=== PATIENT | female | born 1970 | race Caucasian/White ===

== ENCOUNTER → 2017-05-16 | Outpatient (CLI) | payer BC ==
[~2017-05-16] MED LIST: ASPI325T39 PO; BUPRTAB51 PO; CBCI IV; GLC/500 PO; HYD50 PO; INSDGIPEN SQ; NVLG SQ; NVLGIPEN SQ; OXYC-609 PO; [UNRECOGNIZED DRUG - CODE] PO
[2017-05-16 17:41] LABS: BASO % 0.5 %; BASO ABS # 0.05 K/uL (0-0.2); COMPLETE YES; EOS % 1.2 %; HEMATOCRIT 34.8 % (37-47); IG% 0.3 %; LYMPH ABS # 2.61 K/uL (1.2-3.4); MEAN CELL VOLUME 87.2 fL (80-100); MEAN CORPUSCULAR HEMOGLOBIN 29.3 pg (25-34); MEAN CORPUSCULAR HGB CONC 33.6 g/dl (32-36); MEAN PLATELET VOLUME 9.9 fL (7.4-10.4); MONO % 5.9 %; NEUT % 66.1 %; PLATELET COUNT 310 K/uL (130-400); RED BLOOD COUNT 3.99 M/uL (4.2-5.4); WHITE BLOOD COUNT 10.05 K/uL (4.8-10.8)
[2017-05-16 18:05] LABS: ALT/SGPT 27 U/L (12-78); BLOOD UREA NITROGEN 13 mg/dl (7-18); BUN/CREATININE RATIO 16.8 (10-20); CALCIUM 9.1 mg/dl (8.5-10.1); CARBON DIOXIDE 30 mmol/L (21-32); CHLORIDE 99 mmol/L (98-107); CHOLESTEROL 167 mg/dl (0-200); CREATININE 0.76 mg/dl (0.60-1.20); GLUCOSE 129 mg/dl (70-99); POTASSIUM 3.5 mmol/L (3.5-5.1); SODIUM 136 mmol/L (136-145); TRIGLYCERIDES 220 mg/dl (0-150); VERY LOW DENSITY LIPOPROT CALC 44 mg/dl
[2017-05-16 18:10] LABS: ALB/GLOB RATIO 0.9 (0.9-2); ALKALINE PHOSPHATASE 93 U/L (45-117); AST/SGOT 14 U/L (15-37); HDL CHOLESTEROL 42 mg/dl; LDL CHOLESTEROL CALCULATED 81 mg/dl
[2017-05-17 08:23] LABS: ESTIMATED AVERAGE GLUCOSE 203 mg/dl; HA1C FLAG Normal (Normal)
== END | disposition home or self-care (01) ==
LOC: C.LABBFT 15:49
PROVIDERS: ATTEND Nurse Practitioner
DX: E11.29 Type 2 diabetes mellitus with other diabetic kidney complication (principal); E78.5 Hyperlipidemia, unspecified; D64.9 Anemia, unspecified

== ENCOUNTER → 2017-05-18 | Outpatient (CLI) | payer BC ==
--- NOTE | 2017-05-18 19:30 | DIAGNOSTIC IMAGING REPORT ---
LEFT FIFTH TOE 3 VIEWS HISTORY: Assess for osteomyelitis. NON HEALING WOUND COMPARISON: None. FINDINGS: Soft tissue swelling within the left fifth toe. There is focal skin ulceration at the PIP joint. Deep to the skin ulceration at the head of the proximal phalanx of the fifth toe there is focal cortical destruction/erosion which measures 4 mm. There are few adjacent bony fragments. This is consistent with osteomyelitis. No dislocation. No radiopaque foreign bodies. IMPRESSION: Focal cortical erosion at the head of the proximal phalanx of the left fifth toe. This is consistent with osteomyelitis. Electronically signed by: Vlad Rodgers M.D. 05/18/2017 7:29 PM Dictated Date/Time: 05/18/2017 7:27 PM
== END | disposition home or self-care (01) ==
LOC: C.RAD 18:46
PROVIDERS: ATTEND Physician Assistant
DX: S91.105A Unspecified open wound of left lesser toe(s) without damage to nail, initial encounter (principal); X58.XXXA Exposure to other specified factors, initial encounter; R93.7 Abnormal findings on diagnostic imaging of other parts of musculoskeletal system

== ENCOUNTER 2022-01-11 16:55 | Inpatient (IN) ==
[2022-01-11] MEDS ORDERED: SODIUM CHLORIDE 0.9% 1000ML 1,000 ML IV STA (17:24)
[2022-01-11] MEDS ORDERED: ONDANSETRON INJ 2 MG/ML 2 ML VIAL IV STA ×2 (17:24→18:47)
--- NOTE | 2022-01-11 17:24 | ED Triage Note ---
Date of Service January 11, 2022 History of Present Illness This patient was briefly evaluated while in triage. An abbreviated physical exam was performed. This patient is a 51-year-old Female with past medical history of type 1 diabetes who presents to the ED for evaluation of vomiting x 1 week, diarrhea to day. Does have lower right abdominal pain. Has not been checking blood sugars because she is having so much pain. Has had sweats and chills Physical Exam CONSTITUTIONAL: Ill appearing, actively vomiting Unable to perform abdominal exam in triage due to vomiting Initial orders for labs, medication, and / or imaging were placed and patient was placed in the waiting area until a bed is available. Please see further documentation for the full ED course. MDM / Impression Impression Impression: DKA (diabetic ketoacidosis), Pyelonephritis, Metabolic acidosis
[2022-01-11 18:33] LABS: Basophils # (auto) 0.03 K/uL (0-0.2); Basophils % (auto) 0.3 %; Hematocrit (blood only) 37.8 % (34.1-44.9); Immature Granulocytes # (auto) 0.06 K/uL (0.00-0.02); Immature Granulocytes % (auto) 0.5 %; Lymphocytes # (auto) 0.37 K/uL (1.2-3.4); Lymphocytes % (auto) 3.2 %; Mean Corpuscular Hemoglobin 29.9 pg (25.0-34.0); Mean Corpuscular Hgb Conc 34.4 g/dL (32.0-36.0); Mean Corpuscular Volume 86.9 fL (80.0-100.0); Mean Platelet Volume 10.3 fL (9.4-12.3); Monocytes # (auto) 0.69 K/uL (0.24-0.82); Neutrophils # (auto) 10.28 K/uL (1.4-6.5); Platelet Count 160 K/uL (130-400); RDW Coefficient of Variation 14.5 % (11.5-14.5); RDW Standard Deviation 46.1 fL (36.4-46.3); Red Blood Count 4.35 M/uL (3.93-5.22); White Blood Count 11.43 K/ul (4.8-10.8)
[2022-01-11] MEDS ORDERED: SODIUM CHLORIDE 0.9% 1000ML 2,000 ML IV ONE (18:47)
--- NOTE | 2022-01-11 19:08 | Emergency Department Note ---
Impression & Plan DKA (diabetic ketoacidosis), Pyelonephritis, Metabolic acidosis ED Provider Note NAME: FROYLAN HOPPER AGE: 51 SEX: F : 1970 ARRIVES VIA: Walk-In INFORMANT: Patient ED PROVIDER(S): Miguel A Silvestre DO CHIEF COMPLAINT: vomiting and abdominal pain HPI: Patient is a 51-year-old female with a past medical history of diabetes, and hyperlipidemia that presents the ER for nausea and vomiting which started this past Monday. She has been throwing up once an hour since then. She has been unable to keep anything down. She has not checked her blood sugars due to not eating or drinking. She denies any dysuria, urgency, or frequency. Belly pain on the right side which started this past Monday as well. Has been constant. No other exacerbating or remitting factors. Pain is sharp and stabbing in nature. Pain is a 6 out of 10. ROS: See above HPI for pertinent positives & negatives. A total of 10 systems reviewed and were otherwise negative. PAST MEDICAL HISTORY:See Below PAST SURGICAL HISTORY:See Below FAMILY HISTORY:See Below SOCIAL HISTORY:See Below HOME MEDICATIONS:See Below ALLERGIES:See Below VITALS:See Below PHYSICAL EXAMINATION: GENERAL: Sitting up in bed, alert, appearing, intermittently vomiting EYE EXAM: normal conjunctiva. OROPHARYNX: mucous membranes are dry LUNGS: Clear to auscultation. Normal chest wall mechanics HEART: no murmurs, S1 normal and S2 normal ABDOMEN: abdomen soft, non-tender, normo-active bowel sounds, no masses, no rebound or guarding. UPPER EXTREMITIES: upper extremities are grossly normal. LOWER EXTREMITIES: No pitting edema. NEURO EXAM: Normal sensorium, cranial nerves II-XII grossly intact, normal speec h, no gross weakness of arms, no gross weakness of legs. MEDICAL DECISION MAKING: Patient is a 51-year-old female who presents ER for nausea vomiting and abdominal pain. She is diabetic. Due to the protracted weights was called to triage room to evaluate patient. IVs were established blood work is obtained. Labs show mild leukocytosis 11,000. No significant anemia. BMP with a hyponatremia at 129 which is pseudo secondary to the elevated blood sugar. Hypokalemia at 3.4. IV potassium was ordered. CO2 was low at 10. VBG with a pH of 7.25 and a CO2 of 11. Sugars were elevated at 535. LFTs and lipase were unremarkable. COVID was negative. CT abdomen pelvis shows pyelonephritis. She is given 2 g Rocephin as well as 3 to 4 L of IV fluids in combination with an insulin drip and bolus as well as IV potassium. She was updated bedside. Discussed with Efe Dorsey for further evaluation. Triage Nursing notes reviewed. Limited review of prior medical records performed Vital Signs: reviewed and remarkable for HTn and tachycardia Differential diagnosis: Differential diagnoses includes but is not limited to gastritis, peptic ulcer disease, GERD, gallbladder disease, pancreatitis, small bowel obstruction, acute coronary syndrome, pericarditis, ischemic bowel, irritable bowel disease, irritable bowel syndrome, appendicitis, diverticulitis, malignancy, hernia, urinary tract infection, torsion, /ectopic (if female), perforation, trauma, infectious. ER treatment provided: See below Diagnostics interpreted by me: ECG: Sinus tachycardia rate of 128 Normal axis No PVCs QTC 458 Cardiac Monitoring: An order was placed for continuous cardiac monitoring. The monitor shows a rate of 124 with sinus rhythm. Laboratory studies: As stated above and show below. Imaging studies: CT abdomen pelvis shows pyelonephritis Consultation(s): Efe Dorsey for further evaluation Procedures: none Critical Care: I have personally spent 35 minutes of critical care time in the direct management of this patient. This includes bedside care, interpretation of diagnostic studies, and testing, discussion with consultants, patient, and family members, and other required patient management activities. This 35 minutes is in excess of all separately billable procedures. Past Med/Surg History Medical History (Updated 01/11/22 @ 22:12 by Miguel A Silvestre DO) Allergic rhinitis Anemia Background diabetic retinopathy associated with type 1 diabetes mellitus Cataract, bilateral Charcot's joint of 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 1 diabetes mellitus Degenerative joint disease Depression Diabetes type 1, uncontrolled Diabetic foot ulcer associated with type 1 diabetes mellitus Diabetic peripheral neuropathy associated with type 1 diabetes mellitus DKA (diabetic ketoacidosis) Dyslipidemia Grief at loss of child Obesity Osteoarthritis Papilloedema, unspecified Pneumonia Tachycardia Vitamin D deficiency Surgical History H/O carpal tunnel repair History of total right hip arthroplasty S/P hip replacement Family History Mother Stroke Sister Arthritis Aunt Breast cancer Uncle Diabetes Social History (Updated 09/02/21 @ 15:23 by Merced Munoz LPN) Smoking Status: Never smoker Second Hand Exposure: No; Hx Alcohol Use: Yes Hx Substance Use: No Communication Ability: Effective Visual Impairment: Severely Limited Hearing Ability: Normal Cobol Engineer Required: No Beliefs That Will Affect Care: None marital status: Current Living Situation: Family Current Living Situation Comment: lives with /2 kids; 1 story; 4 steps/railing to enter current occupational status: employed 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 Feels Safe at Home: Yes Allergies Allergies Allergy/AdvReac Type Severity Reaction Status Date / Time No Known Allergies Allergy Unknown Verified 01/11/22 20:20 Home Meds Home Medications Medication Instructions Recorded Confirmed cinnamon bark 500 mg capsule 1,000 mg PO DAILY 07/07/21 01/11/22 (Cinnamon) ibuprofen 200 mg tablet (Advil) 400 mg PO Q6 PRN Pain 01/11/22 01/11/22 insulin lispro 100 unit/mL 0 unit subcut TIDM PRN SLIDING 01/11/22 01/11/22 subcutaneous pen (Humalog KwikPen SCALE (U-100) Insulin) Previous Rx's Medication Instructions Recorded pen needle, diabetic 31 gauge x #400 ea 04/08/2010/18" (Comfort EZ Pen Plover) flash glucose sensor (FreeStyle #1 ea 05/08/20 Greer 14 Day Sensor kit) furosemide 40 mg tablet 60 mg PO DAILY #45 tabs 02/15/21 metformin 500 mg tablet,extended 1,500 mg PO DAILY #270 tabs 02/15/21 release 24 hr simvastatin 40 mg tablet 40 mg PO QPM #90 tabs 02/15/21 blood sugar diagnostic (OneTouch #400 ea 06/02/21 Verio test strips) blood-glucose meter (OneTouch #1 ea 06/02/21 Verio Flex Start kit) lancets 33 gauge (OneTouch Delica #400 ea 06/02/21 Lancets) insulin degludec 100 unit/mL (3 50 unit (0.5 mL) subcut QPM #15 mL 08/18/21 mL) subcutaneous pen (Tresiba FlexTouch U-100 insulin) hydrocodone 5 mg-acetaminophen 325 1 tab PO Q6H PRN pain #20 tabs 01/07/22 mg tablet Results & Data (ED) Vital Signs Vital Signs - 24 hr 01/11/22 17:17 01/11/22 19:19 01/11/22 19:30 Temperature 36.8 C Temperature Source Temporal Artery Scan Pulse Rate 118 H 125 H Pulse Rate [Apical] 124 H Respiratory Rate 18 27 H 20 Blood Pressure 171/105 H 190/85 H Blood Pressure [Right Arm] 209/98 H Blood Pressure Mean 127 120 Blood Pressure Mean [Right Arm] 135 Pulse Oximetry 99 100 100 Oxygen Delivery Method Room Air Room Air Room Air Sepsis Recent Fever Within 48 Hours No Sepsis New/Unexplained Change in Mental Status No Sepsis Action Taken by Nursing No Action Required 01/11/22 20:00 Temperature Temperature Source Pulse Rate 124 H Pulse Rate [Apical] Respiratory Rate 32 H Blood Pressure 192/116 H Blood Pressure [Right Arm] Blood Pressure Mean 141 Blood Pressure Mean [Right Arm] Pulse Oximetry 100 Oxygen Delivery Method Sepsis Recent Fever Within 48 Hours Sepsis New/Unexplained Change in Mental Status Sepsis Action Taken by Nursing Laboratory Data Result diagrams: 01/11/22 18:23 01/11/22 18:23 Lab Results 01/11/22 01/11/22 01/11/22 Range/Units 18:13 18:23 18:23 WBC 11.43 H (4.8-10.8) K/ul RBC 4.35 (3.93-5.22) M/uL Hgb 13.0 (12.0-16.0) g/dl Hct 37.8 (34.1-44.9) % MCV 86.9 (80.0-100.0) fL MCH 29.9 (25.0-34.0) pg MCHC 34.4 (32.0-36.0) g/dL RDW Std Deviation 46.1 (36.4-46.3) fL RDW Coeff of Benny 14.5 (11.5-14.5) % Plt Count 160 (130-400) K/uL MPV 10.3 (9.4-12.3) fL Immature Gran % (Auto) 0.5 % Neut % (Auto) 90.0 % Lymph % (Auto) 3.2 % Perkins % (Auto) 6.0 % Eos % (Auto) 0.0 % Baso % (Auto) 0.3 % Neut # (Auto) 10.28 H (1.4-6.5) K/uL Lymph # (Auto) 0.37 L (1.2-3.4) K/uL Perkins # (Auto) 0.69 (0.24-0.82) K/uL Eos # (Auto) 0.00 (0-0.50) K/uL Baso # (Auto) 0.03 (0-0.2) K/uL Immature Gran # (Auto) 0.06 H (0.00-0.02) K/uL VBG pH (7.36-7.41) VBG pCO2 (38-50) mmHg VBG pO2 mmHg VBG HCO3 mmol/L VBG O2 Saturation % VBG Base Excess mEq/L Sodium 129 L (136-145) mmol/L Potassium 3.4 L (3.5-5.1) mmol/L Chloride 89 L (98-107) mmol/L Carbon Dioxide 10 L (21-32) mmol/L Anion Gap 30 H (3-11) BUN 18 (6-23) mg/dl Creatinine 0.94 (0.6-1.2) mg/dl Est Cr Clr Drug Dosing Not Reportable Est GFR ( Amer) 82.0 ml/min Est GFR (Non-Af Amer) 70.7 ml/min BUN/Creatinine Ratio 19.1 (10-20) Glucose 535 H* (70-99(Fasting)) mg/dl POC Glucose 531 H* (70-99) mg/dl Calcium 9.8 (8.5-10.1) mg/dl Magnesium (1.7-2.4) mg/dl Total Bilirubin 1.4 H (0.2-1.0) mg/dl AST 10 L (13-39) U/L ALT 17 (7-52) U/L Alkaline Phosphatase 97 (34-104) U/L Total Protein 7.8 (6.0-8.3) gm/dl Albumin 4.1 (3.4-5.0) gm/dl Globulin 3.7 (2.5-4.0) gm/dl Albumin/Globulin Ratio 1.1 (0.9-2) Lipase 7 L (11-82) U/L SARS-CoV-2, RNA, NAAT (NEGATIVE) 01/11/22 01/11/22 01/11/22 Range/Units 18:23 18:32 19:03 WBC (4.8-10.8) K/ul RBC (3.93-5.22) M/uL Hgb (12.0-16.0) g/dl Hct (34.1-44.9) % MCV (80.0-100.0) fL MCH (25.0-34.0) pg MCHC (32.0-36.0) g/dL RDW Std Deviation (36.4-46.3) fL RDW Coeff of Benny (11.5-14.5) % Plt Count (130-400) K/uL MPV (9.4-12.3) fL Immature Gran % (Auto) % Neut % (Auto) % Lymph % (Auto) % Perkins % (Auto) % Eos % (Auto) % Baso % (Auto) % Neut # (Auto) (1.4-6.5) K/uL Lymph # (Auto) (1.2-3.4) K/uL Perkins # (Auto) (0.24-0.82) K/uL Eos # (Auto) (0-0.50) K/uL Baso # (Auto) (0-0.2) K/uL Immature Gran # (Auto) (0.00-0.02) K/uL VBG pH 7.25 L (7.36-7.41) VBG pCO2 25 L (38-50) mmHg VBG pO2 42 mmHg VBG HCO3 11 mmol/L VBG O2 Saturation 66.3 % VBG Base Excess -14.5 mEq/L Sodium (136-145) mmol/L Potassium (3.5-5.1) mmol/L Chloride (98-107) mmol/L Carbon Dioxide (21-32) mmol/L Anion Gap (3-11) BUN (6-23) mg/dl Creatinine (0.6-1.2) mg/dl Est Cr Clr Drug Dosing Est GFR ( Amer) ml/min Est GFR (Non-Af Amer) ml/min BUN/Creatinine Ratio (10-20) Glucose (70-99(Fasting)) mg/dl POC Glucose (70-99) mg/dl Calcium (8.5-10.1) mg/dl Magnesium 1.7 (1.7-2.4) mg/dl Total Bilirubin (0.2-1.0) mg/dl AST (13-39) U/L ALT (7-52) U/L Alkaline Phosphatase (34-104) U/L Total Protein (6.0-8.3) gm/dl Albumin (3.4-5.0) gm/dl Globulin (2.5-4.0) gm/dl Albumin/Globulin Ratio (0.9-2) Lipase (11-82) U/L SARS-CoV-2, RNA, NAAT NEGATIVE (NEGATIVE) 01/11/22 Range/Units 21:51 WBC (4.8-10.8) K/ul RBC (3.93-5.22) M/uL Hgb (12.0-16.0) g/dl Hct (34.1-44.9) % MCV (80.0-100.0) fL MCH (25.0-34.0) pg MCHC (32.0-36.0) g/dL RDW Std Deviation (36.4-46.3) fL RDW Coeff of Benny (11.5-14.5) % Plt Count (130-400) K/uL MPV (9.4-12.3) fL Immature Gran % (Auto) % Neut % (Auto) % Lymph % (Auto) % Perkins % (Auto) % Eos % (Auto) % Baso % (Auto) % Neut # (Auto) (1.4-6.5) K/uL Lymph # (Auto) (1.2-3.4) K/uL Perkins # (Auto) (0.24-0.82) K/uL Eos # (Auto) (0-0.50) K/uL Baso # (Auto) (0-0.2) K/uL Immature Gran # (Auto) (0.00-0.02) K/uL VBG pH (7.36-7.41) VBG pCO2 (38-50) mmHg VBG pO2 mmHg VBG HCO3 mmol/L VBG O2 Saturation % VBG Base Excess mEq/L Sodium (136-145) mmol/L Potassium (3.5-5.1) mmol/L Chloride (98-107) mmol/L Carbon Dioxide (21-32) mmol/L Anion Gap (3-11) BUN (6-23) mg/dl Creatinine (0.6-1.2) mg/dl Est Cr Clr Drug Dosing Est GFR ( Amer) ml/min Est GFR (Non-Af Amer) ml/min BUN/Creatinine Ratio (10-20) Glucose (70-99(Fasting)) mg/dl POC Glucose 475 H* (70-99) mg/dl Calcium (8.5-10.1) mg/dl Magnesium (1.7-2.4) mg/dl Total Bilirubin (0.2-1.0) mg/dl AST (13-39) U/L ALT (7-52) U/L Alkaline Phosphatase (34-104) U/L Total Protein (6.0-8.3) gm/dl Albumin (3.4-5.0) gm/dl Globulin (2.5-4.0) gm/dl Albumin/Globulin Ratio (0.9-2) Lipase (11-82) U/L SARS-CoV-2, RNA, NAAT (NEGATIVE) Administered Medications Insulin Human Regular 250 (units/ Sodium Chloride) 250 mls @ 10 mls/hr IV .Q24H ERNESTO; Protocol Stop: 02/10/22 19:59 Last Admin: 01/11/22 21:25 Dose: 10 units/hr, 10 mls/hr Documented By: ERLINDA Co-signed By: MARCELINOR Discontinued Medications Sodium Chloride (Nss 1000ml) 1,000 mls @ 999 mls/hr IV .Q1H1M STA Stop: 01/11/22 18:24 Last Admin: 01/11/22 18:28 Dose: 999 mls/hr Documented By: DEBRA Sodium Chloride (Nss 1000ml) 2,000 mls @ 999 mls/hr IV .Q2H1M ONE Stop: 01/11/22 20:47 Last Admin: 01/11/22 21:55 Dose: 999 mls/hr Documented By: ERLINDA Potassium Chloride (K Ian / Wtr) 10 meq in 100 mls @ 100 mls/hr IV Q1H ERNESTO; Protocol Stop: 01/11/22 21:59 Last Admin: 01/11/22 20:29 Dose: 100 mls/hr Documented By: ERLINDA Parenteral Electrolytes (Normosol-R) 2,000 mls @ 999 mls/hr IV .Q2H1M ONE Stop: 01/11/22 22:07 Last Admin: 01/11/22 20:38 Dose: 999 mls/hr Documented By: ERLINDA Insulin Human Regular (Novolin-R Bolus From Bag) 10 units IV ONE ONE Stop: 01/11/22 20:46 Last Admin: 01/11/22 21:23 Dose: 10 units Documented By: ERLINDA Co-signed By: KHANH Ioversol (Optiray 320 100ml) 91 ml IV ONCE ONE Stop: 01/11/22 20:53 Last Admin: 01/11/22 20:52 Dose: 91 ml Documented By: LION Galvananeous (Stat Insulin Drip) 1 each N/A NOW STA Stop: 01/11/22 19:57 Last Admin: 01/11/22 21:56 Dose: Not Given Documented By: ERLINDA King (Dka Goal Range 150-250 Mg/Dl) 1 each N/A ONE ONE Stop: 01/11/22 19:57 Last Admin: 01/11/22 21:56 Dose: Not Given Documented By: ERLINDA Ondansetron HCl (Ondansetron Inj 2 Mg/Ml 2 Ml Vial) 4 mg IV NOW STA Stop: 01/11/22 17:25 Last Admin: 01/11/22 18:28 Dose: 4 mg Documented By: DEBRA Ondansetron HCl (Ondansetron Inj 2 Mg/Ml 2 Ml Vial) 4 mg IV NOW STA Stop: 01/11/22 18:48 Last Admin: 01/11/22 21:56 Dose: Not Given Documented By: ERLINDA Ondansetron HCl (Ondansetron Inj 2 Mg/Ml 2 Ml Vial) Confirm Administered Dose 4 mg .ROUTE .STK-MED ONE Stop: 01/11/22 21:16 Last Admin: 01/11/22 21:26 Dose: 4 mg Documented By: ERLINDA Imaging Data Radiologist's Impression: Abdomen/Pelvis CT 01/11/22 18:47 CT OF THE ABDOMEN AND PELVIS WITH CONTRAST CLINICAL HISTORY: Right lower quadrant abdominal pain. COMPARISON STUDY: None. TECHNIQUE: Following IV administration of 91 mL of Optiray, axial images of the abdomen and pelvis were obtained from the lung bases to the proximal femurs. Images were reviewed in the axial, sagittal, and coronal planes. IV contrast was administered without complication. Automated exposure control was utilized for the study. A dose lowering technique was utilized adhering to the principles of ALARA. CT DOSE: 2125.15 mGy.cm FINDINGS: Lung bases are unremarkable. No pneumatosis, free air or portal venous gas is present. This exam is mildly compromised by motion artifact. Mild splenomegaly is noted. There are no hepatic lesions. No biliary or pancreatic ductal dilatation is noted. Subcentimeter left adrenal nodule is indeterminate but probably benign. Right adrenal gland, pancreas and left kidney are normal. There is no hydronephrosis. No urinary calculi are identified. There is mild bladder wall thickening. There are several hypoenhancing foci within the right kidney with mild right perinephric stranding. These include a 2.3 cm hypodense focus within the upper pole of the right kidney without rim enhancement. This may reflect phlegmon. There is mild urothelial thickening of the right collecting system and possibly the right ureter. Colonic diverticulosis is noted without evidence for acute diverticulitis. There is no evidence for a bowel obstruction. The caliber and wall thickness of small and large bowel are normal. The appendix is normal. There are small fat-containing ventral and umbilical hernias. Right hip arthroplasty is noted. No acute fracture or suspicious lesion is identified within visualized skeletal structures. There is no lymphadenopathy. IMPRESSION: 1. Findings suggestive of right pyelonephritis and possible associated right pyelitis and cystitis. This could be correlated with urinalysis. A few hypoenhancing foci within the right kidney measure up to 2.3 cm and may reflect phlegmon. No well-defined rim-enhancing fluid collection to suggest abscess. A follow-up contrast enhanced CT in 3 months to ensure resolution is recommended. 2. No bowel obstruction. No bowel wall thickening. Colonic diverticulosis without evidence for acute diverticulitis. 3. Mild splenomegaly. ACT 112: Negative or not required by law. Electronically signed by: Xiang Lewis M.D. 01/11/2022 9:29 PM Discharge Plan Visit Data Chief Complaint: Illness Stated Complaint: ILLNESS ED Provider: Miguel A Silvestre Discharge Problem: DKA (diabetic ketoacidosis), Pyelonephritis, Metabolic acidosis Forms Stand Alone Forms: [facility] Prescriptions Prescriptions: No Action cinnamon bark [Cinnamon] 500 mg capsule 1,000 mg PO DAILY (DME) pen needle, diabetic [Comfort EZ Pen Plover] 31 gauge x 5/16" needle See Dose Instructions .ROUTE .MEDSUPPLY Qty: 400 2RF Rx Instructions: inject 4 times daily as directed Tresiba FlexTouch U-100 100 unit/mL (3 mL) insulin pen 50 unit subcut QPM Qty: 15 2RF (DME) FreeStyle Greer 14 Day Sensor Kit See Rx Instructions miscellaneous .MEDSUPPLY Qty: 1 3RF Rx Instructions: As directed furosemide 40 mg tablet 60 mg PO DAILY Qty: 45 5RF metformin 500 mg tablet extended release 24 hr 1,500 mg PO DAILY Qty: 270 3RF simvastatin 40 mg tablet 40 mg PO QPM Qty: 90 3RF (DME) lancets [OneTouch Delica Lancets] 33 gauge misc See Dose Instructions .ROUTE .MEDSUPPLY Qty: 400 3RF Rx Instructions: Test blood sugar 4 times daily and prn (DME) OneTouch Verio test strips Strip See Dose Instructions .ROUTE .MEDSUPPLY Qty: 400 3RF Rx Instructions: test blood sugar four times daily and prn (DME) blood-glucose meter [OneTouch Verio Flex Start] Kit See Rx Instructions .Route Qty: 1 0RF Rx Instructions: As directed hydrocodone-acetaminophen 5-325 mg tablet 1 tab PO Q6H PRN (Reason: pain) Qty: 20 0RF ibuprofen [Advil] 200 mg Tablet 400 mg PO Q6 PRN (Reason: Pain) insulin lispro [Humalog KwikPen Insulin] 100 unit/mL insulin pen 0 unit SQ TIDM PRN (Reason: SLIDING SCALE) Referrals Referrals: Priscilla Lewis MD [Primary Care Provider] -
[2022-01-11 19:19] LABS: Base Excess VBG -14.5 mEq/L; HCO3 VBG 11 mmol/L; Oxygen Saturation VBG 66.3 %; PCO2 VBG 25 mmHg (38-50); PO2 VBG 42 mmHg; pH VBG 7.25 (7.36-7.41)
[2022-01-11 19:51] LABS: Alanine Aminotransferase 17 U/L (7-52); Albumin Globulin Ratio 1.1 (0.9-2); Albumin Level 4.1 gm/dl (3.4-5.0); Alkaline Phosphatase 97 U/L (34-104); Anion Gap 30 (3-11); Aspartate Aminotransferase 10 U/L (13-39); BUN Creatinine Ratio 19.1 (10-20); Bilirubin,Total 1.4 mg/dl (0.2-1.0); Blood Urea Nitrogen 18 mg/dl (6-23); Calcium 9.8 mg/dl (8.5-10.1); Carbon Dioxide 10 mmol/L (21-32); Chloride 89 mmol/L (98-107); Est GFR (Non-African American) 70.7 ml/min; Globulin 3.7 gm/dl (2.5-4.0); Glucose 535 mg/dl (70-99(Fasting)); Lipase 7 U/L (11-82); Potassium 3.4 mmol/L (3.5-5.1); Sodium 129 mmol/L (136-145); Total Protein 7.8 gm/dl (6.0-8.3)
[2022-01-11] MEDS ORDERED: DEXTROSE 50% 50 ML SYRINGE IV PRN (19:56)
[2022-01-11] MEDS ORDERED: GLUCOSE 40% GEL 15 GM TUBE PO PRN (19:56)
[2022-01-11] MEDS ORDERED: CARBOHYDRATES FOR HYPOGLYCEMIA PO PRN (19:56)
[2022-01-11] MEDS ORDERED: GLUCOSE 10 TAB/TUBE PO PRN (19:56)
[2022-01-11] MEDS ORDERED: STAT INSULIN DRIP STA (19:56)
[2022-01-11] MEDS ORDERED: DKA GOAL RANGE 150-250 mg/dl ONE (19:56)
[2022-01-11] MEDS ORDERED: GLUCAGON FOR INJ 1 MG VIAL SQ PRN (19:56)
[2022-01-11] MEDS ORDERED: INSULIN REGULAR 250 UNITS in SODIUM CHLORIDE 0.9% 247.5 ML IV SCH (20:00)
[2022-01-11] MEDS ORDERED: NORMOSOL-R 2,000 ML IV ONE (20:07)
[2022-01-11] MEDS: POTASSIUM CHLORIDE / WTR 10 MEQ/100 ML PLCT IV SCH ×2 (20:29→22:27)
[2022-01-11] MEDS ORDERED: NovoLIN-R BOLUS FROM BAG IV ONE (20:45)
[2022-01-11] MEDS ORDERED: OPTIRAY 320 100ml IV ONE (20:52)
[2022-01-11] MEDS ORDERED: INSULIN ASPART PER UNIT SC SCH (21:00)
[2022-01-11] MEDS ORDERED: ONDANSETRON INJ 2 MG/ML 2 ML VIAL ONE (21:15)
--- NOTE | 2022-01-11 21:31 | CT Scan Report ---
CT OF THE ABDOMEN AND PELVIS WITH CONTRAST CLINICAL HISTORY: Right lower quadrant abdominal pain. COMPARISON STUDY: None. TECHNIQUE: Following IV administration of 91 mL of Optiray, axial images of the abdomen and pelvis we re obtained from the lung bases to the proximal femurs. Images were reviewed in the axial, sagittal, and coronal planes. IV contrast was administered without complication. Automated exposure control wa s utilized for the study. A dose lowering technique was utilized adhering to the principles of ALARA . CT DOSE: 2125.15 mGy.cm FINDINGS: Lung bases are unremarkable. No pneumatosis, free air or portal venous gas is present. This exam is mildly compromised by motion artifact. Mild splenomegaly is noted. There are no hepatic lesi ons. No biliary or pancreatic ductal dilatation is noted. Subcentimeter left adrenal nodule is indete rminate but probably benign. Right adrenal gland, pancreas and left kidney are normal. There is no hy dronephrosis. No urinary calculi are identified. There is mild bladder wall thickening. There are sev eral hypoenhancing foci within the right kidney with mild right perinephric stranding. These include a 2.3 cm hypodense focus within the upper pole of the right kidney without rim enhancement. This may reflect phlegmon. There is mild urothelial thickening of the right collecting system and possibly the right ureter. Colonic diverticulosis is noted without evidence for acute diverticulitis. There is no evidence for a bowel obstruction. The caliber and wall thickness of small and large bowel are normal . The appendix is normal. There are small fat-containing ventral and umbilical hernias. Right hip art hroplasty is noted. No acute fracture or suspicious lesion is identified within visualized skeletal s tructures. There is no lymphadenopathy. IMPRESSION: 1. Findings suggestive of right pyelonephritis and possible associated right pyelitis and cystitis. T his could be correlated with urinalysis. A few hypoenhancing foci within the right kidney measure up to 2.3 cm and may reflect phlegmon. No well-defined rim-enhancing fluid collection to suggest abscess . A follow-up contrast enhanced CT in 3 months to ensure resolution is recommended. 2. No bowel obstruction. No bowel wall thickening. Colonic diverticulosis without evidence for acute diverticulitis. 3. Mild splenomegaly. ACT 112: Negative or not required by law. Electronically signed by: Xiang Lewis M.D. 01/11/2022 9:29 PM
[2022-01-11] MEDS ORDERED: cefTRIAXone SODIUM 2,000 MG/70 ML BAG IV STA (21:38)
--- NOTE | 2022-01-11 22:04 | History & Physical Report ---
Date of Service January 11, 2022 Assessment & Plan (1) DKA (diabetic ketoacidosis): Plan: -VBG showed 7.25 pH, 25 pCO2 -BMP: Na 129, K 3.4, Cl 89, CO2 10, anion gap 30 -POC glucose 531, lactate 1.5 # -Patient has been a uncontrolled diabetic in the past with HgA1C between 8.7- 12.5 from [id number]. -Patient has not been taking her insulin and has not been checking her sugars recently -DKA protocol below: Insulin gtt per protocol Received 3L NSS in ED Continue NSS + 20 mEq KCl @ 250mL/hr Once BSG goal is achieved (150-250), change fluids to D5 NSS + 20 mEq KCl @ 250mL/hr Continue BSG q1h BMP, magnesium, phosphorous, and VBG q4h Once anion gap closes, switch from insulin gtt to sq Diabetic education consult placed, recommendations appreciated (2) Pyelonephritis of right kidney: Plan: -CT ab/pelvis findings suggest R pyelonephritics and possible associated R pyelitis and cystitis. -Cr was normal 0.94 -Will continue ceftriaxone IV 2g q24 hours -UA showed 3+ glucose, 4+ketones, 3+blood, 10-30 WBC, 10-20 epithelial cells (3) Diabetes type 1, uncontrolled: Plan: -Patient has history of uncontrolled diabetes with high HgA1C, ulcers, osteomyelitis, -Will have patient talk with clinical nurse educator to discuss further management (4) RUQ pain: Plan: -Total bilirubin 1.4 -AST, ALT, Lipase, Alk phos WNL -CT ab/pelvis was negative for any gallbladder pathology -Will obtain RUQ US. (5) Diabetic foot ulcers: Plan: -Wound care nurse consult -Wound care daily (6) Pseudohyponatremia: Plan: -Na 129 on labs but when corrected for hyperglycemia = 136 -No treatment needed at this time, continue to monitor in AM labs (7) Dyslipidemia: Plan: -Holding home statin. Can continue on discharge (8) Lumbar radiculopathy: Plan: -holding home oxycodone. Will considering restarting once DKA resolves. Plan Code staus: Full code DVT ppx: lovenox Dispo: PCU/Tele Thank you for allowing me to participate in the care of your patient. -Dr. Jerrod Ayala PGY1 History of Present Illness Chief Complaint: N/V Primary Care Provider: Priscilla Lewis MD Patient is a 51 y/o female with PMHx of DM type 1 (uncontrolled), HLD, charcot's joint of foot, multiple diabetic foot ulcers with previous osteomyelitis, presents today with N/V since Monday. she states that she has been vomiting every hour and not been able to eat anything. She states that she is currently taking metformin, Humalog and SSI but has not taken anything since Monday. She has not recently checked her sugars since Monday. She also c/o R sided ab pain that started around the same time as the N/V on Monday. She also states that she saw ortho last for sciatic pain and was started on 1 oxycodone every 6 hours. On top of the oxycodone, she is also taking 4 Advil every 6 hours but the pain still persists. She states that has some SOB recently. She denies any dysuria, urinary frequency or urgency, fevers, chills, or new infections. Allergies Allergy/AdvReac Type Severity Reaction Status Date / Time No Known Allergies Allergy Unknown Verified 01/11/22 20:20 Home Medications Medication Instructions Recorded Confirmed Type pen needle, diabetic 31 gauge x #400 ea 04/08/20 09/02/21 Rx 5/16" (Comfort EZ Pen [place]) flash glucose sensor (FreeStyle #1 ea 05/08/20 09/02/21 Rx Greer 14 Day Sensor kit) furosemide 40 mg tablet 60 mg PO DAILY #45 tabs 02/15/21 01/11/22 Rx metformin 500 mg tablet,extended 1,500 mg PO DAILY #270 tabs 02/15/21 01/11/22 Rx release 24 hr simvastatin 40 mg tablet 40 mg PO QPM #90 tabs 02/15/21 01/11/22 Rx blood sugar diagnostic (OneTouch #400 ea 06/02/21 09/02/21 Rx Verio test strips) blood-glucose meter (OneTouch #1 ea 06/02/21 09/02/21 Rx Verio Flex Start kit) lancets 33 gauge (OneTouch Delica #400 ea 06/02/21 09/02/21 Rx Lancets) cinnamon bark 500 mg capsule 1,000 mg PO DAILY 07/07/21 01/11/22 History (Cinnamon) insulin degludec 100 unit/mL (3 50 unit (0.5 mL) subcut QPM #15 mL 08/18/21 01/11/22 Rx mL) subcutaneous pen (Tresiba FlexTouch U-100 insulin) hydrocodone 5 mg-acetaminophen 325 1 tab PO Q6H PRN pain #20 tabs 01/07/22 01/11/22 Rx mg tablet ibuprofen 200 mg tablet (Advil) 400 mg PO Q6 PRN Pain 01/11/22 01/11/22 History insulin lispro 100 unit/mL 0 unit subcut TIDM PRN SLIDING 01/11/22 01/11/22 History subcutaneous pen (Humalog KwikPen SCALE (U-100) Insulin) Past Med/Surg History Medical History (Updated 01/11/22 @ 23:14 by Jerrod Ayala DO) Allergic rhinitis Anemia Background diabetic retinopathy associated with type 1 diabetes mellitus Cataract, bilateral Charcot's joint of 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 1 diabetes mellitus Degenerative joint disease Depression Diabetes type 1, uncontrolled Diabetic foot ulcer associated with type 1 diabetes mellitus Diabetic foot ulcers Diabetic peripheral neuropathy associated with type 1 diabetes mellitus DKA (diabetic ketoacidosis) Dyslipidemia Grief at loss of child Obesity Osteoarthritis Papilloedema, unspecified Pneumonia Tachycardia Vitamin D deficiency Surgical History H/O carpal tunnel repair History of total right hip arthroplasty S/P hip replacement Family History Mother Stroke Sister Arthritis Aunt Breast cancer Uncle Diabetes Social History (Updated 09/02/21 @ 15:23 by Merced Munoz LPN) Smoking Status: Never smoker Second Hand Exposure: No; Hx Alcohol Use: Yes Hx Substance Use: No Communication Ability: Effective Visual Impairment: Severely Limited Hearing Ability: Normal Frame Runner Required: No Beliefs That Will Affect Care: None marital status: Current Living Situation: Family Current Living Situation Comment: lives with /2 kids; 1 story; 4 steps/railing to enter current occupational status: employed 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 Feels Safe at Home: Yes Review of Systems Review of Systems: All systems reviewed & are unremarkable except as noted in HPI & below Physical Exam Constitutional: + acute distress, + obese and cooperative Eyes: PERRL, conjunctivae normal, anicteric sclerae ENMT: external ear and nose normal, oropharynx normal Respiratory: + tachypneic Auscultation: lungs clear to auscultation bilaterally Cardiovascular: Rate/Rhythm: regular rhythm and + tachycardic Heart Sounds: no murmur Extremities: no edema Gastrointestinal (Abdomen): Inspection/Auscultation: normal bowel sounds Percussion/Palpation: + abdomen tender (R side) and abdomen soft Musculoskeletal: R foot in boot, L foot no pitting edema Skin: no rashes, warm and dry Psychiatric: A+Ox3, euthymic affect Results & Data Results & Data ([facility]) Vital Signs (Past 12 Hours) Vital Signs Temp Pulse Pulse Resp BP BP Pulse Ox 01/11/22 20:00 124 H 32 H 192/116 H 100 01/11/22 19:30 125 H 20 190/85 H 100 01/11/22 19:19 124 H 27 H 209/98 H 100 01/11/22 17:17 36.8 C 118 H 18 171/105 H 99 O2 Del Method 01/11/22 20:00 01/11/22 19:30 Room Air 01/11/22 19:19 Room Air 01/11/22 17:17 Room Air Supervising Physician Co-Signing Physician Notes I supervised Jerrod Ayala on this admission. I interviewed and examined the patient independently of him. The plan is as written in the note except for any following changes/exceptions: None 51yo F w/ hx of poorly-controlled diabetes admitted today for DKA likely due to pyelonephritis. No symptoms of UTI, but CT a/p showed right pyelonephritis, and she does have right-sided pain. She is not in acute distress on my interview, and vitals are stable apart from tachycardia. Will treat with ceftriaxone for pyelonephritis while cultures cook and will also get RUQ u/s as some of her pain is more in the RUQ than right flank. DKA being treated via insulin protocol. Resident Activity Tracking Resident Involvement: Resident Care Provided Care Provided: Adult [facility]
[2022-01-11 23:12] LABS: Appearance Urine Clear (Clear); Bacteria Urine Automated Negative (Negative); Bilirubin Urine Negative (Negative); Blood Urine 3+ (Negative); Cast Urine Automated 0 /lpf (0-5); Color Urine Yellow; Glucose Urine UA 3+ (Negative); Ketones Urine 4+ (Negative); Leukocyte Esterase Urine Negative (Negative); Nitrite Urine Negative (Negative); Protein Urine 1+ (Negative); RBC Urine Automated 0-4 /hpf (0-4); Specific Gravity Urine 1.026 (1.000-1.030); Urobilinogen Urine Negative (Negative)
[2022-01-12] MEDS ORDERED: STAT IV Infusion **Titration per Protocol STA (00:06)
[2022-01-12] MEDS ORDERED: DKA GOAL RANGE 150-250 mg/dl ONE (00:06)
[2022-01-12] MEDS ORDERED: SODIUM CHLORIDE 0.45 % 1,000 ML IV SCH (00:06)
[2022-01-12] MEDS ORDERED: INSULIN REGULAR 250 UNITS in SODIUM CHLORIDE 0.9% 247.5 ML IV SCH (00:06)
[2022-01-12] MEDS ORDERED: PHARMACY GLYCEMIC MGMT CONSULT PRN (00:06)
[2022-01-12] MEDS ORDERED: PENDING 1/2NSS+20mEq KCL IVF SCH (00:06)
[2022-01-12 00:19] LABS: Anion Gap 24 (3-11); BUN Creatinine Ratio 20.2 (10-20); Blood Urea Nitrogen 18 mg/dl (6-23); Calcium 9.1 mg/dl (8.5-10.1); Carbon Dioxide 11 mmol/L (21-32); Chloride 98 mmol/L (98-107); Est GFR (African American) 87.6 ml/min; Est GFR (Non-African American) 75.6 ml/min; Glucose 389 mg/dl (70-99(Fasting)); Magnesium 1.7 mg/dl (1.7-2.4); Phosphorus 2.5 mg/dl (2.5-4.9); Potassium 3.2 mmol/L (3.5-5.1); Sodium 133 mmol/L (136-145)
[2022-01-12] MEDS ORDERED: POTASSIUM CHLORIDE 20 MEQ in SODIUM CHLORIDE 0.45 % 1,000 ML IV SCH (01:00)
[2022-01-12] MEDS ORDERED: CARBOHYDRATES FOR HYPOGLYCEMIA PO PRN (01:00)
[2022-01-12] MEDS ORDERED: GLUCAGON FOR INJ 1 MG VIAL IM PRN (01:00)
[2022-01-12] MEDS ORDERED: Patient's HEIGHT &/or WEIGHT Needed SCH (01:00)
[2022-01-12] MEDS ORDERED: GLUCOSE 10 TAB/TUBE PO PRN (01:00)
[2022-01-12] MEDS ORDERED: DEXTROSE 50% 50 ML SYRINGE IV PRN (01:00)
[2022-01-12] MEDS ORDERED: GLUCOSE 40% GEL 15 GM TUBE PO PRN (01:00)
[2022-01-12] MEDS ORDERED: SODIUM CHLOR 0.45% + 20MEQ KCL 20 MEQ/1,000 ML BAG IV SCH (01:15)
[2022-01-12] MEDS: SODIUM CHLOR 0.45% + 20MEQ KCL 20 MEQ/1,000 ML BAG IV SCH ×2 (01:28→08:19)
[2022-01-12] MEDS: PENDING D5 1/2NS+20mEq KCL IVF SCH ×3 (01:32→06:08)
[2022-01-12] MEDS ORDERED: MoRPHine SULFATE 4 MG/ML 1 ML CARP\\VIAL IV STA (01:55)
[2022-01-12 03:14] LABS: Albumin Globulin Ratio 1.1 (0.9-2); Albumin Level 3.4 gm/dl (3.4-5.0); BUN Creatinine Ratio 20.5 (10-20); Bilirubin,Total 0.6 mg/dl (0.2-1.0); Calcium 8.4 mg/dl (8.5-10.1); Creatinine Clr Calc Pharmacy 115.2 ml/min; Est GFR (African American) 111.3 ml/min; Magnesium 1.7 mg/dl (1.7-2.4); Phosphorus 1.8 mg/dl (2.5-4.9); Total Protein 6.4 gm/dl (6.0-8.3)
[2022-01-12] MEDS ORDERED: ONDANSETRON INJ 2 MG/ML 2 ML VIAL ONE (04:17)
[2022-01-12] MEDS ORDERED: POTASSIUM CHLORIDE CRTAB 20 MEQ TABCR PO STA (05:13)
--- NOTE | 2022-01-12 05:13 | Billing Data ---
Date of Service January 12, 2022 Coding Level of Care Code 70935 Initial Inpt Care Lvl 3
[2022-01-12] MEDS: D5W AND 1/2NSS + 20MEQ KCL 20 MEQ/1,000 ML BAG IV SCH ×3 (05:35→14:19)
[2022-01-12] MEDS ORDERED: PROMETHAZINE HCL 25 MG TAB PO ONE (07:06)
[2022-01-12 07:30] LABS: BUN Creatinine Ratio 20.7 (10-20); Calcium 8.3 mg/dl (8.5-10.1); Est GFR (African American) 124.6 ml/min; Est GFR (Non-African American) 107.5 ml/min; Magnesium 1.5 mg/dl (1.7-2.4); Phosphorus 1.5 mg/dl (2.5-4.9); Potassium 2.8 mmol/L (3.5-5.1)
[2022-01-12] MEDS ORDERED: POTASSIUM PHOS 3 MMOL/1 ML INFUSION IV STA ×3 (07:41→17:54)
--- NOTE | 2022-01-12 07:47 | Ultrasound Report ---
US abdomen limited CLINICAL HISTORY: RUQ pain, elevated Tbili TECHNIQUE: Multiple real-time sonographic images of the right upper quadrant were obtained. Comparison: Comparison is made to CT abdomen pelvis 01/11/2022 FINDINGS: The liver is diffusely echogenic in appearance with poor ultrasound penetration, with normal contour, which is consistent with fatty infiltration. The liver measures 21 cm in length. No focal mass lesio ns are seen. No intrahepatic ductal dilatation is seen. No gallstones or sludge are identified wi thin the gallbladder. The gallbladder wall is not thickened. There is no pericholecystic fluid presen t. Rosas's sign cannot be assessed as the patient received pain medication. The common duct measures 0.4 cm in diameter at the level of the hepatic artery. The visualized portions of the pancreas appe ar normal. Pelviectasis is seen in the right kidney. There is an echogenic focus in the upper pole. No ascites or free fluid is seen in Leary's pouch. IMPRESSION: 1. Hepatic steatosis. 2. Echogenic focus in the right kidney corresponding to CT findings of pyelonephritis with possible phlegmon. ACT 112: Negative or not required by law. Electronically signed by: Matthew Chiu M.D. 01/12/2022 7:46 AM
[2022-01-12] MEDS ORDERED: POTASSIUM PHOSPHATE 15 MMOL in SODIUM CHLORIDE 0.9% 250 ML IV ONE (08:00)
[2022-01-12] MEDS ORDERED: PROMETHAZINE 12.5 MG/50.5 ML NSS IV ONE (08:02)
[2022-01-12 09:46] LABS: Estimated Average Glucose 206 mg/dl; Hemoglobin A1C 8.8 % (4.5-5.6)
[2022-01-12] MEDS: ENOXAPARIN INJ 40 MG/0.4 ML SYR SQ SCH (09:56)
[2022-01-12] MEDS: MAGNESIUM SULFATE / D5W 1 GM/100 ML BAG IV SCH ×2 (09:57→11:56)
[2022-01-12] MEDS: INSULIN ASPART PER UNIT SC SCH ×4 (10:36→21:14)
[2022-01-12 11:30] LABS: BUN Creatinine Ratio 15.5 (10-20); Calcium 8.3 mg/dl (8.5-10.1); Est GFR (African American) 124.6 ml/min; Est GFR (Non-African American) 107.5 ml/min; Magnesium 1.7 mg/dl (1.7-2.4); Phosphorus 2.7 mg/dl (2.5-4.9); Potassium 3.3 mmol/L (3.5-5.1)
[2022-01-12] MEDS ORDERED: LANTUS PER UNIT CHARGE SQ ONE (12:15)
[2022-01-12] MEDS: ONDANSETRON INJ 2 MG/ML 2 ML VIAL IV PRN (12:59)
[2022-01-12] MEDS ORDERED: hydrALAZINE HCL 20 MG/ML VIAL ONE (13:49)
--- NOTE | 2022-01-12 14:16 | Pharmacy Report ---
Pharmacy Glycemic Short Note 2 - Date of Service January 12, 2022 - Glycemic Short BSG Results (Last 24 hours): 01/11/22 01/11/22 01/11/22 18:13 18:23 21:51 Glucose 535 H* POC Glucose 531 H* 475 H* 01/11/22 01/11/22 01/12/22 22:56 23:35 00:55 Glucose 389 H* POC Glucose 411 H* 304 H* 01/12/22 01/12/22 01/12/22 02:03 02:26 02:26 Glucose 207 H Cancelled POC Glucose 230 H 01/12/22 01/12/22 01/12/22 03:03 04:03 05:11 Glucose POC Glucose 191 H 153 H 117 H 01/12/22 01/12/22 01/12/22 06:22 06:48 07:45 Glucose 235 H POC Glucose 200 H 236 H 01/12/22 01/12/22 01/12/22 08:48 09:50 10:47 Glucose 272 H POC Glucose 284 H 252 H 01/12/22 11:19 Glucose POC Glucose 285 H OUTPATIENT ANTIDIABETIC REGIMEN: * Tresiba 50 units SC HS * Humalog 22-30 SC TIDM (patient reports this dose on average) * Metformin 1000 mg PO BIDM * No longer takes Trulicity due to upset stomach * HbA1c = 8.8% (01/12/22) ASSESSMENT: * 51 yo F admitted overnight secondary to nausea and vomiting. Found to have pyelonephritis and be in diabetic ketoacidosis. Pharmacy has been consulted to assist with inpatient glycemic management. Patient is listed as a type 1 diabetic but also takes Metformin. A1c from today is elevated at 8.8% (up from 5.9% in August 2021). Patient admits to not checking blood glucose or taking her insulin recently. She is ordered a type 1 diabetic diet but is not eating secondary to nausea. * Initial DKA labs: VBG pH = 7.25, CO2 10, Anion gap 30, POC BSG 531 mg/dL. * Received 3 L NSS in ED and was started on insulin drip per protocol. * Started on 1/2 NSS + 20 mEq KCl at 250 mL/hr for a partial bag * BSG improved to goal range quickly so fluids switched to D5 1/2 NSS + 20 mEq KCl at 250 mL/hr * Most recent labs (1047): VBG pH > 7.30, CO2 19, Anion gap 8, POC BSG 285 mg/dL. * Gave 35 units of Lantus at lunchtime (30% reduction in home dose given poor oral intake) * Continue insulin gtt and overlap with Lantus for at least two hours. Ideally, want insulin gtt running less than 2 units/hr when discontinued. * Novolog per calculator for now. Once gtt d/c, will order ACHS checks based on weight/stress of 3. Adding overnight checks for first night. PLAN FOR INPATIENT GLYCEMIC CONTROL: * Hold outpatient oral diabetes medications * Basal insulin * Lantus 35 units SC x 1 * Bolus insulin * NovoLog per scale ACHS or Q6hrs while NPO * Goal Range: Low 110 mg/dL - High 140 mg/dL * Correction Factor: 15 mg/dL/unit * Nutritional / Prandial insulin per carb ratio of 1 unit per 5 grams CHO consumed
[2022-01-12] MEDS: LACTATED RINGER'S 1,000 ML IV SCH (15:41)
[2022-01-12 15:48] LABS: BUN Creatinine Ratio 13.5 (10-20); Calcium 8.3 mg/dl (8.5-10.1); Creatinine Clr Calc Pharmacy 161.7 ml/min; Est GFR (African American) 129.1 ml/min; Est GFR (Non-African American) 111.4 ml/min; Potassium 2.7 mmol/L (3.5-5.1)
[2022-01-12 16:03] LABS: Magnesium 1.8 mg/dl (1.7-2.4); Phosphorus 1.4 mg/dl (2.5-4.9)
--- NOTE | 2022-01-12 16:20 | Hospitalist Progress Note ---
Date of Service January 12, 2022 Assessment & Plan (1) DKA (diabetic ketoacidosis): Plan: -Patient has been a uncontrolled diabetic in the past with HgA1C between 8.7-12 .5 from [id number]. -Patient has not been taking her insulin and has not been checking her sugars r ecently -Presented/hospitalized with DKA, treated with insulin gtt, gap closed late this AM/early afternoon and pt was converted to SQ Lantus/Log -tin flipper consulted, appreciate assistance (2) Pyelonephritis of right kidney: Plan: -CT ab/pelvis findings suggest R pyelonephritics and possible associated R pyelitis and cystitis. -Cr was normal 0.94 -Will continue ceftriaxone IV 2g q24 hours -UA showed 3+ glucose, 4+ketones, 3+blood, 10-30 WBC, 10-20 epithelial cells -urine culture pending (3) Electrolyte abnormality: Plan: -Replacement ordered for phosphorous, potassium, and magnesium -Repeat labs ordered for AM (4) Diabetes type 1, uncontrolled: Plan: -Patient has history of uncontrolled diabetes with high HgA1C, ulcers, osteomyelitis -Will have patient talk with placement specialist to discuss further management (5) RUQ pain: Plan: -Total bilirubin 1.4 -AST, ALT, Lipase, Alk phos WNL -CT ab/pelvis was negative for any gallbladder pathology -RUQ u/s-hepatic steatosis and echogenic focus in R kidney c/w pyelo (6) Diabetic foot ulcers: Plan: -Wound care nurse consult -Wound care daily (7) Pseudohyponatremia: Plan: -Na 129 on labs but when corrected for hyperglycemia = 136 -No treatment needed at this time, continue to monitor in AM labs (8) Dyslipidemia: Plan: -Holding home statin. Can continue on discharge (9) Lumbar radiculopathy: Plan: -holding home oxycodone. Will considering restarting once DKA resolves. Plan As above. Added Hydralazine PRN sbp>170 or dbp>100 for accelerated hypertension, takes no BP meds at home and does not carry a documented h/o hypertension. Will monitor-even w/o htn, would benefit from renal protection of adding an JENNI/ARB. Plan to be d/w Dr. Dias. Admission and Anticipated Discharge Date Admission Date: January 11, 2022 Subjective Patient seen on daily rounds this morning. She was hospitalized due to acute DKA which was felt to be driven by R-sided pyelonephritis. This morning, she admits to having n/v but denies diarrhea, abd pain, or gu symptoms. Denies fever/chills, chest pain or dyspnea. Review of Systems Review of Systems: All systems reviewed and are unremarkable except as noted in HPI and below. Denies fever, chills, fatigue, headache, nasal congestion, sore throat, cough, chest pain, shortness of breath, palpitations, orthopnea, PND, abdominal pain, diarrhea, constipation, dysuria, hematuria, frequency, back pain, joint pain or swelling, easy bruising or bleeding, skin lesions or rashes. Physical Exam Physical Exam: GENERAL: 51 yo Wd/Wn WF. NAD. LUNGS: Clear to auscultation bilaterally. No W/R/R. CARDIOVASCULAR: Regular rate and rhythm. No M/G/R. No JVD. ABDOMEN: Soft, non-tender and non-distended. BS normoactive x 4 quad. EXTREMITIES: No edema. Non-tender. Peripheral pulses +2/4. NEUROLOGIC: A&O x3. Nonfocal PSYCHIATRIC: Cooperative. Appropriate mood and affect. SKIN: Warm, dry, intact. No rashes or lesions. Results & Data Results & Data ([facility]) Vital Signs (Past 12 Hours) Vital Signs Pulse Pulse Resp BP Pulse Ox O2 Del Method 01/12/22 15:00 103 H 16 96 Room Air 01/12/22 14:17 187/96 H 01/12/22 13:30 106 H 16 01/12/22 13:30 170/100 H 01/12/22 13:20 204/114 H 01/12/22 13:20 108 H 21 01/12/22 13:00 96 01/12/22 13:00 189/109 H 01/12/22 12:44 99 01/12/22 12:43 194/118 H 01/12/22 10:57 127 H 23 01/12/22 10:31 110 H 15 01/12/22 07:00 99 H 19 01/12/22 06:30 116 H 01/12/22 06:00 115 H 30 H 01/12/22 05:30 106 H 25 H 01/12/22 12:44 114 H 20 194/118 H 100 Room Air 01/12/22 06:14 120 H 24 01/12/22 04:37 118 H 20 122/96 98 Room Air Laboratory Results 01/11/22 18:23 01/12/22 15:03 PG Care Time/CCT Total # of Minutes Spent Total Time Spent with Patient: Total time spent is greater than 50% in coordination of care (as documented) at patient's floor/unit and/or counseling patient: Coding Level of Care Code 32217 Subseq Hosp Care Lvl 3 Diagnoses DKA (diabetic ketoacidosis) E11.10 Pyelonephritis of right kidney N12 Electrolyte abnormality E87.8 Diabetes type 1, uncontrolled E10.65 RUQ pain R10.11 Diabetic foot ulcers E11.621; L97.509 Pseudohyponatremia R79.89 Dyslipidemia E78.5 Lumbar radiculopathy M54.16
[2022-01-12] MEDS ORDERED: POTASSIUM PHOSPHATE 30 MMOL in SODIUM CHLORIDE 0.9% 500 ML IV ONE (16:30)
[2022-01-12] MEDS: PROMETHAZINE HCL 12.5 MG in SODIUM CHLORIDE 0.9% 50 ML IV PRN (16:37)
[2022-01-12] MEDS: POTASSIUM CHLORIDE CRTAB 20 MEQ TABCR PO SCH ×2 (17:22→17:32)
[2022-01-12] MEDS ORDERED: POTASSIUM CHLORIDE 10 MEQ / 100ML WTR IV STA (17:54)
[2022-01-12] MEDS: POTASSIUM CHLORIDE / WTR 10 MEQ/100 ML PLCT IV SCH ×3 (18:43→21:15)
[2022-01-12] MEDS: hydrALAZINE HCL 20 MG/ML VIAL IV PRN (19:39)
[2022-01-12] MEDS: cefTRIAXone SODIUM 2,000 MG in DEXTROSE 5% 50 ML IV SCH (21:15)
[2022-01-12 22:00] LABS: BUN Creatinine Ratio 11.8 (10-20); Calcium 8.7 mg/dl (8.5-10.1); Creatinine Clr Calc Pharmacy 164.9 ml/min; Est GFR (African American) 129.9 ml/min; Est GFR (Non-African American) 112.1 ml/min; Phosphorus 2.4 mg/dl (2.5-4.9); Potassium 3.5 mmol/L (3.5-5.1)
[2022-01-12] MEDS ORDERED: METOPROLOL TARTRATE 1 MG/ML VIAL IV STA (22:37)
[2022-01-13] MEDS: INSULIN ASPART PER UNIT SC SCH ×6 (00:14→21:38)
[2022-01-13] MEDS: PROMETHAZINE HCL 12.5 MG in SODIUM CHLORIDE 0.9% 50 ML IV PRN (00:14)
[2022-01-13] MEDS: LACTATED RINGER'S 1,000 ML IV SCH ×2 (01:41→11:49)
[2022-01-13] MEDS: hydrALAZINE HCL 20 MG/ML VIAL IV PRN ×3 (03:34→17:52)
[2022-01-13] MEDS ORDERED: HYDROmorphone INJ 0.5 MG/0.5 ML SYR IV STA (03:35)
[2022-01-13] MEDS: ONDANSETRON INJ 2 MG/ML 2 ML VIAL IV PRN (04:10)
[2022-01-13 06:09] LABS: Basophils # (auto) 0.02 K/uL (0-0.2); Basophils % (auto) 0.2 %; Eosinophils # (auto) 0.01 K/uL (0-0.50); Eosinophils % (auto) 0.1 %; Hematocrit (blood only) 32.5 % (34.1-44.9); Hemoglobin 11.2 g/dl (12.0-16.0); Immature Granulocytes # (auto) 0.06 K/uL (0.00-0.02); Immature Granulocytes % (auto) 0.7 %; Lymphocytes # (auto) 0.44 K/uL (1.2-3.4); Lymphocytes % (auto) 5.3 %; Mean Corpuscular Hemoglobin 29.6 pg (25.0-34.0); Mean Corpuscular Hgb Conc 34.5 g/dL (32.0-36.0); Mean Platelet Volume 9.8 fL (9.4-12.3); Monocytes # (auto) 0.84 K/uL (0.24-0.82); Monocytes % (auto) 10.1 %; Neutrophils # (auto) 6.96 K/uL (1.4-6.5); Neutrophils % (auto) 83.6 %; Platelet Count 119 K/uL (130-400); RDW Coefficient of Variation 14.2 % (11.5-14.5); RDW Standard Deviation 44.8 fL (36.4-46.3); Red Blood Count 3.78 M/uL (3.93-5.22); White Blood Count 8.33 K/ul (4.8-10.8)
[2022-01-13 06:31] LABS: BUN Creatinine Ratio 12.2 (10-20); Calcium 8.6 mg/dl (8.5-10.1); Creatinine Clr Calc Pharmacy 171.6 ml/min; Est GFR (African American) 131.7 ml/min; Est GFR (Non-African American) 113.6 ml/min
[2022-01-13] MEDS: ENOXAPARIN INJ 40 MG/0.4 ML SYR SQ SCH (08:07)
[2022-01-13] MEDS ORDERED: METOPROLOL TARTRATE 1 MG/ML VIAL IV ONE (08:11)
[2022-01-13] MEDS ORDERED: POTASSIUM PHOS 3 MMOL/1 ML INFUSION IV STA (08:35)
[2022-01-13] MEDS ORDERED: POTASSIUM PHOSPHATE 15 MMOL in SODIUM CHLORIDE 0.9% 250 ML IV ONE (09:00)
[2022-01-13] MEDS ORDERED: LANTUS PER UNIT CHARGE SQ SCH ×2 (09:00→21:00)
[2022-01-13] MEDS: POTASSIUM CHLORIDE / WTR 10 MEQ/100 ML PLCT IV SCH ×2 (09:18→10:27)
[2022-01-13] MEDS: METOPROLOL TARTRATE 1 MG/ML VIAL IV PRN ×2 (11:55→17:24)
[2022-01-13] MEDS ORDERED: LANTUS PER UNIT CHARGE SQ STA (11:57)
--- NOTE | 2022-01-13 12:13 | Pharmacy Report ---
Pharmacy Glycemic Short Note 2 - Date of Service January 13, 2022 - Glycemic Short BSG Results (Last 24 hours): 01/12/22 01/12/22 01/12/22 12:13 13:03 14:10 Glucose POC Glucose 291 H 285 H 256 H 01/12/22 01/12/22 01/12/22 15:03 15:14 16:13 Glucose 269 H POC Glucose 263 H 214 H 01/12/22 01/12/22 01/12/22 17:08 18:02 20:35 Glucose POC Glucose 211 H 186 H 276 H 01/12/22 01/12/22 01/13/22 21:07 23:54 03:50 Glucose 276 H POC Glucose 214 H 193 H 01/13/22 01/13/22 01/13/22 05:27 07:24 11:40 Glucose 205 H POC Glucose 220 H 247 H OUTPATIENT ANTIDIABETIC REGIMEN: * Tresiba 50 units SC HS * Humalog 22-30 SC TIDM (patient reports this dose on average) * Metformin 1000 mg PO BIDM * No longer takes Trulicity due to upset stomach * HbA1c = 8.8% (01/12/22) ASSESSMENT: 01/13: * DKA resolved - converted to SQ yesterday evening. BSGs remain elevated [phone]/dL. Patient received 35 units of SQ basal yesterday (in addition to drip) and 10 units of Novolog. * Diet ordered, however still with no documented intake. Continues on IV antibiotics. * Lantus 25 units this AM (with plan for BID dosing), however given continued elevation of BSGs, will supplement with 10 additional units now for 35 units. Plan for an HS scale (03/29/35 units pending BSG). * Novolog parameters unchanged today, as patient receiving correctional insulin only at this point. 01/12 * 51 yo F admitted overnight secondary to nausea and vomiting. Found to have pyelonephritis and be in diabetic ketoacidosis. Pharmacy has been consulted to assist with inpatient glycemic management. Patient is listed as a type 1 diabetic but also takes Metformin. A1c from today is elevated at 8.8% (up from 5.9% in August 2021). Patient admits to not checking blood glucose or taking her insulin recently. She is ordered a type 1 diabetic diet but is not eating secondary to nausea. * Initial DKA labs: VBG pH = 7.25, CO2 10, Anion gap 30, POC BSG 531 mg/dL. * Received 3 L NSS in ED and was started on insulin drip per protocol. * Started on 1/2 NSS + 20 mEq KCl at 250 mL/hr for a partial bag * BSG improved to goal range quickly so fluids switched to D5 1/2 NSS + 20 m Eq KCl at 250 mL/hr * Most recent labs (1047): VBG pH > 7.30, CO2 19, Anion gap 8, POC BSG 285 mg/dL. * Gave 35 units of Lantus at lunchtime (30% reduction in home dose given poor oral intake) * Continue insulin gtt and overlap with Lantus for at least two hours. Ideally, want insulin gtt running less than 2 units/hr when discontinued. * Novolog per calculator for now. Once gtt d/c, will order ACHS checks based on weight/stress of 3. Adding overnight checks for first night. PLAN FOR INPATIENT GLYCEMIC CONTROL: * Hold outpatient oral diabetes medications * Basal insulin * Lantus 35 units AM + HS scale * Bolus insulin * NovoLog per scale ACHS or Q6hrs while NPO * Goal Range: Low 110 mg/dL - High 140 mg/dL * Correction Factor: 15 mg/dL/unit * Nutritional / Prandial insulin per carb ratio of 1 unit per 5 grams CHO consumed
[2022-01-13] MEDS: lisinopril 10 MG TAB PO SCH (14:52)
[2022-01-13] MEDS: METOCLOPRAMIDE HCL INJ 5 MG/ML 2 ML VIAL IV PRN (14:52)
--- NOTE | 2022-01-13 15:31 | Hospitalist Progress Note ---
Date of Service January 13, 2022 Assessment & Plan (1) Nausea and vomiting: Plan: - Intractable - known pyelo but this is being treated - Suspicious given her epigastric fullness and uncontrolled IDDM history that she may also have gastroparesis - Start Reglan 10mg IV q6h prn for now and transition to 5mg AC if demonstrates improvement - Should be referred for gastric emptying study as outpatient - Add PPI (2) Pyelonephritis of right kidney: Plan: -CT ab/pelvis findings suggest R pyelonephritics and possible associated R pyelitis and cystitis. -Cr was normal 0.94 -Will continue ceftriaxone IV 2g q24 hours -UA showed 3+ glucose, 4+ketones, 3+blood, 10-30 WBC, 10-20 epithelial cells -urine culture prelim GNB-await final culture and tailor abx accordingly (3) DKA (diabetic ketoacidosis): Plan: -Patient has been a uncontrolled diabetic in the past with HgA1C between 8.7- 12.5 from 9320-1729. -Patient has not been taking her insulin and has not been checking her sugars recently -Presented/hospitalized with DKA, treated with insulin gtt, gap closed 01/12 and pt was converted to SQ Lantus/Log -ems educator consulted, appreciate assistance THIS ISSUE HAS RESOLVED (4) Hypertensive urgency: Plan: - Only takes Furosemide at home for HTN, no other meds - Given IDDM, will start on JENNI for renal protection + hypertension - Can continue PRN Hydralazine and PRN Metoprolol IV for hypertensive urgency (5) Electrolyte abnormality: Plan: -Replacement ordered for phosphorous, potassium, and magnesium -Repeat labs ordered for AM (6) Diabetes type 1, uncontrolled: Plan: -Patient has history of uncontrolled diabetes with high HgA1C, ulcers, osteomyelitis -Will have patient talk with agricultural extension educator to discuss further management (7) RUQ pain: Plan: -Total bilirubin 1.4 -AST, ALT, Lipase, Alk phos WNL -CT ab/pelvis was negative for any gallbladder pathology -RUQ u/s-hepatic steatosis and echogenic focus in R kidney c/w pyelo (8) Diabetic foot ulcers: Plan: -Wound care nurse consult -Wound care daily (9) Pseudohyponatremia: Plan: -Na 129 on labs but when corrected for hyperglycemia = 136 -No treatment needed at this time, continue to monitor in AM labs (10) Dyslipidemia: Plan: -Holding home statin. Can continue on discharge (11) Lumbar radiculopathy: Plan: -holding home oxycodone. Will considering restarting once DKA resolves. Plan As above. Hopefully be able to discharge by tomorrow if n/v improves/resolved and electrolytes normalize. Plan to be d/w Dr. Dias. Admission and Anticipated Discharge Date Admission Date: January 11, 2022 Subjective Patient seen on daily rounds this morning. She was hospitalized due to acute DKA which was felt to be driven by R-sided pyelonephritis. She continues to have issues with hypertensive urgency without significant response to PRN Hydralazine. Pt reports ongoing intermittent n/v and some epigastric fullness. She has never been evaluated for gastroparesis. She remains on antibiotics for her UTI/Pyelo. She denies chest pain, dyspnea, fever, chills or gu symptoms. Review of Systems Review of Systems: All systems reviewed and are unremarkable except as noted in HPI and below. Denies fever, chills, fatigue, headache, nasal congestion, sore throat, cough, chest pain, shortness of breath, palpitations, orthopnea, PND, abdominal pain, diarrhea, constipation, dysuria, hematuria, frequency, back pain, joint pain or swelling, easy bruising or bleeding, skin lesions or rashes. Physical Exam Physical Exam: GENERAL: 51 yo Wd/Wn WF. NAD. LUNGS: Clear to auscultation bilaterally. No W/R/R. CARDIOVASCULAR: Regular rate and rhythm. No M/G/R. No JVD. ABDOMEN: Soft, non-tender and non-distended. BS normoactive x 4 quad. EXTREMITIES: No edema. Non-tender. Peripheral pulses +2/4. NEUROLOGIC: A&O x3. Nonfocal PSYCHIATRIC: Cooperative. Appropriate mood and affect. SKIN: Warm, dry, intact. No rashes or lesions. Results & Data Results & Data ([facility]) Vital Signs (Past 12 Hours) Vital Signs Temp Pulse Pulse Resp BP BP BP 01/13/22 15:00 108 H 19 01/13/22 14:56 176/97 H 01/13/22 14:08 109 H 01/13/22 14:00 97 H 14 01/13/22 13:00 97 H 20 08/11/22 12:00 105 H 25 H 01/13/22 15:29 36.8 C 01/13/22 10:42 117 H 01/13/22 10:13 01/13/22 11:55 113 H 179/99 H 01/13/22 08:15 102 H 207/115 H 01/13/22 07:09 36.8 C 108 H 22 207/115 H 01/13/22 04:38 104 H 170/115 H 01/13/22 04:19 197/106 H 01/13/22 03:37 37.1 C 113 H 20 211/104 H Pulse Ox O2 Del Method 01/13/22 15:00 96 01/13/22 14:56 01/13/22 14:08 01/13/22 14:00 01/13/22 13:00 01/13/22 12:00 01/13/22 15:29 01/13/22 10:42 01/13/22 10:13 Room Air 01/13/22 11:55 01/13/22 08:15 01/13/22 07:09 99 Room Air 01/13/22 04:38 01/13/22 04:19 01/13/22 03:37 98 Laboratory Results 01/13/22 05:27 01/13/22 05:27 PG Care Time/CCT Total # of Minutes Spent Total Time Spent with Patient: Total time spent is greater than 50% in coordination of care (as documented) at patient's floor/unit and/or counseling patient: Coding Level of Care Code 72649 Subseq Hosp Care Lvl 3 Diagnoses Nausea and vomiting R11.2 Pyelonephritis of right kidney N12 DKA (diabetic ketoacidosis) E11.10 Hypertensive urgency I16.0 Electrolyte abnormality E87.8 Diabetes type 1, uncontrolled E10.65 RUQ pain R10.11 Diabetic foot ulcers E11.621; L97.509 Pseudohyponatremia R79.89 Dyslipidemia E78.5 Lumbar radiculopathy M54.16
[2022-01-13] MEDS: PANTOprazole 40 MG TAB PO SCH (17:31)
[2022-01-13] MEDS: cefTRIAXone SODIUM 2,000 MG in DEXTROSE 5% 50 ML IV SCH (21:38)
--- NOTE | 2022-01-13 22:49 | Electrocardiogram Report ---
Test Reason : Blood Pressure : / mmHG Vent. Rate : 128 BPM Atrial Rate : 128 BPM P-R Int : 136 ms QRS Dur : 084 ms QT Int : 314 ms P-R-T Axes : 076 014 045 degrees QTc Int : 458 ms Sinus tachycardia Biatrial enlargement Left ventricular hypertrophy Abnormal ECG When compared with ECG of 21-APR-2016 17:37, No significant change was found Confirmed by Joshua Rod ([id number]) on 01/13/2022 10:49:00 PM Referred By: Priscilla Lewis Confirmed By:Joshua Rod
[2022-01-13] MEDS ORDERED: MELATONIN 3 MG TAB PO PRN (23:46)
[2022-01-14] MEDS: hydrALAZINE HCL 20 MG/ML VIAL IV PRN ×3 (00:06→15:39)
[2022-01-14] MEDS: ONDANSETRON INJ 2 MG/ML 2 ML VIAL IV PRN (02:37)
[2022-01-14] MEDS: ENOXAPARIN INJ 40 MG/0.4 ML SYR SQ SCH (08:07)
[2022-01-14] MEDS: METOCLOPRAMIDE HCL INJ 5 MG/ML 2 ML VIAL IV PRN ×2 (08:07→16:43)
[2022-01-14] MEDS ORDERED: PANTOprazole 40 MG TAB PO SCH (09:00)
[2022-01-14] MEDS ORDERED: LANTUS PER UNIT CHARGE SQ SCH (09:00)
[2022-01-14] MEDS: INSULIN ASPART PER UNIT SC SCH ×3 (09:28→17:27)
[2022-01-14 10:02] LABS: BUN Creatinine Ratio 20.5 (10-20); Calcium 8.6 mg/dl (8.5-10.1); Creatinine Clr Calc Pharmacy 191.2 ml/min; Est GFR (African American) 136.4 ml/min; Est GFR (Non-African American) 117.7 ml/min; Magnesium 1.5 mg/dl (1.7-2.4); Phosphorus 2.4 mg/dl (2.5-4.9); Potassium 2.7 mmol/L (3.5-5.1)
[2022-01-14] MEDS: lisinopril 10 MG TAB PO SCH (10:10)
--- NOTE | 2022-01-14 10:31 | Pharmacy Report ---
Pharmacy Glycemic Short Note 2 - Date of Service January 14, 2022 - Glycemic Short BSG Results (Last 24 hours): 01/13/22 01/13/22 01/13/22 11:40 16:09 20:38 Glucose POC Glucose 247 H 239 H 261 H 01/14/22 01/14/22 07:11 09:04 Glucose 229 H POC Glucose 202 H OUTPATIENT ANTIDIABETIC REGIMEN: * Tresiba 50 units SC HS * Humalog 22-30 SC TIDM (patient reports this dose on average) * Metformin 1000 mg PO BIDM * No longer takes Trulicity due to upset stomach * HbA1c = 8.8% (01/12/22) ASSESSMENT: 01/14: * Patient received total of 91 units of insulin yesterday, of which 60 units were basal * Fasting BSG 202 mg/dL - will continue with scale for Lantus and target 60-65 units daily (split into BID dosing) * PO intake poorer yesterday, BSGs elevated throughout the day in the 200s - will tighten CF at lunch if they remain elevated today * N/V reported in nursing notes - will not be overly aggressive when making changes today 01/13: * DKA resolved - converted to SQ yesterday evening. BSGs remain elevated [phone]/dL. Patient received 35 units of SQ basal yesterday (in addition to drip) and 10 units of Novolog. * Diet ordered, however still with no documented intake. Continues on IV antibiotics. * Lantus 25 units this AM (with plan for BID dosing), however given continued elevation of BSGs, will supplement with 10 additional units now for 35 units. Plan for an HS scale (03/29/35 units pending BSG). * Novolog parameters unchanged today, as patient receiving correctional insulin only at this point. 01/12 * 51 yo F admitted overnight secondary to nausea and vomiting. Found to have pyelonephritis and be in diabetic ketoacidosis. Pharmacy has been consulted to assist with inpatient glycemic management. Patient is listed as a type 1 diabetic but also takes Metformin. A1c from today is elevated at 8.8% (up from 5.9% in August 2021). Patient admits to not checking blood glucose or taking her insulin recently. She is ordered a type 1 diabetic diet but is not eating secondary to nausea. * Initial DKA labs: VBG pH = 7.25, CO2 10, Anion gap 30, POC BSG 531 mg/dL. * Received 3 L NSS in ED and was started on insulin drip per protocol. * Started on 1/2 NSS + 20 mEq KCl at 250 mL/hr for a partial bag * BSG improved to goal range quickly so fluids switched to D5 1/2 NSS + 20 mEq KCl at 250 mL/hr * Most recent labs (1047): VBG pH > 7.30, CO2 19, Anion gap 8, POC BSG 285 mg/dL. * Gave 35 units of Lantus at lunchtime (30% reduction in home dose given poor oral intake) * Continue insulin gtt and overlap with Lantus for at least two hours. Ideally, want insulin gtt running less than 2 units/hr when discontinued. * Novolog per calculator for now. Once gtt d/c, will order ACHS checks based on weight/stress of 3. Adding overnight checks for first night. PLAN FOR INPATIENT GLYCEMIC CONTROL: * Hold outpatient oral diabetes medications * Basal insulin * Lantus 35 units AM + 25-30 units HS * Bolus insulin * NovoLog per scale ACHS or Q6hrs while NPO * Goal Range: Low 110 mg/dL - High 140 mg/dL * Correction Factor: 15 mg/dL/unit * Nutritional / Prandial insulin per carb ratio of 1 unit per 5 grams CHO consumed
[2022-01-14] MEDS: MAGNESIUM SULFATE / D5W 1 GM/100 ML BAG IV SCH ×2 (10:53→12:37)
[2022-01-14] MEDS: POTASSIUM CHLORIDE / WTR 10 MEQ/100 ML PLCT IV SCH ×3 (10:56→13:36)
[2022-01-14] MEDS ORDERED: cefTRIAXone SODIUM 2,000 MG in DEXTROSE 5% 50 ML IV SCH (16:00)
--- NOTE | 2022-01-14 16:10 | Discharge Summary ---
Date of Service January 14, 2022 Admission HPI Per Admitting Provider Patient is a 51 y/o female with PMHx of DM type 1 (uncontrolled), HLD, charcot's joint of foot, multiple diabetic foot ulcers with previous osteomyelitis, presents today with N/V since Monday. she states that she has been vomiting every hour and not been able to eat anything. She states that she is currently taking metformin, Humalog and SSI but has not taken anything since Monday. She has not recently checked her sugars since Monday. She also c/o R sided ab pain that started around the same time as the N/V on Monday. She also states that she saw ortho last for sciatic pain and was started on 1 oxycodone every 6 hours. On top of the oxycodone, she is also taking 4 Advil every 6 hours but the pain still persists. She states that has some SOB recently. She denies any dysuria, urinary frequency or urgency, fevers, chills, or new infections. Principal Diagnosis 1. DKA 2. UTI w/ pyelo 3. Electrolyte disorder 4. N/V - suspect gastroparesis Discharge Exam GENERAL: 51 yo Wd/Wn WF. NAD. LUNGS: Clear to auscultation bilaterally. No W/R/R. CARDIOVASCULAR: Regular rate and rhythm. No M/G/R. No JVD. ABDOMEN: Soft, non-tender and non-distended. BS normoactive x 4 quad. EXTREMITIES: No edema. Non-tender. Peripheral pulses +2/4. NEUROLOGIC: A&O x3. Nonfocal PSYCHIATRIC: Cooperative. Appropriate mood and affect. SKIN: Warm, dry, intact. No rashes or lesions. Discharge Data Allergies Allergy/AdvReac Type Severity Reaction Status Date / Time No Known Allergies Allergy Unknown Verified 01/11/22 20:20 Consultations 01/11/22 20:07 ED Decision to Admit Stat Ordered Studies Abdomen/Pelvis CT 01/11/22 18:47 CT OF THE ABDOMEN AND PELVIS WITH CONTRAST CLINICAL HISTORY: Right lower quadrant abdominal pain. COMPARISON STUDY: None. TECHNIQUE: Following IV administration of 91 mL of Optiray, axial images of the abdomen and pelvis were obtained from the lung bases to the proximal femurs. Images were reviewed in the axial, sagittal, and coronal planes. IV contrast was administered without complication. Automated exposure control was utilized for the study. A dose lowering technique was utilized adhering to the principles of ALARA. CT DOSE: 2125.15 mGy.cm FINDINGS: Lung bases are unremarkable. No pneumatosis, free air or portal venous gas is present. This exam is mildly compromised by motion artifact. Mild splenomegaly is noted. There are no hepatic lesions. No biliary or pancreatic ductal dilatation is noted. Subcentimeter left adrenal nodule is indeterminate but probably benign. Right adrenal gland, pancreas and left kidney are normal. There is no hydronephrosis. No urinary calculi are identified. There is mild bladder wall thickening. There are several hypoenhancing foci within the right kidney with mild right perinephric stranding. These include a 2.3 cm hypodense focus within the upper pole of the right kidney without rim enhancement. This may reflect phlegmon. There is mild urothelial thickening of the right collecting system and possibly the right ureter. Colonic diverticulosis is noted without evidence for acute diverticulitis. There is no evidence for a bowel obstruction. The caliber and wall thickness of small and large bowel are normal. The appendix is normal. There are small fat-containing ventral and umbilical hernias. Right hip arthroplasty is noted. No acute fracture or suspicious lesion is identified within visualized skeletal structures. There is no lymphadenopathy. IMPRESSION: 1. Findings suggestive of right pyelonephritis and possible associated right pyelitis and cystitis. This could be correlated with urinalysis. A few hypoenhancing foci within the right kidney measure up to 2.3 cm and may reflect phlegmon. No well-defined rim-enhancing fluid collection to suggest abscess. A follow-up contrast enhanced CT in 3 months to ensure resolution is recommended. 2. No bowel obstruction. No bowel wall thickening. Colonic diverticulosis without evidence for acute diverticulitis. 3. Mild splenomegaly. ACT 112: Negative or not required by law. Electronically signed by: Xiang Lewis M.D. 01/11/2022 9:29 PM Abdomen Ultrasound 01/11/22 22:49 US abdomen limited CLINICAL HISTORY: RUQ pain, elevated Tbili TECHNIQUE: Multiple real-time sonographic images of the right upper quadrant were obtained. Comparison: Comparison is made to CT abdomen pelvis 01/11/2022 FINDINGS: The liver is diffusely echogenic in appearance with poor ultrasound penetration, with normal contour, which is consistent with fatty infiltration. The liver measures 21 cm in length. No focal mass lesions are seen. No intrahepatic ductal dilatation is seen. No gallstones or sludge are identified within the gallbladder. The gallbladder wall is not thickened. There is no pericholecystic fluid present. Rosas's sign cannot be assessed as the patient received pain medication. The common duct measures 0.4 cm in diameter at the level of the hepatic artery. The visualized portions of the pancreas appear normal. Pelviectasis is seen in the right kidney. There is an echogenic focus in the upper pole. No ascites or free fluid is seen in Leary's pouch. IMPRESSION: 1. Hepatic steatosis. 2. Echogenic focus in the right kidney corresponding to CT findings of pyelonephritis with possible phlegmon. ACT 112: Negative or not required by law. Electronically signed by: Matthew Chiu M.D. 01/12/2022 7:46 AM Hospital Course (1) Nausea and vomiting: - Intractable - known pyelo but this is being treated - Suspicious given her epigastric fullness and uncontrolled IDDM history that she may also have gastroparesis - Started Reglan 10mg IV q6h prn which she feels has provided her relief - Should be referred for gastric emptying study as outpatient which will defer to PCP to arrange - Added PPI - Will rx Reglan 5mg AC and HS upon d/c and Protonix 40mg daily (2) Pyelonephritis of right kidney: -CT ab/pelvis findings suggest R pyelonephritics and possible associated R pyelitis and cystitis. -Cr was normal 0.94 -Will continue ceftriaxone IV 2g q24 hours -UA showed 3+ glucose, 4+ketones, 3+blood, 10-30 WBC, 10-20 epithelial cells -urine culture with 20,000 colonies klebsiella, sensitive to rocephin, will transition to cefdinir 300mg BID upon d/c x 6 more days for total of 10 days of therapy (3) DKA (diabetic ketoacidosis): -Patient has been a uncontrolled diabetic in the past with HgA1C between 8.7- 12.5 from 0745-2720. -Patient has not been taking her insulin and has not been checking her sugars recently -Presented/hospitalized with DKA, treated with insulin gtt, gap closed 01/12 and pt was converted to SQ Lantus/Log -inclusion paraeducator consulted, appreciate assistance THIS ISSUE HAS RESOLVED (4) Hypertensive urgency: - Claims that she takes Furosemide at home for HTN, no other meds - Given IDDM, will started on JENNI for renal protection + hypertension - Given Hydralazine and PRN Metoprolol IV for hypertensive urgency - Increased Lisinopril to 20mg daily for added BP control, needs to avoid salt and caffeine - Follow up with PCP who can adjust med regimen to tighten BP control if needed - Changed Lasix to 20mg to take as needed for edema as she carries no h/o CHF and given her electrolyte derangements, would avoid high dose daily use (5) Electrolyte abnormality: -Replacement ordered for phosphorous, potassium, and magnesium -Repeat labs this morning demonstrated ongoing low potassium and magnesium -additional replacement of K and mag ordered -continue replacement at home, rx provided for mag and potassium (6) Diabetes type 1, uncontrolled: -Patient has history of uncontrolled diabetes with high HgA1C, ulcers, osteomyelitis -hematology nurse educator consulted--appreciate assistance (7) RUQ pain: -Total bilirubin 1.4 -AST, ALT, Lipase, Alk phos WNL -CT ab/pelvis was negative for any gallbladder pathology -RUQ u/s-hepatic steatosis and echogenic focus in R kidney c/w pyelo (8) Diabetic foot ulcers: -Wound care nurse consult -Wound care daily (9) Pseudohyponatremia: -Na 129 on labs but when corrected for hyperglycemia = 136 -stable (10) Dyslipidemia: -resume statin therapy (11) Lumbar radiculopathy: -can continue oxyIR prn as prescribed Plan Plan to discharge home today after dose of Rocephin this afternoon. Her electrolytes improved after replacement this morning, repeat potassium 2.9, will replace with another 40 meq of Potassium chloride prior to d/c and she can take an additional 20meq tonight before bed tonight and continue daily supplementation. Close pcp follow up is going to be crucial within 1 week of discharge given her multiple issues. Plan has been d/w Dr. Dias who is in agreement. Total Time Total Time Spent Total Time Spent (In Minutes): >30 minutes Discharge Plan Discharge Items Patient Disposition: Home - Self-Care Reason For Visit: DKA Discharge Diagnosis: diabetic ketoacidosis urinary tract infection high blood pressure Activity: Resume your previous activity Non-emergency contact: Primary Care Provider Call non-emergency contact if: you have any medication questions Follow-up/Referrals: Priscilla Lewis MD [Primary Care Provider] - Diet: Carb Count or DM1 and Low Sodium (2gm) Addtl Attending Provider Instructions: You were hospitalized due to diabetic ketoacidosis which was brought on by a urinary tract infection that spread to your kidney. You were treated with fluids and IV insulin as well as IV antibiotics. It will be important for you to complete the course of antibiotics that are being prescribed to you. You are going to be started on Cefdinir 300mg, take one tablet twice a day until it is gone, next dose is due on 01/15/22 in the morning. Your blood pressure was also high during your stay. We have started you on a blood pressure medication called Lisinopril. You will need to take this medication every day. You are also going to be sent home on potassium and magnesium that you will need to take every day. These are electrolytes that you need to keep your heart functioning properly. Keep salt intake to a minimum and avoid caffeine. Last, it is suspected that you have a stomach disorder called gastroparesis. This is an issue especially prevalent in diabetics where your stomach is very slow to release food into the small intestine. This can cause food to build up in your stomach and make you nauseated. For that, we have prescribed you a medication called Reglan to help move food along faster and reduce your feelings of indigestion and nausea. This medication should be taken before each meal and at bedtime. You are also being prescribed Protonix which will help reduce acid in your stomach. Take this first thing in the morning before eating or drinking. You will need to follow up with your family doctor within 1 week of discharge in order for her to follow up on these issues. If you have any questions when you are discharged, you may call the nonemergency number listed on your discharge paperwork. In the event of a medical emergency, call 911. Pending Studies at Discharge: No Stand-Alone Forms: My [employer], Smoking Cessation Medications and DC Order Prescriptions: New pantoprazole 40 mg Tablet,Delayed Release (Dr/Ec) 40 mg PO DAILY Qty: 30 0RF lisinopril 20 mg tablet 20 mg PO DAILY Qty: 30 0RF metoclopramide HCl [Reglan] 5 mg tablet 5 mg PO ACHS Qty: 120 0RF cefdinir 300 mg capsule 300 mg PO BID 6 Days Qty: 12 0RF Rx Instructions: start 01/15/22 furosemide [Lasix] 20 mg tablet 20 mg PO DAILY PRN (Reason: edema) Qty: 30 0RF potassium chloride 20 mEq tablet extended release 20 meq PO DAILY Qty: 30 0RF magnesium oxide 400 mg (241.3 mg magnesium) tablet 400 mg PO BID Qty: 60 0RF Continued cinnamon bark [Cinnamon] 500 mg capsule 1,000 mg PO DAILY (DME) pen needle, diabetic [Comfort EZ Pen [place]] 31 gauge x 5/16" needle See Dose Instructions .ROUTE .MEDSUPPLY Qty: 400 2RF Rx Instructions: inject 4 times daily as directed Tresiba FlexTouch U-100 100 unit/mL (3 mL) insulin pen 50 unit subcut QPM Qty: 15 2RF (DME) FreeStyle [place] 14 Day Sensor Kit See Rx Instructions miscellaneous .MEDSUPPLY Qty: 1 3RF Rx Instructions: As directed metformin 500 mg tablet extended release 24 hr 1,500 mg PO DAILY Qty: 270 3RF simvastatin 40 mg tablet 40 mg PO QPM Qty: 90 3RF (DME) lancets [OneTouch Delica Lancets] 33 gauge misc See Dose Instructions .ROUTE .MEDSUPPLY Qty: 400 3RF Rx Instructions: Test blood sugar 4 times daily and prn (DME) OneTouch Verio test strips Strip See Dose Instructions .ROUTE .MEDSUPPLY Qty: 400 3RF Rx Instructions: test blood sugar four times daily and prn (DME) blood-glucose meter [OneTouch Verio Flex Start] Kit See Rx Instructions .Route Qty: 1 0RF Rx Instructions: As directed hydrocodone-acetaminophen 5-325 mg tablet 1 tab PO Q6H PRN (Reason: pain) Qty: 20 0RF insulin lispro [Humalog KwikPen Insulin] 100 unit/mL insulin pen 0 unit SQ TIDM PRN (Reason: SLIDING SCALE) Discontinued furosemide 40 mg tablet 60 mg PO DAILY Qty: 45 5RF ibuprofen [Advil] 200 mg Tablet 400 mg PO Q6 PRN (Reason: Pain) Discharge Orders: Discharge Order (Routine); Ordered 01/14/22 Ordered By: Anika Catalan Admission Data Admit Date/Time: 01/11/22 22:37 Attending Provider: Les Dias Admit Provider: Efe Dorsey Primary Care Provider: Priscilla Lewis Other Providers: Efe Dorsey Other Interventions: Discharge Summary Assessment (RN) Last Done: 01/14/22 13:57 Coding Level of Care Code D/C DAY MANAGEMENT >30 MINS Diagnoses Nausea and vomiting R11.2 Pyelonephritis of right kidney N12 DKA (diabetic ketoacidosis) E11.10 Hypertensive urgency I16.0 Electrolyte abnormality E87.8 Diabetes type 1, uncontrolled E10.65 RUQ pain R10.11 Diabetic foot ulcers E11.621; L97.509 Pseudohyponatremia R79.89 Dyslipidemia E78.5 Lumbar radiculopathy M54.16
[2022-01-14] MEDS ORDERED: lisinopril 10 MG TAB PO ONE (16:15)
[2022-01-14 16:29] LABS: BUN Creatinine Ratio 15.6 (10-20); Calcium 8.5 mg/dl (8.5-10.1); Creatinine Clr Calc Pharmacy 186.9 ml/min; Est GFR (African American) 135.4 ml/min; Est GFR (Non-African American) 116.8 ml/min; Potassium 2.9 mmol/L (3.5-5.1)
[2022-01-14] MEDS ORDERED: POTASSIUM CHLORIDE CRTAB 20 MEQ TABCR PO STA (16:39)
[2022-01-14] MEDS: cefTRIAXone SODIUM 2,000 MG in DEXTROSE 5% 50 ML IV SCH (16:42)
[2022-01-14] MEDS: PANTOprazole 40 MG TAB PO SCH (16:48)
--- NOTE | 2022-01-14 21:44 | Electrocardiogram Report ---
Test Reason : Blood Pressure : / mmHG Vent. Rate : 115 BPM Atrial Rate : 115 BPM P-R Int : 142 ms QRS Dur : 084 ms QT Int : 326 ms P-R-T Axes : 071 025 042 degrees QTc Int : 450 ms Sinus tachycardia Otherwise normal ECG When compared with ECG of 11-JAN-2022 18:19, No significant change was found Confirmed by Joshua Rod ([id number]) on 01/14/2022 9:43:59 PM Referred By: Priscilla Lewis Confirmed By:Joshua Rod
== END 2022-01-14 18:57 | disposition home or self-care (01) | DRG 638 ==
LOC: ED 16:55 → EDINP 22:37 → SUATTDRO 22:37 → 1E 01-12 01:10 → 2S 01-13 21:13

== ENCOUNTER 2024-06-04 19:17 | Inpatient (IN) ==
[2024-06-04 19:54] LABS: Basophils # (auto) 0.01 K/uL (0.00-0.20); Basophils % (auto) 0.2 %; Eosinophils # (auto) 0.01 K/uL (0.00-0.50); Eosinophils % (auto) 0.2 %; Hematocrit (blood only) 38.2 % (37.0-47.0); Hemoglobin 13.2 g/dl (12.0-16.0); Immature Granulocytes # (auto) 0.02 K/uL (0.01-0.20); Immature Granulocytes % (auto) 0.3 %; Lymphocytes # (auto) 0.65 K/uL (1.20-3.40); Lymphocytes % (auto) 10.2 %; Mean Corpuscular Hemoglobin 28.5 pg (25.0-34.0); Mean Corpuscular Hgb Conc 34.6 g/dL (32.0-36.0); Mean Corpuscular Volume 82.5 fL (80.0-100.0); Mean Platelet Volume 10.4 fL (9.4-12.4); Monocytes # (auto) 0.22 K/uL (0.11-0.59); Monocytes % (auto) 3.5 %; Neutrophils # (auto) 5.45 K/uL (1.40-6.50); Neutrophils % (auto) 85.6 %; Platelet Count 210 K/uL (130-400); RDW Coefficient of Variation 14.6 % (11.5-14.5); RDW Standard Deviation 43.2 fL (36.4-46.3); Red Blood Count 4.63 M/uL (4.20-5.40); White Blood Count 6.36 K/ul (4.8-10.8)
[2024-06-04 20:02] LABS: Albumin Globulin Ratio 1.3 (0.9-2); Albumin Level 4.2 gm/dl (3.4-5.0); BUN Creatinine Ratio 17.7 (10-20); Bilirubin,Total 0.9 mg/dl (0.2-1.0); Calcium 9.6 mg/dl (8.6-10.3); Creatinine Clr Calc Pharmacy 111.9 ml/min; Globulin 3.3 gm/dl (2.5-4.0); Total Protein 7.5 gm/dl (6.0-8.3)
[2024-06-04 20:08] LABS: Troponin I High Sensitivity 10.4 pg/ml (0-14)
[2024-06-04 20:17] LABS: Partial Thromboplastin Time 28 Seconds (21-31); Prothrombin Time 10.4 Seconds (9.0-12.0)
[2024-06-04 20:41] LABS: Adenovirus PCR Not Detected (NotDetected); Bordetella parapertussis PCR Not Detected (NotDetected); Bordetella pertussis PCR Not Detected (NotDetected); Chlamydia pneumoniae PCR Not Detected (NotDetected); Coronavirus 229E PCR Not Detected (NotDetected); Coronavirus CoV-2 (COVID19)PCR Not Detected (NotDetected); Coronavirus HKU1 PCR Not Detected (NotDetected); Coronavirus NL63 PCR Not Detected (NotDetected); Coronavirus OC43PCR Not Detected (NotDetected); Human Metapneumovirus PCR Not Detected (NotDetected); Influenza A PCR Not Detected (NotDetected); Influenza B PCR Not Detected (NotDetected); Mycoplasma pneumoniae PCR Not Detected (NotDetected); Parainfluenza Virus 1 PCR Not Detected (NotDetected); Parainfluenza Virus 2 PCR Not Detected (NotDetected); Parainfluenza Virus 3 PCR Not Detected (NotDetected); Parainfluenza Virus 4 PCR Not Detected (NotDetected); Respiratory Syncytial VirusPCR Not Detected (NotDetected); Rhinovirus/Enterovirus PCR Not Detected (NotDetected)
[2024-06-04] MEDS: MoRPHine SULFATE 2 MG/ML CARP IV STA (21:03)
[2024-06-04] MEDS: ONDANSETRON INJ 2 MG/ML 2 ML VIAL IV STA ×2 (21:03→23:05)
[2024-06-04] MEDS: hydrALAZINE HCL 20 MG/ML VIAL IV STA (21:03)
[2024-06-04] MEDS: ACETAMINOPHEN 1,000 MG/100 ML VIAL IV STA (21:04)
[2024-06-04] MEDS: SODIUM CHLORIDE 0.9% 1,000 ML IV ONE (21:13)
[2024-06-04] MEDS: LABETALOL HCL IV 5 MG/ML 20ML IV STA (22:09)
--- NOTE | 2024-06-04 22:24 | XRay Report ---
Exam(s): XR CXR 1 VIEW EXAM: XR Chest, 1 View CLINICAL HISTORY: Reason for exam: Chest pain, nonspecific. TECHNIQUE: Frontal view of the chest. COMPARISON: Chest radiograph on 03/08/2019 FINDINGS: Hardware: None. Lungs/pleura: Normal. No focal consolidation. No pleural effusion or pneumothorax. Heart/mediastinum: Normal. No cardiomegaly. Soft tissues: Unremarkable. Bones: No acute fracture. Upper abdomen: Normal. IMPRESSION: No acute disease identified. Electronically signed by: Donna Casper M.D. 06/04/24 22:24 PM
[2024-06-04] MEDS: lisinopril 20 MG TAB PO STA (22:50)
--- NOTE | 2024-06-04 23:25 | CT Scan Report ---
Exam(s): CT HEAD Without Contrast EXAM: CT Head Without Intravenous Contrast CLINICAL HISTORY: Reason for exam: SIMON vomiting. TECHNIQUE: Axial computed tomography images of the head/brain without intravenous contrast. CTDI is 35 mGy and DLP is 624 mGy-cm. Automated exposure control was utilized for the study. A dose lowering technique was utilized adhering to the principles of ALARA. COMPARISON: MRI brain on 04/21/2016 FINDINGS: Brain: No acute infarct or hemorrhage. No extra-axial fluid collection. No mass effect or midline shift. Ventricles and sulci: Normal. No ventriculomegaly or intraventricular hemorrhage. Bones: Normal. No bony lesion or acute fracture. Subcutaneous tissues: Normal. Sinuses: Mild mucosal thickening in the ethmoid air cells. Mastoid air cells: Normal. Orbits: Grossly unremarkable. IMPRESSION: No acute intracranial abnormality. Electronically signed by: Donna Casper M.D. 06/04/24 23:24 PM
[2024-06-04] MEDS ORDERED: dexAMETHasone 6 MG in SYRINGE 0 ML IV ONE (23:49)
--- NOTE | 2024-06-04 23:54 | History & Physical Report ---
Date of Service June 04, 2024 Assessment & Plan (1) Intractable headache: (2) Nausea and vomiting: (3) Blurred vision, bilateral: (4) Uncontrolled hypertension: (5) Papilloedema, unspecified: (6) Type 2 diabetes mellitus: Plan The patient is a 83-year-old female with a past medical history including pseudohyponatremia, vitamin D deficiency, diabetic foot ulcer, diabetes mellitus type 1, Charcot joint of foot, background diabetic retinopathy, history of papilledema, peripheral neuropathy. She has a significant history of diabetic gastroparesis, and felt that her symptoms of nausea, vomiting and headache may have been associated with a most recent episode of gastroparesis. From the emergency department she received several doses of medications including hydralazine, labetalol and lisinopril to help control elevated blood pressure. She also received morphine, Zofran, 1 L normal saline and Tylenol 1 g IV to help deal directly with headache. With no significant improvement, she was referred for evaluation for admission. Additional workup from the ED itself included a CT scan head which was negative, chest x-ray which was negative, and BioFire testing which was negative #Possible pseudotumor cerebri- Symptom complex of intractable headache, blurred vision, nausea and vomiting, morbid obesity and uncontrolled hypertension. Patient history reports notation of papilledema CT scan head was negative, bio fire testing was negative MRI of brain without acute findings Ophthalmoscopic examination with optic nerve heads was mild blurring of margins. Patient did not have any suggestion of hemorrhaging as reported by nursing Given dexamethasone 6 mg IV, and Diamox 250 mg IV with improvement in heart rate from the 110s to 89, and blood pressure decreased from 212/110 to 154/110, with lowest 146/84 Continue dexamethasone 6 mg IV every morning, and acetazolamide to 50 mg IV every morning, with cover seamer to p.o. when indicated Additional laboratory workup: Tick borne studies, MARILOU, B12, folate, ESR are pending Consult neurology #Diabetes mellitus- Change glargine from 55 to 30 units subcu daily Placed on Accu-Cheks with NovoLog SSI Check hemoglobin A1c #Hyperlipidemia- Continue simvastatin Check a fasting lipid panel #Peripheral neuropathy- Continue gabapentin 400 mg at bedtime #GERD- Continue pantoprazole History of Present Illness Chief Complaint: The patient presented to the emergency department with complaint of 48 hours of severe headache, nausea, vomiting, that had been preceded by an additional 48 hours of generalized myalgias and arthralgias. She also reported blurred/graying of vision Primary Care Provider: Shaina Roman PA-C The patient is a 83-year-old female with a past medical history including pseudohyponatremia, vitamin D deficiency, diabetic foot ulcer, diabetes mellitus type 1, Charcot joint of foot, background diabetic retinopathy, history of papilledema, peripheral neuropathy. She has a significant history of diabetic gastroparesis, and felt that her symptoms of nausea, vomiting and headache may have been associated with a most recent episode of gastroparesis. From the emergency department she received several doses of medications including hydralazine, labetalol and lisinopril to help control elevated blood pressure. She also received morphine, Zofran, 1 L normal saline and Tylenol 1 g IV to help deal directly with headache. With no significant improvement, she was referred for evaluation for admission. Additional workup from the ED itself included a CT scan head which was negative, chest x-ray which was negative, and BioFire testing which was negative Allergies Allergy/AdvReac Type Severity Reaction Status Date / Time No Known Allergies Allergy Unknown Verified 06/05/24 00:10 Home Medications Medication Instructions Recorded Confirmed Type pen needle, diabetic 31 gauge x #400 ea 04/08/20 10/05/23 Rx 5/16" (Comfort EZ Pen [place]) flash glucose sensor (FreeStyle #1 ea 05/08/20 10/05/23 Rx Greer 14 Day Sensor kit) blood sugar diagnostic (OneTouch #400 ea 06/02/21 10/05/23 Rx Verio test strips) blood-glucose meter (OneTouch #1 ea 06/02/21 10/05/23 Rx Verio Flex Start kit) lancets 33 gauge (OneTouch Delica #400 ea 06/02/21 10/05/23 Rx Lancets) diclofenac sodium 1 % topical gel 4 g topical QID PRN Pain 06/23/22 06/04/24 History Humalog KwikPen Insulin 100 See Rx Instructions .Route 10/03/23 06/05/24 Rx unit/mL subcutaneous (insulin .COMPLEX #45 mL lispro) gabapentin 400 mg capsule 400 mg PO HS #90 caps 10/03/23 06/04/24 Rx simvastatin 40 mg tablet 40 mg PO QPM #90 tabs 10/03/23 06/04/24 Rx aspirin 325 mg tablet 325 mg PO DAILY 10/05/23 06/05/24 History furosemide 20 mg tablet (Lasix) 20 mg PO DAILY PRN edema #90 tabs 10/05/23 06/04/24 Rx lisinopril 30 mg tablet 30 mg PO DAILY #30 tabs 10/05/23 06/04/24 Rx metoclopramide HCl 5 mg tablet 5 mg PO DAILY #90 tabs 10/05/23 06/04/24 Rx (Reglan) magnesium oxide 400 mg (241.3 mg 400 mg PO DAILY #90 tabs 02/21/24 06/04/24 Rx magnesium) tablet pantoprazole 40 mg tablet,delayed 40 mg PO DAILY #90 tabs 03/11/24 06/05/24 Rx release insulin glargine 100 unit/mL (3 55 unit (0.55 mL) subcut QPM #15 mL 05/07/24 06/04/24 Rx mL) subcutaneous pen, sensor (Basaglar Tempo Pen (U-100) Insulin) Past Med/Surg History Problem List (Updated 06/05/24 @ 05:18 by Chun Kim MD) Type 2 diabetes mellitus Uncontrolled hypertension Blurred vision, bilateral Intractable headache Hypomagnesemia Lumbar radiculopathy Pseudohyponatremia Vitamin D deficiency (Chronic) Obesity (Chronic) Diabetic foot ulcer associated with type 1 diabetes mellitus (Chronic) Diabetes type 1, uncontrolled (Chronic) Charcot's joint 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) Background diabetic retinopathy associated with type 1 diabetes mellitus (Chronic) Papilloedema, unspecified (Chronic) Anemia (Chronic) Edema (Chronic) Loss of protective sensation of skin of foot (Chronic) Medical History Type 2 diabetes mellitus Benign essential hypertension Diabetic foot ulcers DKA (diabetic ketoacidosis) Cataract, bilateral Vitamin D deficiency Depression Grief at loss of child Obesity Dyslipidemia Diabetic peripheral neuropathy associated with type 1 diabetes mellitus Diabetic foot ulcer associated with type 1 diabetes mellitus Diabetes type 1, uncontrolled Charcot's joint of 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 1 diabetes mellitus Background diabetic retinopathy associated with type 1 diabetes mellitus Degenerative joint disease Allergic rhinitis Osteoarthritis Tachycardia Papilloedema, unspecified Anemia Pneumonia Surgical History H/O carpal tunnel repair History of total right hip arthroplasty S/P hip replacement Family History Mother Stroke Sister Arthritis Aunt Breast cancer Uncle Diabetes Social History (Updated 10/05/23 @ 16:12 by Taryn Harris LPN) Smoking Status: Never smoker Second Hand Exposure: No; Do You Dip or Chew Tobacco: No; Tobacco Cessation Education Requested by Patient: No Hx Alcohol Use: Yes Alcohol type: hard liquor Hx Substance Use: Yes Last Used Substance: Just Prior to Arrival Preferred Language: Angolan Communication Ability: Effective Visual Impairment: Severely Limited Hearing Ability: Normal Animal Laboratory Technician Required: No Beliefs That Will Affect Care: None marital status: Current Living Situation: Spouse Current Living Situation Comment: lives with /2 kids; 1 story; 4 steps/railing to enter current occupational status: employed 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 The review of systems is otherwise negative other than for that already noted above, and at least 10 systems have been reviewed. Physical Exam Physical Exam: The patient is awake, alert and oriented 3, well developed and well nourished, normocephalic and atraumatic, lying in bed and in no acute distress. HEENT--PERRL, EOMI, mucous membranes and oropharynx dry. Abdominal scopic exam with ONH mildly blurred. Negative Adrian Jared pupil Neck--supple. No JVD. No bruits. Thyroid normal, trachea midline, no adenopathy. Heart--normal S1 and S2. No murmurs, rubs or gallops. Lungs--clear bilaterally, no respiratory distress, no accessory muscle use. Abdomen--normal bowel sounds and soft. Nontender. Nondistended, no hernias or masses, no organomegaly. Extremities--no cyanosis or clubbing. No edema. Dermatologic--normal skin turgor, normal color, no abnormal lymph nodes, no rash. Neurologic--cranial nerves II through XII grossly intact. Rheumatologic--normal range of motion. Psychiatric--normal affect. Results & Data Results & Data Vital Signs (Past 12 Hours) Vital Signs Temp Pulse Resp BP Pulse Ox O2 Del Method 06/04/24 21:49 88 06/04/24 21:42 95 H 16 212/110 H 94 06/04/24 21:00 100 H 18 197/97 H 94 06/04/24 20:54 213/130 H 06/04/24 19:19 36.7 C 105 H 20 202/126 H 96 Room Air Laboratory Results Laboratory Results WBC 6.36 K/ul (4.8-10.8) 06/04/24 19: RBC 4.63 M/uL (4.20-5.40) 06/04/24 19:29 Hgb 13.2 g/dl (12.0-16.0) 06/04/24 19: Hct 38.2 % (37.0-47.0) 06/04/24 19: MCV 82.5 fL (80.0-100.0) 06/04/24 19: MCH 28.5 pg (25.0-34.0) 06/04/24: MCHC 34.6 g/dL (32.0-36.0) 06/04/24 19: RDW Std Deviation 43.2 fL (36.4-46.3) 06/04/24: RDW Coeff of Benny 14.6 % (11.5-14.5) H 06/04/24: Plt Count 210 K/uL (130-400) 06/04/24 19: MPV 10.4 fL (9.4-12.4) 06/04/24 19: Immature Gran % (Auto) 0.3 % 06/04/24: Neut % (Auto) 85.6 % 06/04/24 19:29 Lymph % (Auto) 10.2 % 06/04/24 19:29 [place] % (Auto) 3.5 % 06/04/24 19:29 Eos % (Auto) 0.2 % 06/04/24 19:29 Baso % (Auto) 0.2 % 06/04/24 19:29 Neut # (Auto) 5.45 K/uL (1.40-6.50) 06/04/24 19: Lymph # (Auto) 0.65 K/uL (1.20-3.40) L 06/04/24 19:29 [place] # (Auto) 0.22 K/uL (0.11-0.59) 06/04/24 19: Eos # (Auto) 0.01 K/uL (0.00-0.50) 06/04/24 19: Baso # (Auto) 0.01 K/uL (0.00-0.20) 06/04/24: Immature Gran # (Auto) 0.02 K/uL (0.01-0.20) 06/04/24 19:29 ESR 28 mm/hr (0-30) 06/04/24 19:29 PT 10.4 Seconds (9.0-12.0) 06/04/24 19:29 INR 1.0 (0.9-1.1) 06/04/24 19:29 APTT 28 Seconds (21-31) 06/04/24 19:29 PTT Ratio 1.0 06/04/24 19:29 Sodium 138 mmol/L (136-145) 06/04/24 19:29 Potassium 4.0 mmol/L (3.5-5.1) 06/04/24 19:29 Chloride 101 mmol/L (98-107) 06/04/24 19:29 Carbon Dioxide 27 mmol/L (21-32) 06/04/24 19:29 Anion Gap 10 (3-11) 06/04/24 19:29 BUN 14 mg/dl (6-23) 06/04/24 19:29 Creatinine 0.79 mg/dl (0.6-1.2) 06/04/24 19:29 Est Cr Clr Drug Dosing 111.9 ml/min 06/04/24 19:29 eGFR 89.95 06/04/24 19:29 BUN/Creatinine Ratio 17.7 (10-20) 06/04/24 19:29 Glucose 281 mg/dl (70-99(Fasting)) H 06/04/24 19:29 Calcium 9.6 mg/dl (8.6-10.3) 06/04/24 19:29 Total Bilirubin 0.9 mg/dl (0.2-1.0) 06/04/24 19:29 AST 15 U/L (13-39) 06/04/24 19:29 ALT 12 U/L (7-52) 06/04/24 19:29 Alkaline Phosphatase 90 U/L (34-104) 06/04/24 19:29 Troponin I High Sens 10.4 pg/ml (0-14) 06/04/24 19:29 Total Protein 7.5 gm/dl (6.0-8.3) 06/04/24 19:29 Albumin 4.2 gm/dl (3.4-5.0) 06/04/24 19:29 Globulin 3.3 gm/dl (2.5-4.0) 06/04/24 19:29 Albumin/Globulin Ratio 1.3 (0.9-2) 06/04/24 19:29 Vitamin B12 502 pg/ml (180-914) 06/04/24 19:29 Folate > 22.30 ng/ml (>5.38) 06/04/24 19:29 Adenovirus (PCR) Not Detected (NotDetected) 06/04/24 19:29 Anaplasma Smear See Comment 06/04/24 19:29 Babesia Smear See Comment 06/04/24 19:29 B. pertussis DNA (PCR) Not Detected (NotDetected) 06/04/24 19:29 B.parapertussis DNA PCR Not Detected (NotDetected) 06/04/24 19:29 Lyme Disease Screen Negative (Negative) 06/04/24 19:29 C. pneumoniae DNA (PCR) Not Detected (NotDetected) 06/04/24 19:29 Coronavirus OC43 (PCR) Not Detected (NotDetected) 06/04/24 19:29 Coronavirus HKU1 (PCR) Not Detected (NotDetected) 06/04/24 19:29 Coronavirus 229E (PCR) Not Detected (NotDetected) 06/04/24 19:29 SARS-CoV-2 (PCR) Not Detected (NotDetected) 06/04/24 19:29 Coronavirus NL63 (PCR) Not Detected (NotDetected) 06/04/24 19:29 Human Metapneumovir PCR Not Detected (NotDetected) 06/04/24 19:29 Influenza Type A (PCR) Not Detected (NotDetected) 06/04/24 19:29 Influenza Type B (PCR) Not Detected (NotDetected) 06/04/24 19:29 M. pneumoniae (PCR) Not Detected (NotDetected) 06/04/24 19:29 Parainfluenza 1 (PCR) Not Detected (NotDetected) 06/04/24 19:29 Parainfluenza 2 (PCR) Not Detected (NotDetected) 06/04/24 19:29 Parainfluenza 3 (PCR) Not Detected (NotDetected) 06/04/24 19:29 Parainfluenza 4 (PCR) Not Detected (NotDetected) 06/04/24 19:29 RSV (PCR) Not Detected (NotDetected) 06/04/24 19:29 Entero/Rhino (PCR) Not Detected (NotDetected) 06/04/24 19:29 Impressions Chest X-Ray 06/04/24 19:22 Exam(s): XR CXR 1 VIEW EXAM: XR Chest, 1 View CLINICAL HISTORY: Reason for exam: Chest pain, nonspecific. TECHNIQUE: Frontal view of the chest. COMPARISON: Chest radiograph on 03/08/2019 FINDINGS: Hardware: None. Lungs/pleura: Normal. No focal consolidation. No pleural effusion or pneumothorax. Heart/mediastinum: Normal. No cardiomegaly. Soft tissues: Unremarkable. Bones: No acute fracture. Upper abdomen: Normal. IMPRESSION: No acute disease identified. Electronically signed by: Donna Casper M.D. 06/04/24 22:[address] 06/04/24 20:54 Exam(s): CT HEAD Without Contrast EXAM: CT Head Without Intravenous Contrast CLINICAL HISTORY: Reason for exam: SIMON vomiting. TECHNIQUE: Axial computed tomography images of the head/brain without intravenous contrast. CTDI is 35 mGy and DLP is 624 mGy-cm. Automated exposure control was utilized for the study. A dose lowering technique was utilized adhering to the principles of ALARA. COMPARISON: MRI brain on 04/21/2016 FINDINGS: Brain: No acute infarct or hemorrhage. No extra-axial fluid collection. No mass effect or midline shift. Ventricles and sulci: Normal. No ventriculomegaly or intraventricular hemorrhage. Bones: Normal. No bony lesion or acute fracture. Subcutaneous tissues: Normal. Sinuses: Mild mucosal thickening in the ethmoid air cells. Mastoid air cells: Normal. Orbits: Grossly unremarkable. IMPRESSION: No acute intracranial abnormality. Electronically signed by: Donna Casper M.D. 06/04/24 23:24 PM Brain MRI 06/05/24 00:00 EXAM: MR brain wo/w con CLINICAL HISTORY: No complaints from PT, has been having vomiting and headaches, was told by Dr. Kim that she might have bleeding behind the optic nerve or on her brain, no injury, PT very claustrophobic, was given Ativan before MRI scan, ran propellers to help with motion, sent to [facility] TECHNIQUE: MRI of the brain was performed with and without 11mL Gadavist intravenous contrast administration. Sequences obtained include pre-contrast and post-contrast T1-weighted, T2-weighted, FLAIR (Fluid-Attenuated Inversion Recovery), DWI (Diffusion-Weighted Imaging), and ADC (Apparent Diffusion Coefficient) sequences. COMPARISON: 04/21/2016 FINDINGS: Brain Parenchyma: No evidence of extra-axial or intracerebral bleeds. Few blooming artifacts are noted behind the greater wing of sphenoid bone on T2* images , likely artifacts rather than bleeds. No evidence of acute infarction or hemorrhage. Matthews-white matter differentiation is preserved. No abnormal signal intensity lesions identified. Post-Contrast Findings: No abnormal enhancement of the brain parenchyma or meninges. Ventricles and Sulci: Ventricular system is within normal limits without evidence of hydrocephalus. Sulci and cisternal spaces are age-appropriate. Brainstem and Cerebellum: Normal appearance of the brainstem and cerebellum without focal lesions or abnormal enhancement. Vessels: Intracranial vessels appear normal without evidence of vascular malformations or aneurysms. Skull and Calvarium: No evidence of skull vault lesions or abnormal marrow signal within the calvarium. IMPRESSION: 1. No evidence of acute intracranial pathology or abnormal contrast enhancement. 2. No evidence of extra-axial or intracerebral bleeds. Few blooming artifacts are noted behind the greater wing of sphenoid bones on T2* images, , likely artifacts rather than bleeds. If clinically warranted, CT would also help exclude the possiblity of hematomas. 3. No significant interval changes. Electronically signed by Raman Babb 06-05-2024 02:37 AM Code Status & VTE Plan Code Status Full code VTE Prophylaxis Plan VTE Prophylaxis will be ordered: Yes PG Care Time/CCT Total # of Minutes Spent Total Time Spent with Patient: Total time spent is greater than 50% in coordination of care (as documented) at patient's floor/unit and/or counseling patient: Coding Level of Care Code 22183 INT INP/OBS CARE 3/75MIN Diagnoses Intractable headache R51.9 Nausea and vomiting R11.2 Blurred vision, bilateral H53.8 Uncontrolled hypertension I10 Papilloedema, unspecified H47.10 Type 2 diabetes mellitus E11.9
[2024-06-05] MEDS: DEXAMETHASONE SOD INJ 4 MG/ML VIAL IV ONE (00:07)
[2024-06-05] MEDS: LORazepam 2 MG/1 ML VIAL IV STA (00:08)
[2024-06-05] MEDS ORDERED: CARBOHYDRATES FOR HYPOGLYCEMIA PO PRN (00:15)
[2024-06-05] MEDS ORDERED: GLUCOSE 40% GEL 15 GM TUBE PO PRN (00:15)
[2024-06-05] MEDS ORDERED: ONDANSETRON INJ 2 MG/ML 2 ML VIAL IV PRN (00:15)
[2024-06-05] MEDS ORDERED: GLUCAGON FOR INJ 1 MG VIAL SQ PRN (00:15)
[2024-06-05] MEDS ORDERED: GLUCOSE 10 TAB/TUBE PO PRN (00:15)
[2024-06-05] MEDS ORDERED: DEXTROSE 50% 50 ML SYRINGE IV PRN (00:15)
[2024-06-05 00:28] LABS: Folate (Folic Acid),Ser orPlas > 22.30 ng/ml (>5.38)
[2024-06-05 00:29] LABS: Vitamin B12 502 pg/ml (180-914)
[2024-06-05] MEDS: GADOBUTROL 15ML VIAL IV ONE (00:47)
[2024-06-05] MEDS: acetaZOLAMIDE 250 MG in SYRINGE 0 ML IV STA ×3 (01:37→07:42)
--- NOTE | 2024-06-05 02:37 | Magnetic Resonance Report ---
EXAM: MR brain wo/w con CLINICAL HISTORY: No complaints from PT, has been having vomiting and headaches, was told by Dr. Kim that she might have bleeding behind the optic nerve or on her brain, no injury, PT very claustrophobic, was given Ativan before MRI scan, ran propellers to help with motion, sent to [facility] TECHNIQUE: MRI of the brain was performed with and without 11mL Gadavist intravenous contrast administration. Sequences obtained include pre-contrast and post-contrast T1-weighted, T2-weighted, FLAIR (Fluid-Attenuated Inversion Recovery), DWI (Diffusion-Weighted Imaging), and ADC (Apparent Diffusion Coefficient) sequences. COMPARISON: 04/21/2016 FINDINGS: Brain Parenchyma: No evidence of extra-axial or intracerebral bleeds. Few blooming artifacts are noted behind the greater wing of sphenoid bone on T2* images , likely artifacts rather than bleeds. No evidence of acute infarction or hemorrhage. Matthews-white matter differentiation is preserved. No abnormal signal intensity lesions identified. Post-Contrast Findings: No abnormal enhancement of the brain parenchyma or meninges. Ventricles and Sulci: Ventricular system is within normal limits without evidence of hydrocephalus. Sulci and cisternal spaces are age-appropriate. Brainstem and Cerebellum: Normal appearance of the brainstem and cerebellum without focal lesions or abnormal enhancement. Vessels: Intracranial vessels appear normal without evidence of vascular malformations or aneurysms. Skull and Calvarium: No evidence of skull vault lesions or abnormal marrow signal within the calvarium. IMPRESSION: 1. No evidence of acute intracranial pathology or abnormal contrast enhancement. 2. No evidence of extra-axial or intracerebral bleeds. Few blooming artifacts are noted behind the greater wing of sphenoid bones on T2* images, , likely artifacts rather than bleeds. If clinically warranted, CT would also help exclude the possiblity of hematomas. 3. No significant interval changes. Electronically signed by Raman Babb 06-05-2024 02:37 AM
[2024-06-05] MEDS: MELATONIN 3 MG TAB PO PRN (04:17)
[2024-06-05] MEDS: dexAMETHasone 6 MG in SYRINGE 0 ML IV SCH ×2 (06:08→17:49)
[2024-06-05] MEDS: ACETAMINOPHEN 1,000 MG/100 ML VIAL IV STA (06:39)
[2024-06-05 07:16] LABS: Estimated Average Glucose 154 mg/dl
[2024-06-05 07:22] LABS: Basophils # (auto) 0.01 K/uL (0.00-0.20); Basophils % (auto) 0.2 %; Hematocrit (blood only) 32.5 % (37.0-47.0); Hemoglobin 11.1 g/dl (12.0-16.0); Immature Granulocytes # (auto) 0.06 K/uL (0.01-0.20); Immature Granulocytes % (auto) 1.1 %; Lymphocytes # (auto) 0.61 K/uL (1.20-3.40); Lymphocytes % (auto) 11.4 %; Mean Corpuscular Hemoglobin 28.6 pg (25.0-34.0); Mean Corpuscular Hgb Conc 34.2 g/dL (32.0-36.0); Mean Corpuscular Volume 83.8 fL (80.0-100.0); Mean Platelet Volume 10.1 fL (9.4-12.4); Monocytes # (auto) 0.13 K/uL (0.11-0.59); Monocytes % (auto) 2.4 %; Neutrophils # (auto) 4.52 K/uL (1.40-6.50); Neutrophils % (auto) 84.9 %; Platelet Count 172 K/uL (130-400); RDW Coefficient of Variation 14.7 % (11.5-14.5); RDW Standard Deviation 44.6 fL (36.4-46.3); Red Blood Count 3.88 M/uL (4.20-5.40); White Blood Count 5.33 K/ul (4.8-10.8)
[2024-06-05 07:37] LABS: Albumin Globulin Ratio 1.3 (0.9-2); Albumin Level 3.6 gm/dl (3.4-5.0); BUN Creatinine Ratio 18.9 (10-20); Bilirubin,Total 0.6 mg/dl (0.2-1.0); Calcium 8.7 mg/dl (8.6-10.3); Creatinine Clr Calc Pharmacy 119.6 ml/min; Globulin 2.8 gm/dl (2.5-4.0); Magnesium 1.5 mg/dl (1.7-2.4); Potassium 3.8 mmol/L (3.5-5.1); Total Protein 6.4 gm/dl (6.0-8.3)
[2024-06-05] MEDS: dexAMETHasone 6 MG in SYRINGE 0 ML IV ONE (07:48)
[2024-06-05] MEDS: INSULIN ASPART PER UNIT CHARGE SC SCH (09:06)
[2024-06-05] MEDS: PANTOprazole 40 MG TAB PO SCH (09:10)
[2024-06-05] MEDS: LANTUS PER UNIT CHARGE SQ SCH (10:57)
--- NOTE | 2024-06-05 11:24 | Neurology Consultation ---
Date of Consultation June 05, 2024 Assessment & Plan (1) Uncontrolled hypertension: (2) Intractable headache: History of Present Illness Attending Physician: Rachel Lynn MD History of Present Illness pt this morning resting in bed. pt states she has headache but does not appears to be severe as pt is able to communicate well without much problem. mri brain negative. pt with recent URI symptoms for few weeks and GI issues. pt describes entire crani head pain in setting of uncontrolled HTN. pt also gets more headache when not eating and she has not had good meal for few days due to GI issues. seen ophthalmology recently, overall no major issues. hx of papilledema. admission HPI: The patient is a 83-year-old female with a past medical history including pseudohyponatremia, vitamin D deficiency, diabetic foot ulcer, diabetes mellitus type 1, Charcot joint of foot, background diabetic retinopathy, history of papilledema, peripheral neuropathy. She has a significant history of diabetic gastroparesis, and felt that her symptoms of nausea, vomiting and headache may have been associated with a most recent episode of gastroparesis. From the emergency department she received several doses of medications including hydralazine, labetalol and lisinopril to help control elevated blood pressure. She also received morphine, Zofran, 1 L normal saline and Tylenol 1 g IV to help deal directly with headache. With no significant improvement, she was referred for evaluation for admission. Additional workup from the ED itself included a CT scan head which was negative, chest x-ray which was negative, and [employer] testing which was negative Allergies Allergy/AdvReac Type Severity Reaction Status Date / Time No Known Allergies Allergy Unknown Verified 06/05/24 00:10 Home Medications Medication Instructions Recorded Confirmed Type pen needle, diabetic 31 gauge x #400 ea 04/08/20 10/05/23 Rx 5/16" (Comfort EZ Pen [place]) flash glucose sensor (FreeStyle #1 ea 05/08/20 10/05/23 Rx Greer 14 Day Sensor kit) blood sugar diagnostic (OneTouch #400 ea 06/02/21 10/05/23 Rx Verio test strips) blood-glucose meter (OneTouch #1 ea 06/02/21 10/05/23 Rx Verio Flex Start kit) lancets 33 gauge (OneTouch Delica #400 ea 06/02/21 10/05/23 Rx Lancets) diclofenac sodium 1 % topical gel 4 g topical QID PRN Pain 06/23/22 06/04/24 History Humalog KwikPen Insulin 100 See Rx Instructions .Route 10/03/23 06/05/24 Rx unit/mL subcutaneous (insulin .COMPLEX #45 mL lispro) gabapentin 400 mg capsule 400 mg PO HS #90 caps 10/03/23 06/04/24 Rx simvastatin 40 mg tablet 40 mg PO QPM #90 tabs 10/03/23 06/04/24 Rx aspirin 325 mg tablet 325 mg PO DAILY 10/05/23 06/05/24 History furosemide 20 mg tablet (Lasix) 20 mg PO DAILY PRN edema #90 tabs 10/05/23 06/04/24 Rx lisinopril 30 mg tablet 30 mg PO DAILY #30 tabs 10/05/23 06/04/24 Rx metoclopramide HCl 5 mg tablet 5 mg PO DAILY #90 tabs 10/05/23 06/04/24 Rx (Reglan) magnesium oxide 400 mg (241.3 mg 400 mg PO DAILY #90 tabs 02/21/24 06/04/24 Rx magnesium) tablet pantoprazole 40 mg tablet,delayed 40 mg PO DAILY #90 tabs 03/11/24 06/05/24 Rx release insulin glargine 100 unit/mL (3 55 unit (0.55 mL) subcut QPM #15 mL 05/07/24 06/04/24 Rx mL) subcutaneous pen, sensor (Basaglar Tempo Pen (U-100) Insulin) Patient History Medical History Type 2 diabetes mellitus Benign essential hypertension Diabetic foot ulcers DKA (diabetic ketoacidosis) Cataract, bilateral Vitamin D deficiency Depression Grief at loss of child Obesity Dyslipidemia Diabetic peripheral neuropathy associated with type 1 diabetes mellitus Diabetic foot ulcer associated with type 1 diabetes mellitus Diabetes type 1, uncontrolled Charcot's joint of 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 1 diabetes mellitus Background diabetic retinopathy associated with type 1 diabetes mellitus Degenerative joint disease Allergic rhinitis Osteoarthritis Tachycardia Papilloedema, unspecified Anemia Pneumonia Surgical History H/O carpal tunnel repair History of total right hip arthroplasty S/P hip replacement Family History Mother Stroke Sister Arthritis Aunt Breast cancer Uncle Diabetes Social History (Updated 10/05/23 @ 16:12 by Taryn Harris LPN) Smoking Status: Never smoker Second Hand Exposure: No; Do You Dip or Chew Tobacco: No; Tobacco Cessation Education Requested by Patient: No Hx Alcohol Use: Yes Alcohol type: hard liquor Hx Substance Use: Yes Last Used Substance: Just Prior to Arrival Preferred Language: Jamaican Communication Ability: Effective Visual Impairment: Severely Limited Hearing Ability: Normal Assorter Laundry Required: No Beliefs That Will Affect Care: None marital status: Current Living Situation: Spouse Current Living Situation Comment: lives with /2 kids; 1 story; 4 steps/railing to enter current occupational status: employed 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 Likely worsening headache from viral syndrome with GI issues and not able to eat much (which is known common trigger for her headache per pt). I do not feel pseudotumor cerebri is actual cause for current headache. Recommendations: -need strict BP control/management improve GI issues as for this pt, it is common trigger for her. can change diamox to po formulation, 250mg po bid plenty of IVF hydration also will help greatly. try Magnesium IV Infusion 1gram over 1 hr slow infusion to break headache. increase neurontin to 200mg AM and 400mg PM. if Magnesium IV not working, can try IV depakene (valproic acid) 250mg IV q8h prn. she can have routine outpt evaluation for headache and pseudotumor cerebri. call again if new question. Chart reviewed I have spent more than 50% educating patient about potential diagnosis and neurological evaluation and coordinating care with patient's treatment team. Total time spent (including chart review and coordination of care): 60 min (this includes chart review). Results & Data Vital Signs (Past 12 Hours) Vital Signs Pulse Pulse Resp BP BP Pulse Ox Pulse Ox 06/05/24 07:24 98 H 20 207/115 H 94 06/05/24 07:14 106 H 06/05/24 06:03 89 18 213/115 H 98 06/05/24 04:18 89 16 154/110 H 97 06/05/24 01:58 88 17 181/103 H 98 06/05/24 01:54 98 H 183/101 H 06/05/24 01:52 96 06/05/24 01:51 102 H 17 183/101 H 96 06/05/24 01:48 91 H 06/05/24 00:00 93 H 23 146/84 H 92 06/04/24 23:30 108 H 19 178/103 H 94 O2 Del Method O2 Del Method 06/05/24 07:24 Room Air 06/05/24 07:14 06/05/24 06:03 Room Air 06/05/24 04:18 Room Air 06/05/24 01:58 Room Air 06/05/24 01:54 06/05/24 01:52 Room Air 06/05/24 01:51 Room Air 06/05/24 01:48 06/05/24 00:00 06/04/24 23:30 PG Care Time/CCT Total # of Minutes Spent Total Time Spent with Patient: Total time spent is greater than 50% in coordination of care (as documented) at patient's floor/unit and/or counseling patient: Coding Level of Care Code 28702 IN/OBS CONSULT LVL 4,60M Diagnoses Uncontrolled hypertension I10 Intractable tension-type headache, unspecified chronicity pattern G44.201 Headache chronicity pattern: unspecified pattern Headache type: tension-type (2) Intractable headache Headache chronicity pattern: unspecified pattern Headache type: tension-type Qualified Code(s): G44.201 - Tension-type headache, unspecified, intractable
--- NOTE | 2024-06-05 11:47 | Emergency Department Note ---
Impression & Plan Hypertensive urgency, Acute intractable headache, Vomiting ED Provider Note CHIEF COMPLAINT: Headache, vomiting HISTORY OF PRESENT ILLNESS: This 53-year-old female patient past medical history of type 2 diabetes, hypertension, obesity, diabetic foot wound, Charcot joint, diabetic retinopathy presents to the emergency department with complaints of persistent headache and vomiting. Patient states she has been sick since 05/28 and been using Zofran intermittently. She has been taking her medications, but has not been able to keep much down. She denies any high fevers, blood in the emesis. She denies visual changes, chest pain or shortness of breath. REVIEW OF SYSTEMS: A review of systems was performed with positives and pertinent negatives listed in the history of present illness. 10 systems were reviewed and are otherwise negative. ALLERGIES: see below MEDICATIONS: see below PMH: see below SOCIAL HISTORY: see below DDx: Hypertensive urgency, intracranial hemorrhage, intracranial mass, renal failure, medication noncompliance, pseudotumor cerebri among others. PHYSICAL EXAM: Vital signs reviewed. Noted to be hypertensive General: Well-appearing 53-year-old female, in no significant distress. HEENT: No scleral icterus, PERRLA, neck supple. Moist mucous membranes. Cardiovascular: Slightly tachycardic, no extra sounds. Pulmonary: Clear to auscultation bilaterally, normal work of breathing. Abdomen: Soft, obese, nontender, nondistended, positive bowel sounds. Musculoskeletal: Atraumatic, no peripheral edema. Orthopedic boot noted to the right lower extremity Neurologic: Patient awake alert and oriented x 3, speech is clear. No meningeal signs. Moves all extremities equally. Skin: Warm, dry, no rash EMERGENCY DEPARTMENT COURSE/MDM: This patient was evaluated and appeared to be in no significant distress. IV access was obtained and laboratory work was drawn. The patient was placed on the secured entrance monitor noted to be a sinus tachycardia. Blood pressure is noted to be moderately elevated. Patient was given 10 mg of IV hydralazine. She was hydrated with normal saline solution and given IV Tylenol, and IV Zofran. Patient's blood pressure remained elevated and she was then given 10 mg of IV labetalol. This was ordered in review of the patient's medication list, she has been on lisinopril. However I do not believe the patient likely kept it down as she proceeded to vomit. IV morphine was then ordered for headache. Head CT was negative for acute intracranial pathology. Laboratory work is fairly reassuring. Case was discussed with the hospitalist, Dr. Delaney for admission and further management. Patient was made aware of the findings and plan and agrees. MONITORING: An order for cardiac monitoring was placed and the patient is noted to be in a sinus tachycardia at 108 beats per minute. RADIOLOGY: CT imaging of the head per radiology is negative for acute intracranial process. Chest x-ray to my interpretation reveals no evidence of focal consolidation or failure. EKG: To my interpretation reveals normal sinus rhythm at 99 bpm. Minimal voltage for LVH. QTc of 436. No PVC, no PAC. DISPOSITION: Admission I have personally spent greater than 35 minutes of critical care time in the direct management of this patient. This includes bedside care, interpretation of diagnostic studies, and testing, discussion with consultants, patient, and family members, and other required patient management activities. This 35 minutes is in excess of all separately billable procedures. Past Med/Surg History Problem List (Updated 06/05/24 @ 12:01 by Pat Milian MD) Vomiting (Acute) Acute intractable headache (Acute) Hypertensive urgency (Acute) Type 2 diabetes mellitus Uncontrolled hypertension Blurred vision, bilateral Intractable headache Hypomagnesemia Lumbar radiculopathy Pseudohyponatremia Vitamin D deficiency (Chronic) Obesity (Chronic) Diabetic foot ulcer associated with type 1 diabetes mellitus (Chronic) Diabetes type 1, uncontrolled (Chronic) Charcot's joint 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) Background diabetic retinopathy associated with type 1 diabetes mellitus (Chronic) Papilloedema, unspecified (Chronic) Anemia (Chronic) Edema (Chronic) Loss of protective sensation of skin of foot (Chronic) Medical History Type 2 diabetes mellitus Benign essential hypertension Diabetic foot ulcers DKA (diabetic ketoacidosis) Cataract, bilateral Vitamin D deficiency Depression Grief at loss of child Obesity Dyslipidemia Diabetic peripheral neuropathy associated with type 1 diabetes mellitus Diabetic foot ulcer associated with type 1 diabetes mellitus Diabetes type 1, uncontrolled Charcot's joint of 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 1 diabetes mellitus Background diabetic retinopathy associated with type 1 diabetes mellitus Degenerative joint disease Allergic rhinitis Osteoarthritis Tachycardia Papilloedema, unspecified Anemia Pneumonia Surgical History H/O carpal tunnel repair History of total right hip arthroplasty S/P hip replacement Family History Mother Stroke Sister Arthritis Aunt Breast cancer Uncle Diabetes Social History (Updated 10/05/23 @ 16:12 by Taryn Harris LPN) Smoking Status: Never smoker Second Hand Exposure: No; Do You Dip or Chew Tobacco: No; Tobacco Cessation Education Requested by Patient: No Hx Alcohol Use: Yes Alcohol type: hard liquor Hx Substance Use: Yes Last Used Substance: Just Prior to Arrival Preferred Language: Frisian Communication Ability: Effective Visual Impairment: Severely Limited Hearing Ability: Normal [employer] Supervisor Required: No Beliefs That Will Affect Care: None marital status: Current Living Situation: Spouse Current Living Situation Comment: lives with /2 kids; 1 story; 4 steps/railing to enter current occupational status: employed 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 Other Information That Helps Us Care for You: No Feels Safe at Home: Yes Safety Concerns: Feels Safe At This Time Diet: regular Assistive Devices: None Allergies Allergies Allergy/AdvReac Type Severity Reaction Status Date / Time No Known Allergies Allergy Unknown Verified 06/05/24 00:10 Home Meds Home Medications Medication Instructions Recorded Confirmed diclofenac sodium 1 % topical gel 4 g topical QID PRN Pain 06/23/22 06/04/24 aspirin 325 mg tablet 325 mg PO DAILY 10/05/23 06/05/24 Previous Rx's Medication Instructions Recorded pen needle, diabetic 31 gauge x #400 ea 04/08/20 5/16" (Comfort EZ Pen [place]) flash glucose sensor (FreeStyle #1 ea 05/08/20 [place] 14 Day Sensor kit) blood sugar diagnostic (OneTouch #400 ea 06/02/21 Verio test strips) blood-glucose meter (OneTouch #1 ea 06/02/21 Verio Flex Start kit) lancets 33 gauge (OneTouch Delica #400 ea 06/02/21 Lancets) Humalog KwikPen Insulin 100 See Rx Instructions .Route 10/03/23 unit/mL subcutaneous (insulin .COMPLEX #45 mL lispro) gabapentin 400 mg capsule 400 mg PO HS #90 caps 10/03/23 simvastatin 40 mg tablet 40 mg PO QPM #90 tabs 10/03/23 furosemide 20 mg tablet (Lasix) 20 mg PO DAILY PRN edema #90 tabs 10/05/23 lisinopril 30 mg tablet 30 mg PO DAILY #30 tabs 10/05/23 metoclopramide HCl 5 mg tablet 5 mg PO DAILY #90 tabs 10/05/23 (Reglan) magnesium oxide 400 mg (241.3 mg 400 mg PO DAILY #90 tabs 02/21/24 magnesium) tablet pantoprazole 40 mg tablet,delayed 40 mg PO DAILY #90 tabs 03/11/24 release insulin glargine 100 unit/mL (3 55 unit (0.55 mL) subcut QPM #15 mL 05/07/24 mL) subcutaneous pen, sensor (Basaglar Tempo Pen (U-100) Insulin) Results & Data (ED) Vital Signs Vital Signs - 24 hr 06/04/24 19:19 06/04/24 20:54 06/04/24 21:00 Temperature 36.7 C Temperature Source Temporal Artery Scan Pulse Rate 105 H 100 H Pulse Rate from SpO2 Sensor Respiratory Rate 20 18 Respiratory Effort / Characteristics Non-Labored Respiratory Depth Normal Respiratory Pattern Regular Blood Pressure 202/126 H 213/130 H 197/97 H Blood Pressure Mean 151 139 143 Pulse Oximetry 96 94 Oxygen Delivery Method Room Air Sepsis Recent Fever Within 48 Hours No Sepsis New/Unexplained Change in Mental Status N/A Sepsis Action Taken by Nursing No Action Required 06/04/24 21:42 06/04/24 21:48 06/04/24 21:49 Temperature Temperature Source Pulse Rate 95 H 88 88 Pulse Rate from SpO2 Sensor 95 H 88 Respiratory Rate 16 17 Respiratory Effort / Characteristics Respiratory Depth Respiratory Pattern Blood Pressure 212/110 H 212/110 H Blood Pressure Mean 144 144 Pulse Oximetry 94 96 Oxygen Delivery Method Sepsis Recent Fever Within 48 Hours Sepsis New/Unexplained Change in Mental Status Sepsis Action Taken by Nursing 06/04/24 22:10 06/04/24 22:30 06/04/24 23:30 Temperature Temperature Source Pulse Rate 88 91 H 108 H Pulse Rate from SpO2 Sensor 88 91 H 108 H Respiratory Rate 18 17 19 Respiratory Effort / Characteristics Respiratory Depth Respiratory Pattern Blood Pressure 206/103 H 192/105 H 178/103 H Blood Pressure Mean 124 123 120 Pulse Oximetry 95 94 94 Oxygen Delivery Method Sepsis Recent Fever Within 48 Hours Sepsis New/Unexplained Change in Mental Status Sepsis Action Taken by [facility] Medications Current Medication List: was personally reviewed by me Laboratory Data Attestation: I reviewed the patient's lab results. 06/05/24 06:55 06/05/24 06:55 Lab Results 06/04/24 Range/Units 19:29 WBC 6.36 (4.8-10.8) K/ul RBC 4.63 (4.20-5.40) M/uL Hgb 13.2 (12.0-16.0) g/dl Hct 38.2 (37.0-47.0) % MCV 82.5 (80.0-100.0) fL MCH 28.5 (25.0-34.0) pg MCHC 34.6 (32.0-36.0) g/dL RDW Std Deviation 43.2 (36.4-46.3) fL RDW Coeff of Benny 14.6 H (11.5-14.5) % Plt Count 210 (130-400) K/uL MPV 10.4 (9.4-12.4) fL Immature Gran % (Auto) 0.3 % Neut % (Auto) 85.6 % Lymph % (Auto) 10.2 % Page % (Auto) 3.5 % Eos % (Auto) 0.2 % Baso % (Auto) 0.2 % Neut # (Auto) 5.45 (1.40-6.50) K/uL Lymph # (Auto) 0.65 L (1.20-3.40) K/uL Page # (Auto) 0.22 (0.11-0.59) K/uL Eos # (Auto) 0.01 (0.00-0.50) K/uL Baso # (Auto) 0.01 (0.00-0.20) K/uL Immature Gran # (Auto) 0.02 (0.01-0.20) K/uL ESR 28 (0-30) mm/hr PT 10.4 (9.0-12.0) Seconds INR 1.0 (0.9-1.1) APTT 28 (21-31) Seconds PTT Ratio 1.0 Sodium 138 (136-145) mmol/L Potassium 4.0 (3.5-5.1) mmol/L Chloride 101 (98-107) mmol/L Carbon Dioxide 27 (21-32) mmol/L Anion Gap 10 (3-11) BUN 14 (6-23) mg/dl Creatinine 0.79 (0.6-1.2) mg/dl Est Cr Clr Drug Dosing 111.9 ml/min eGFR 89.95 BUN/Creatinine Ratio 17.7 (10-20) Glucose 281 H (70-99(Fasting)) mg/dl Estimat Average Glucose 154 mg/dl Hemoglobin A1c 7.0 H (4.5-5.6) % Calcium 9.6 (8.6-10.3) mg/dl Total Bilirubin 0.9 (0.2-1.0) mg/dl AST 15 (13-39) U/L ALT 12 (7-52) U/L Alkaline Phosphatase 90 (34-104) U/L Troponin I High Sens 10.4 (0-14) pg/ml Total Protein 7.5 (6.0-8.3) gm/dl Albumin 4.2 (3.4-5.0) gm/dl Globulin 3.3 (2.5-4.0) gm/dl Albumin/Globulin Ratio 1.3 (0.9-2) Vitamin B12 502 (180-914) pg/ml Folate > 22.30 (>5.38) ng/ml Adenovirus (PCR) Not Detected (NotDetected) Anaplasma Smear See Comment Babesia Smear See Comment B. pertussis DNA (PCR) Not Detected (NotDetected) B.parapertussis DNA PCR Not Detected (NotDetected) Lyme Disease Screen Negative (Negative) C. pneumoniae DNA (PCR) Not Detected (NotDetected) Coronavirus OC43 (PCR) Not Detected (NotDetected) Coronavirus HKU1 (PCR) Not Detected (NotDetected) Coronavirus 229E (PCR) Not Detected (NotDetected) SARS-CoV-2 (PCR) Not Detected (NotDetected) Coronavirus NL63 (PCR) Not Detected (NotDetected) Human Metapneumovir PCR Not Detected (NotDetected) Influenza Type A (PCR) Not Detected (NotDetected) Influenza Type B (PCR) Not Detected (NotDetected) M. pneumoniae (PCR) Not Detected (NotDetected) Parainfluenza 1 (PCR) Not Detected (NotDetected) Parainfluenza 2 (PCR) Not Detected (NotDetected) Parainfluenza 3 (PCR) Not Detected (NotDetected) Parainfluenza 4 (PCR) Not Detected (NotDetected) RSV (PCR) Not Detected (NotDetected) Entero/Rhino (PCR) Not Detected (NotDetected) Administered Medications Insulin Aspart (Insulin Aspart Per Unit Charge) 0 units SC ACHS ERNESTO Stop: 07/05/24 07:29 Last Admin: 06/05/24 09:06 Dose: 9 units Documented By: DELFINA Co-signed By: RUTH Insulin Glargine (Lantus Per Unit Charge) 30 units SQ DAILY ERNESTO Stop: 07/05/24 08:59 Last Admin: 06/05/24 10:57 Dose: Not Given Documented By: DELFINA Melatonin (Melatonin 3 Mg Tab) 3 mg PO HS PRN PRN Reason: Sleep Stop: 07/05/24 04:03 Last Admin: 06/05/24 04:17 Dose: 3 mg Documented By: FELICITAS Pantoprazole Sodium (Pantoprazole 40 Mg Tab) 40 mg PO DAILY ERNESTO Stop: 07/05/24 08:59 Last Admin: 06/05/24 09:10 Dose: 40 mg Documented By: DELFINA Discontinued Medications Dexamethasone (Dexamethasone Sod Inj 4 Mg/Ml Vial) 6 mg IV ONE ONE Stop: 06/04/24 23:46 Last Admin: 06/05/24 00:07 Dose: 6 mg Documented By: NIKITA Gadobutrol (Gadobutrol 15ml Vial) 11 ml IV ONCE ONE Stop: 06/05/24 00:48 Last Admin: 06/05/24 00:47 Dose: 11 ml Documented By: JOANN Hydralazine HCl (Hydralazine Hcl 20 Mg/Ml Vial) 10 mg IV NOW STA Stop: 06/04/24 20:55 Last Admin: 06/04/24 21:03 Dose: 10 mg Documented By: NIKITA Acetaminophen (Ofirmev) 1,000 mg in 100 mls @ 400 mls/hr IV NOW STA Stop: 06/04/24 21:08 Last Infusion: 06/04/24 22:09 Dose: Infused Documented By: Admin: 06/04/24 21:04 Dose: 400 mls/hr Documented By: NIKITA Sodium Chloride (Nss) 1,000 mls @ 999 mls/hr IV .Q1H1M ONE Stop: 06/04/24 21:54 Last Infusion: 06/04/24 22:31 Dose: Infused Documented By: Admin: 06/04/24 21:13 Dose: 999 mls/hr Documented By: NIKITA Acetazolamide 250 mg/ Syringe 2.5 mls @ 0.833 mls/min IV ONE STA Stop: 06/04/24 23:55 Last Admin: 06/05/24 01:37 Dose: 0.833 mls/min Documented By: VIC Dexamethasone 6 mg/ Syringe 1.5 mls @ 1 mls/min IV Q24H ERNESTO Stop: 07/05/24 05:29 Last Admin: 06/05/24 06:08 Dose: 1 mls/min Documented By: FELICITAS Acetazolamide 250 mg/ Syringe 2.5 mls @ 0.833 mls/min IV QAM STA Stop: 06/05/24 05:32 Last Admin: 06/05/24 06:08 Dose: 0.833 mls/min Documented By: FELICITAS Dexamethasone 6 mg/ Syringe 1.5 mls @ 1 mls/min IV ONE ONE Stop: 06/05/24 06:19 Last Admin: 06/05/24 07:48 Dose: Not Given Documented By: DELFINA Acetazolamide 250 mg/ Syringe 2.5 mls @ 0.833 mls/min IV ONE STA Stop: 06/05/24 06:42 Last Admin: 06/05/24 07:42 Dose: 0.833 mls/min Documented By: DELFINA Acetaminophen (Ofirmev) 1,000 mg in 100 mls @ 400 mls/hr IV NOW STA Stop: 06/05/24 06:33 Last Infusion: 06/05/24 07:15 Dose: Infused Documented By: Admin: 06/05/24 06:39 Dose: 400 mls/hr Documented By: FELICITAS Labetalol HCl (Labetalol Hcl Iv 5 Mg/Ml 20ml) 10 mg IV NOW STA Stop: 06/04/24 21:50 Last Admin: 06/04/24 22:09 Dose: 10 mg Documented By: NIKITA Lisinopril (Lisinopril 20 Mg Tab) 40 mg PO NOW STA Stop: 06/04/24 22:41 Last Admin: 06/04/24 22:50 Dose: 40 mg Documented By: NIKITA Lorazepam (Lorazepam 2 Mg/1 Ml Vial) 1 mg IV NOW STA Stop: 06/04/24 23:41 Last Admin: 06/05/24 00:08 Dose: 1 mg Documented By: NIKITA Morphine Sulfate (Morphine Sulfate 2 Mg/Ml Carp) 2 mg IV NOW STA Stop: 06/04/24 20:57 Last Admin: 06/04/24 21:03 Dose: 2 mg Documented By: NIKITA Ondansetron HCl (Ondansetron Inj 2 Mg/Ml 2 Ml Vial) 4 mg IV NOW STA Stop: 06/04/24 20:57 Last Admin: 06/04/24 21:03 Dose: 4 mg Documented By: NIKITA Ondansetron HCl (Ondansetron Inj 2 Mg/Ml 2 Ml Vial) 4 mg IV NOW STA Stop: 06/04/24 23:01 Last Admin: 06/04/24 23:05 Dose: 4 mg Documented By: NIKITA Imaging Data Radiologist's Impression: Chest X-Ray 06/04/24 19:22 Exam(s): XR CXR 1 VIEW EXAM: XR Chest, 1 View CLINICAL HISTORY: Reason for exam: Chest pain, nonspecific. TECHNIQUE: Frontal view of the chest. COMPARISON: Chest radiograph on 03/08/2019 FINDINGS: Hardware: None. Lungs/pleura: Normal. No focal consolidation. No pleural effusion or pneumothorax. Heart/mediastinum: Normal. No cardiomegaly. Soft tissues: Unremarkable. Bones: No acute fracture. Upper abdomen: Normal. IMPRESSION: No acute disease identified. Electronically signed by: Donna Casper M.D. 06/04/24 22:[address] 06/04/24 20:54 Exam(s): CT HEAD Without Contrast EXAM: CT Head Without Intravenous Contrast CLINICAL HISTORY: Reason for exam: SIMON vomiting. TECHNIQUE: Axial computed tomography images of the head/brain without intravenous contrast. CTDI is 35 mGy and DLP is 624 mGy-cm. Automated exposure control was utilized for the study. A dose lowering technique was utilized adhering to the principles of ALARA. COMPARISON: MRI brain on 04/21/2016 FINDINGS: Brain: No acute infarct or hemorrhage. No extra-axial fluid collection. No mass effect or midline shift. Ventricles and sulci: Normal. No ventriculomegaly or intraventricular hemorrhage. Bones: Normal. No bony lesion or acute fracture. Subcutaneous tissues: Normal. Sinuses: Mild mucosal thickening in the ethmoid air cells. Mastoid air cells: Normal. Orbits: Grossly unremarkable. IMPRESSION: No acute intracranial abnormality. Electronically signed by: Donna Casper M.D. 06/04/24 23:24 PM Discharge Plan Visit Data Chief Complaint: Vomiting Stated Complaint: VOMIT, SOB, CHEST PAIN, DIARRHEA ED Provider: Pat Milian Discharge Problem: Hypertensive urgency, Acute intractable headache, Vomiting Discharge Instructions Interventions: ED Discharge Assessment Last Done: 06/05/24 00:15 Discharge Problem: Acute intractable headache Qualifiers: Headache type: unspecified Qualified Code(s): R51.9 - Headache, unspecified Vomiting Qualifiers: Vomiting type: unspecified Nausea presence: with nausea Qualified Code(s): R 11.2 - Nausea with vomiting, unspecified
[2024-06-05] MEDS: LABETALOL HCL IV 5 MG/ML 20ML IV STA (12:25)
[2024-06-05] MEDS: NITROGLYCERIN 2% OINTMENT 30GM TUBE EXT ONE (13:24)
[2024-06-05] MEDS: hydrALAZINE HCL 20 MG/ML VIAL IV STA (13:25)
[2024-06-05] MEDS: KETOROLAC 30 MG/ML VIAL IV ONE (15:09)
[2024-06-05] MEDS: MAGNESIUM SULFATE / D5W 1 GM/100 ML BAG IV ONE (17:24)
[2024-06-05] MEDS ORDERED: VALPROATE SOD 250 MG in DEXTROSE 5% 50 ML IV PRN (17:26)
[2024-06-05] MEDS: MAGNESIUM SULFATE / D5W 1 GM/100 ML BAG IV STA (17:47)
[2024-06-05] MEDS: SODIUM CHLORIDE 0.9% 1,000 ML IV SCH (18:06)
[2024-06-05] MEDS ORDERED: INSULIN ASPART PER UNIT CHARGE SC STA (18:20)
[2024-06-05] MEDS: amLODIPine BESYLATE 5 MG TAB PO SCH (18:42)
--- NOTE | 2024-06-05 18:54 | Hospitalist Progress Note ---
Date of Service June 05, 2024 Assessment & Plan (1) Intractable headache: (2) Nausea and vomiting: (3) Blurred vision, bilateral: (4) Uncontrolled hypertension: (5) Papilloedema, unspecified: (6) Type 2 diabetes mellitus: Plan The patient is a 83-year-old female with a past medical history including pseudohyponatremia, vitamin D deficiency, diabetic foot ulcer, diabetes mellitus type 1, Charcot joint of foot, background diabetic retinopathy, history of papilledema, peripheral neuropathy. She has a significant history of diabetic gastroparesis, and felt that her symptoms of nausea, vomiting and headache may have been associated with a most recent episode of gastroparesis. From the emergency department she received several doses of medications including hydralazine, labetalol and lisinopril to help control elevated blood pressure. She also received morphine, Zofran, 1 L normal saline and Tylenol 1 g IV to help deal directly with headache. With no significant improvement, she was referred for evaluation for admission. Additional workup from the ED itself included a CT scan head which was negative, chest x-ray which was negative, and BioFire testing which was negative #Possible pseudotumor cerebri- Symptom complex of intractable headache, blurred vision, nausea and vomiting, morbid obesity and uncontrolled hypertension. Patient history reports notation of papilledema CT scan head was negative, bio fire testing was negative MRI of brain without acute findings Ophthalmoscopic examination with optic nerve heads was mild blurring of margins. Patient did not have any suggestion of hemorrhaging as reported by nursing Given dexamethasone 6 mg IV, and Diamox 250 mg IV BID Depakene PRN per neurology # Accelerated Hypertension Started on Norvasc, PRN labetalol # NAUSEA / Gastroparesis Reglan RTC for 4 doses #Diabetes mellitus- glargine 30 units subcu daily Placed on Accu-Cheks with NovoLog SSI #Hyperlipidemia- Continue simvastatin but dose needs decreased while on Norvasc #Peripheral neuropathy- Continue gabapentin 400 mg at bedtime #GERD- Continue pantoprazole Admission and Anticipated Discharge Date Admission Date: June 04, 2024 Subjective still with headache, nausea, poor BP control and glycemic control Physical Exam Physical Exam: The patient is awake, alert and oriented 3, well developed and well nourished, normocephalic and atraumatic, lying in bed and in no acute distress. HEENT--PERRL, EOMI, mucous membranes and oropharynx dry. Abdominal scopic exam with ONH mildly blurred. Negative Adrian Jared pupil Neck--supple. No JVD. No bruits. Thyroid normal, trachea midline, no adenopathy. Heart--normal S1 and S2. No murmurs, rubs or gallops. Lungs--clear bilaterally, no respiratory distress, no accessory muscle use. Abdomen--normal bowel sounds and soft. Nontender. Nondistended, no hernias or masses, no organomegaly. Extremities--no cyanosis or clubbing. No edema. Dermatologic--normal skin turgor, normal color, no abnormal lymph nodes, no rash. Neurologic--cranial nerves II through XII grossly intact. Rheumatologic--normal range of motion. Psychiatric--normal affect. Results & Data Results & Data Vital Signs (Past 12 Hours) Vital Signs Temp Pulse Pulse Resp BP BP BP 06/05/24 18:20 36.8 C 82 18 174/92 H 06/05/24 15:47 06/05/24 15:31 36.4 C L 97 H 18 177/98 H 06/05/24 13:07 89 221/120 H 06/05/24 12:25 93 H 207/114 H 06/05/24 11:56 94 H 14 216/120 H 06/05/24 07:24 98 H 20 207/115 H 06/05/24 07:14 106 H Pulse Ox O2 Del Method 06/05/24 18:20 92 Room Air 06/05/24 15:47 Room Air 06/05/24 15:31 93 Room Air 06/05/24 13:07 06/05/24 12:25 06/05/24 11:56 94 Room Air 06/05/24 07:24 94 Room Air 06/05/24 07:14 Laboratory Results reviewed Diagnostic Findings reviewed PG Care Time/CCT Total # of Minutes Spent Total Time Spent with Patient: Total time spent is greater than 50% in coordination of care (as documented) at patient's floor/unit and/or counseling patient: Coding Level of Care Code 56697 SUB INP/OBS CARE 2/35MIN Diagnoses Intractable tension-type headache, unspecified chronicity pattern G44.201 Headache type: tension-type Headache chronicity pattern: unspecified pattern Nausea and vomiting R11.2 Blurred vision, bilateral H53.8 Uncontrolled hypertension I10 Papilloedema, unspecified H47.10 Type 2 diabetes mellitus E11.9 (1) Intractable headache Headache type: tension-type Headache chronicity pattern: unspecified pattern Qualified Code(s): G44.201 - Tension-type headache, unspecified, intractable
[2024-06-05] MEDS: METOCLOPRAMIDE HCL INJ 5 MG/ML 2 ML VIAL IV SCH (19:21)
[2024-06-05] MEDS: ACETAMINOPHEN 325 MG TAB PO PRN (19:29)
[2024-06-05] MEDS: LABETALOL HCL IV 5 MG/ML 20ML IV PRN (20:27)
[2024-06-05] MEDS: GABAPENTIN 400 MG CAP PO SCH (20:29)
[2024-06-05] MEDS ORDERED: acetaZOLAMIDE 500 MG in SYRINGE 0 ML IV SCH (21:00)
[2024-06-05] MEDS ORDERED: SIMVASTATIN 40 MG TAB PO SCH (21:00)
[2024-06-05] MEDS: acetaZOLAMIDE 250 MG in SYRINGE 0 ML IV SCH (21:07)
--- NOTE | 2024-06-05 21:51 | Electrocardiogram Report ---
Test Reason : Blood Pressure : */* mmHG Vent. Rate : 99 BPM Atrial Rate : 99 BPM P-R Int : 134 ms QRS Dur : 78 ms QT Int : 340 ms P-R-T Axes : -9 16 51 degrees QTcB Int : 436 ms Normal sinus rhythm Minimal voltage criteria for LVH, may be normal variant ( R in aVL ) Cannot rule out Anterior infarct (cited on or before 19-Mar-2023) Abnormal ECG When compared with ECG of 19-Mar-2023 16:04, No significant change was found Confirmed by Joshua Rod ([id number]) on 06/05/2024 9:51:41 PM Referred By: REFERRED SELF Confirmed By: Joshua Rod
[2024-06-06] MEDS ORDERED: PHARMACY GLYCEMIC MGMT CONSULT PRN (05:00)
[2024-06-06 06:49] LABS: Basophils # (auto) 0.01 K/uL (0.00-0.20); Basophils % (auto) 0.2 %; Hematocrit (blood only) 33.9 % (37.0-47.0); Hemoglobin 11.6 g/dl (12.0-16.0); Immature Granulocytes # (auto) 0.06 K/uL (0.01-0.20); Immature Granulocytes % (auto) 0.9 %; Lymphocytes # (auto) 0.73 K/uL (1.20-3.40); Lymphocytes % (auto) 11.5 %; Mean Corpuscular Hemoglobin 28.6 pg (25.0-34.0); Mean Corpuscular Hgb Conc 34.2 g/dL (32.0-36.0); Mean Corpuscular Volume 83.5 fL (80.0-100.0); Mean Platelet Volume 10.4 fL (9.4-12.4); Monocytes # (auto) 0.43 K/uL (0.11-0.59); Monocytes % (auto) 6.8 %; Neutrophils # (auto) 5.14 K/uL (1.40-6.50); Neutrophils % (auto) 80.6 %; Platelet Count 225 K/uL (130-400); RDW Coefficient of Variation 14.7 % (11.5-14.5); RDW Standard Deviation 45.1 fL (36.4-46.3); Red Blood Count 4.06 M/uL (4.20-5.40); White Blood Count 6.37 K/ul (4.8-10.8)
[2024-06-06 07:21] LABS: Albumin Globulin Ratio 1.3 (0.9-2); Albumin Level 3.8 gm/dl (3.4-5.0); BUN Creatinine Ratio 23.1 (10-20); Bilirubin,Total 0.5 mg/dl (0.2-1.0); Creatinine Clr Calc Pharmacy 114.5 ml/min; Globulin 2.9 gm/dl (2.5-4.0); Magnesium 1.9 mg/dl (1.7-2.4); Potassium 3.7 mmol/L (3.5-5.1); Total Protein 6.7 gm/dl (6.0-8.3)
--- NOTE | 2024-06-06 07:45 | Hospitalist Progress Note ---
Date of Service June 06, 2024 Assessment & Plan (1) Intractable headache: (2) Nausea and vomiting: (3) Blurred vision, bilateral: (4) Uncontrolled hypertension: (5) Papilloedema, unspecified: (6) Type 2 diabetes mellitus: Plan The patient is a 53-year-old female with a past medical history including pseudohyponatremia, vitamin D deficiency, diabetic foot ulcer, diabetes mellitus type 1, Charcot joint of foot, background diabetic retinopathy, history of papilledema, peripheral neuropathy. She has a significant history of diabetic gastroparesis, and felt that her symptoms of nausea, vomiting and headache may have been associated with a most recent episode of gastroparesis. From the emergency department she received several doses of medications including hydralazine, labetalol and lisinopril to help control elevated blood pressure. She also received morphine, Zofran, 1 L normal saline and Tylenol 1 g IV to help deal directly with headache. With no significant improvement, she was referred for evaluation for admission. Additional workup from the ED itself included a CT scan head which was negative, chest x-ray which was negative, and BioFire testing which was negative #Acute on Chronic headache syndrome - CT scan head was negative, bio fire testing was negative - MRI of brain without acute findings - Ophthalmoscopic examination with optic nerve heads was mild blurring of margins. Patient did not have any suggestion of hemorrhaging as reported by nursing - on diamox - s/p IV mag - s/p IV decadron, currently on Diamox 250 mg IV BID - neurology recs appreciated valproic acid 250mg IV q8h PRN, and further evaluation of headache and pseudotumor cerebri as outpatient #Uncontrolled Hypertension - started on Norvasc, PRN labetalol - will add home lisinopril dose #Nausea / Gastroparesis - Reglan IV q6h x4 doses #Diabetes mellitus- - glargine 30 units subcu daily - Placed on Accu-Cheks with NovoLog SSI #Hyperlipidemia- - Continue simvastatin #Peripheral neuropathy- - added gabapentin 200mg qAM and cont gabapentin 400 mg at bedtime #GERD- - Continue pantoprazole Discharge pending BP control Admission and Anticipated Discharge Date Admission Date: June 04, 2024 Subjective No acute events overnight Headache returning to baseline Review of Systems Review of Systems: Comprehensive ROS neg Physical Exam Constitutional: Gen: NAD, sitting in chair comfortable HEENT: NC/AT, MMM Lungs: CTAB CVS: s1s2nl, RRR Abd: protuberant, soft, NT, nl bowel sounds Ext: trace b/l LE edema Results & Data Results & Data Vital Signs (Past 12 Hours) Vital Signs Temp Pulse Pulse Resp BP BP Pulse Ox 06/06/24 05:24 105 H 172/99 H 06/06/24 05:09 103 H 173/99 H 06/06/24 03:00 36.4 C 94 H 18 173/99 H 94 06/06/24 01:00 06/05/24 23:34 36.7 C 95 H 16 170/86 H 96 06/05/24 21:43 95 H 06/05/24 21:06 92 H 179/87 H 06/05/24 20:27 92 H 178/88 H 06/05/24 19:48 96 H 18 178/99 H 93 Pulse Ox O2 Del Method O2 Del Method 06/06/24 05:24 06/06/24 05:09 06/06/24 03:00 Room Air 06/06/24 01:00 96 Room Air 06/05/24 23:34 Room Air 06/05/24 21:43 06/05/24 21:06 06/05/24 20:27 06/05/24 19:48 Room Air PG Care Time/CCT Total # of Minutes Spent Total Time Spent with Patient: Total time spent is greater than 50% in coordination of care (as documented) at patient's floor/unit and/or counseling patient: Coding Level of Care Code 07396 SUB INP/OBS CARE 3/50MIN Diagnoses Intractable tension-type headache, unspecified chronicity pattern G44.201 Headache chronicity pattern: unspecified pattern Headache type: tension-type Nausea and vomiting R11.2 Blurred vision, bilateral H53.8 Uncontrolled hypertension I10 Papilloedema, unspecified H47.10 Type 2 diabetes mellitus E11.9 (1) Intractable headache Headache chronicity pattern: unspecified pattern Headache type: tension-type Qualified Code(s): G44.201 - Tension-type headache, unspecified, intractable
[2024-06-06] MEDS: GABAPENTIN 100 MG CAP PO SCH (09:45)
[2024-06-06] MEDS: LANTUS PER UNIT CHARGE SQ SCH (09:50)
--- NOTE | 2024-06-06 13:14 | Pharmacy Report ---
Pharmacy Glycemic Short Note 2 - Date of Service June 06, 2024 - Glycemic Short BSG Results (Last 24 hours): 06/05/24 06/05/24 06/05/24 16:14 16:16 16:18 Glucose POC Glucose 303 H* 336 H* 280 H 06/05/24 06/05/24 06/06/24 16:52 20:53 05:59 Glucose 316 H* 283 H POC Glucose 308 H* 06/06/24 06/06/24 07:36 12:10 Glucose POC Glucose 281 H 300 H OUTPATIENT ANTIDIABETIC REGIMEN: * Basaglar 55 units HS, Humalog 40 units w/meals + up to an additional 20 units per prescriptions * A1c 7.0% 06/04/24 ASSESSMENT: * Patient admitted with headache, htn, possible pseudotumor cerebri. Patient has type I diabetes with a history of gastroparesis, currently w/ nausea/vomiting. * BSGs elevated with dexamethasone 6 mg q12H currently ordered. It does not appear patient received any basal yesterday- dose ordered in AM was refused (pt typically takes in PM ? patient took home dose 06/04). * Fasting BSG 281 mg/dL despite not receiving basal yesterday- increase dose from initial order but still ~25% reduction from home dose; will increase tomorrow AM if still elevated * Tighten NovoLog parameters to weight stress of 3/ outpatient dose stress of 1- monitor for additional changes needed/ongoing steroid use * 0200 check PLAN FOR INPATIENT GLYCEMIC CONTROL: * Basal insulin * Lantus 40 units SQ x1- reassess in AM * Bolus insulin * NovoLog per scale ACHS or Q6hrs while NPO * Goal Range: Low 100 mg/dL - High 140 mg/dL * Correction Factor: 15 mg/dL/unit * Nutritional / Prandial insulin per carb ratio of 1 unit per 5 grams CHO consumed
[2024-06-06] MEDS: lisinopril 10 MG TAB PO SCH (16:26)
[2024-06-07] MEDS: INSULIN ASPART PER UNIT CHARGE SC ONE (05:13)
[2024-06-07] MEDS: INSULIN ASPART PER UNIT CHARGE SC SCH ×2 (05:19→08:36)
[2024-06-07 06:23] LABS: Hematocrit (blood only) 34.1 % (37.0-47.0); Hemoglobin 11.4 g/dl (12.0-16.0); Immature Granulocytes # (auto) 0.09 K/uL (0.01-0.20); Immature Granulocytes % (auto) 1.3 %; Lymphocytes # (auto) 0.63 K/uL (1.20-3.40); Lymphocytes % (auto) 8.8 %; Mean Corpuscular Hemoglobin 28.3 pg (25.0-34.0); Mean Corpuscular Hgb Conc 33.4 g/dL (32.0-36.0); Mean Corpuscular Volume 84.6 fL (80.0-100.0); Mean Platelet Volume 10.1 fL (9.4-12.4); Monocytes # (auto) 0.44 K/uL (0.11-0.59); Monocytes % (auto) 6.1 %; Neutrophils % (auto) 83.8 %; Platelet Count 232 K/uL (130-400); RDW Coefficient of Variation 14.8 % (11.5-14.5); RDW Standard Deviation 45.8 fL (36.4-46.3); Red Blood Count 4.03 M/uL (4.20-5.40); White Blood Count 7.16 K/ul (4.8-10.8)
[2024-06-07 06:37] LABS: Albumin Globulin Ratio 1.4 (0.9-2); Albumin Level 3.9 gm/dl (3.4-5.0); BUN Creatinine Ratio 28.7 (10-20); Bilirubin,Total 0.5 mg/dl (0.2-1.0); Creatinine Clr Calc Pharmacy 101.3 ml/min; Globulin 2.8 gm/dl (2.5-4.0); Magnesium 1.9 mg/dl (1.7-2.4); Total Protein 6.7 gm/dl (6.0-8.3)
[2024-06-07] MEDS ORDERED: Nursing to Pharmacy Communication SCH (07:30)
--- NOTE | 2024-06-07 07:31 | Ultrasound Report ---
EXAM: US duplex renal art/vein BI CLINICAL HISTORY: HX: NO PREV. HTN. TECH NOTES: EXAM LIMTED BY INCREASED BODY HABITUS, BMI 36.7. NO INCREASED VELOCITIES DETECTED, HOWEVER PROX LEFT RA NONVIS. RT KID: 11.6 cm. HIGHEST ARC RI: 0.67 RRV: PATENT SEEN. RRA PROX: 115.1 cm/s MID: 134.4 cm/s DIST: 118.6 cm/s LT KID: 11.3 cm. HIGHEST ARC RI: 0.66 LRV: PATENT SEEN. LRA PROX: NONVIS DUE TO OVERLYING BOWEL AND INCREASED BODY HABITUS MID: 97.8 cm/s DIST: 160.8 cm/s RT RAR: 1.1 LT RAR: 1.4. TECHNIQUE: Bilateral renal arterial duplex was performed. One or more of the following were performed- spectral analysis, resistive index, waveform analysis, and pulsed Doppler. COMPARISON: None. FINDINGS: Kidneys: Right kidney measures 11.6 cm in length. Left kidney measures 11.3 cm in length. No evidence of stones, cysts, or hydronephrosis bilaterally. Bilateral cortex and pelvis are normal in size. No other significant pathology seen. Perinephric fat, fluid and adrenal glands appears unremarkable. Aorta: Arotic PS is 117.7 cm/s Aortic ED is 23.4 cm/s Mid aorta diameter is within normal limits. No atherosclerotic changes throughout the visualized abdominal aorta. Renal Arteries: Parameter Right Renal Artery (RRA) Left Renal Artery (LRA) Proximal PSV/EDV (cm/sec) 115.1/30 - Mid PSV/EDV (cm/sec) 134.4/39.8 97.8/25.5 Distal PSV/EDV (cm/sec) 118.6/36.7 160.8/48.7 Resistive Index (RI) - Mid pole: 0.74 Renal Artery/Aorta Ratio (RAR) 1.1 1.4 Arcuate arteries PSV/EDV CM/S: Right side: Mid polar: 14.8/5.2 upper polar:16.4/5.4 Lower polar: 12.5/4.3 Left side: Mid polar: 15.2/5.2 lower polar:18.4/6.2 upper polar: 17.9/6.2 Reference data: 60% stenosis, RAR 3.1: 1, renal artery PSV 180 cm/s The renal artery/aorta ratio is within normal limits bilaterally. There is no detectable renal artery stenosis bilaterally. IMPRESSION: 1. No evidence of renal artery occlusive disease in both renal arteries. 2. Normal kidney size. Electronically signed by Raman Babb 06-07-2024 07:30 AM
--- NOTE | 2024-06-07 07:46 | Hospitalist Progress Note ---
Date of Service June 07, 2024 Assessment & Plan (1) Intractable headache: (2) Nausea and vomiting: (3) Blurred vision, bilateral: (4) Uncontrolled hypertension: (5) Papilloedema, unspecified: (6) Type 2 diabetes mellitus: Plan The patient is a 53-year-old female with a past medical history including pseudohyponatremia, vitamin D deficiency, diabetic foot ulcer, diabetes mellitus type 1, Charcot joint of foot, background diabetic retinopathy, history of papilledema, peripheral neuropathy. She has a significant history of diabetic gastroparesis, and felt that her symptoms of nausea, vomiting and headache may have been associated with a most recent episode of gastroparesis. From the emergency department she received several doses of medications including hydralazine, labetalol and lisinopril to help control elevated blood pressure. She also received morphine, Zofran, 1 L normal saline and Tylenol 1 g IV to help deal directly with headache. With no significant improvement, she was referred for evaluation for admission. Additional workup from the ED itself included a CT scan head which was negative, chest x-ray which was negative, and BioFire testing which was negative #Acute on Chronic headache syndrome - CT scan head was negative, bio fire testing was negative - MRI of brain without acute findings - Ophthalmoscopic examination with optic nerve heads was mild blurring of margins. Patient did not have any suggestion of hemorrhaging as reported by nursing - on diamox - s/p IV mag - s/p IV decadron, currently on Diamox 250 mg IV BID - neurology recs appreciated valproic acid 250mg IV q8h PRN, and further evaluation of headache and pseudotumor cerebri as outpatient #Uncontrolled Hypertension - started on Norvasc, PRN labetalol - will add home lisinopril dose, dose increased to 40mg - Renal artery duplex is unremarkable - discussed weight loss management , further discussion to be done with PCP #Nausea / Gastroparesis - Reglan IV q6h x4 doses #Diabetes mellitus- - glargine 30 units subcu daily - Placed on Accu-Cheks with NovoLog SSI #Hyperlipidemia- - Continue simvastatin #Peripheral neuropathy- - added gabapentin 200mg qAM and cont gabapentin 400 mg at bedtime #GERD- - Continue pantoprazole Discharge pending BP control Admission and Anticipated Discharge Date Admission Date: June 04, 2024 Subjective No acute events overnight Headache returning to baseline Review of Systems Review of Systems: Comprehensive ROS neg Physical Exam Physical Exam: Gen: NAD, sitting in chair comfortable HEENT: NC/AT, MMM Lungs: CTAB CVS: s1s2nl, RRR Abd: protuberant, soft, NT, nl bowel sounds Ext: trace b/l LE edema Results & Data Results & Data Vital Signs (Past 12 Hours) Vital Signs Temp Pulse Pulse Resp BP BP BP 06/07/24 07:38 198/90 H 06/07/24 07:24 36.6 C 82 18 198/102 H 190/98 H 06/07/24 01:00 06/06/24 21:01 91 H 174/95 H 06/06/24 20:00 06/06/24 20:00 36.5 C 86 20 189/96 H Pulse Ox Pulse Ox O2 Del Method O2 Del Method 06/07/24 07:38 06/07/24 07:24 95 Room Air 06/07/24 01:00 94 Room Air 06/06/24 21:01 06/06/24 20:00 Room Air 06/06/24 20:00 94 Room Air PG Care Time/CCT Total # of Minutes Spent Total Time Spent with Patient: Total time spent is greater than 50% in coordination of care (as documented) at patient's floor/unit and/or counseling patient: Coding Level of Care Code 65605 SUB INP/OBS CARE 3/50MIN Diagnoses Intractable tension-type headache, unspecified chronicity pattern G44.201 Headache chronicity pattern: unspecified pattern Headache type: tension-type Nausea and vomiting R11.2 Blurred vision, bilateral H53.8 Uncontrolled hypertension I10 Papilloedema, unspecified H47.10 Type 2 diabetes mellitus E11.9 (1) Intractable headache Headache chronicity pattern: unspecified pattern Headache type: tension-type Qualified Code(s): G44.201 - Tension-type headache, unspecified, intractable
[2024-06-07] MEDS: lisinopril 40 MG TAB PO SCH (08:36)
[2024-06-07] MEDS: LANTUS PER UNIT CHARGE SQ SCH (08:37)
[2024-06-07] MEDS ORDERED: LANTUS PER UNIT CHARGE SQ SCH ×2 (09:00)
[2024-06-07] MEDS ORDERED: INSULIN ASPART PER UNIT CHARGE SC SCH (11:30)
[2024-06-07] MEDS: DOCUSATE SODIUM/SENNA 50/8.6MG TAB PO SCH (13:11)
--- NOTE | 2024-06-07 14:31 | Pharmacy Report ---
Pharmacy Glycemic Short Note 2 - Date of Service June 07, 2024 - Glycemic Short BSG Results (Last 24 hours): 06/06/24 06/06/24 06/07/24 16:19 20:33 04:56 Glucose POC Glucose 289 H 308 H* 241 H 06/07/24 06/07/24 06/07/24 05:31 07:22 11:10 Glucose 231 H POC Glucose 217 H 221 H OUTPATIENT ANTIDIABETIC REGIMEN: * Basaglar 55 units HS, Humalog 40 units w/meals + up to an additional 20 units per prescriptions * A1c 7.0% 06/04/24 ASSESSMENT: 06/07 * Patient received 82 units of insulin yesterday, 40 units of which were basal. BSGs [phone]/dL * Fasting this AM 217 mg/dL- will increase basal dose today to 50 units- 25% increase * Dexamethasone was discontinued after AM dose, tightened carb ratio as dex will still be active but reassess trend tomorrow. 06/06 * Patient admitted with headache, htn, possible pseudotumor cerebri. Patient has type I diabetes with a history of gastroparesis, currently w/ nausea/vomiting. * BSGs elevated with dexamethasone 6 mg q12H currently ordered. It does not appear patient received any basal yesterday- dose ordered in AM was refused (pt typically takes in PM ? patient took home dose 06/04). * Fasting BSG 281 mg/dL despite not receiving basal yesterday- increase dose from initial order but still ~25% reduction from home dose; will increase tomorrow AM if still elevated * Tighten NovoLog parameters to weight stress of 3/ outpatient dose stress of 1- monitor for additional changes needed/ongoing steroid use * 0200 check PLAN FOR INPATIENT GLYCEMIC CONTROL: * Basal insulin * Lantus 50 units SQ qAm- reassess in AM * Bolus insulin * NovoLog per scale ACHS or Q6hrs while NPO * Goal Range: Low 100 mg/dL - High 140 mg/dL * Correction Factor: 15 mg/dL/unit * Nutritional / Prandial insulin per carb ratio of 1 unit per 4 grams CHO consumed
--- NOTE | 2024-06-07 17:47 | Nephrology Consultation ---
Date of Consultation June 07, 2024 Assessment & Plan (1) Hypertension: (2) Type 2 diabetes mellitus: (3) Gastroenteritis: Plan Patient admitted due to gastroenteritis complicated by hypertensive urgency. GI issues have resolved with conservative therapy. Patient is now back on oral antihypertensive medication. Primary service is titrated JENNI inhibitor to maximum dose and yesterday added amlodipine. Blood pressure has improved but still remains elevated. Patient currently appears clinically euvolemic. She has no prior history of CKD, endocrine disorder or peripheral vascular disease. She appears clinically euthyroid and denies any signs or symptoms of pheochrom ocytoma. Renal artery Doppler completed this admission was negative for stenosis. Patient does not have significant electrolyte abnormalities such as hypokalemia. Clinically suspect essential hypertension that has been longstanding and difficult to control. Agree with JENNI and CCB therapy. Suspect patient would benefit from addition of low-dose loop diuretic therapy. Because she appears clinically euvolemic at this time we will add in furosemide 20 mg daily. Continue to monitor blood pressure closely. Will recheck BMP and urinalysis with UACR in AM. History of Present Illness Reason for Consultation: HTN Attending Physician: Lyndsey Eng MD History of Present Illness Mrs. Burton is a 53-year-old white female who is seen at the request of [facility] hospitalist service for evaluation of hypertension. Information for the HPI is obtained from direct patient interview and review of the EMR. HPI summarized as follows: Mrs. Burton is a longstanding history of essential hypertension. In the past this has been managed with lisinopril 30 mg once each day. Review of the EMR shows broad fluctuation in her blood pressure. The patient states that she has not been checking it on a regular basis at home but during prior visits to her PCP the blood pressure has been controlled with a single agent. Mrs. Burton presented to [facility] 06/04/2024 for evaluation of gastroenteritis. She had recurrent nausea and vomiting. Systolic blood pressure was 213 mmHg at the time of presentation. Patient was managed with intravenous labetalol and hydralazine. Lisinopril was held due to dehydration. She was provided with gentle hydration. Over the next 2 days lisinopril was added back to her medical regimen and titrated to 40 mg daily. Amlodipine was subsequently added and increased to 10 mg once each day. Blood pressure remains elevated at 160-170 mmHg. Renal artery Doppler was completed this morning. This revealed normal-sized kidneys and patent renal arteries bilaterally. The patient denies any prior hospitalization due to hypertensive urgency. She does not use NSAIDs or herbal supplements on a regular basis. She has not yet instituted a low-sodium diet. The patient denies any prior history of thyroid disease or CKD. She has never been hospitalized for any severe electrolyte disorders such as hypokalemia. She currently denies headache, visual change, angina. Her nausea and vomiting have resolved. PMH: AODM, h/o DKA, HTN, pseudohyponatremia, dyslipidemia Allergies Allergy/AdvReac Type Severity Reaction Status Date / Time No Known Allergies Allergy Unknown Verified 06/05/24 00:10 Home Medications Medication Instructions Recorded Confirmed Type pen needle, diabetic 31 gauge x #400 ea 04/08/20 10/05/23 Rx 5/16" (Comfort EZ Pen [place]) flash glucose sensor (FreeStyle #1 ea 05/08/20 10/05/23 Rx Greer 14 Day Sensor kit) blood sugar diagnostic (OviceversaTouch #400 ea 06/02/21 10/05/23 Rx Verio test strips) blood-glucose meter (OneTouch #1 ea 06/02/21 10/05/23 Rx Verio Flex Start kit) lancets 33 gauge (OneTouch Delica #400 ea 06/02/21 10/05/23 Rx Lancets) diclofenac sodium 1 % topical gel 4 g topical QID PRN Pain 06/23/22 06/04/24 History Humalog KwikPen Insulin 100 See Rx Instructions .Route 10/03/23 06/05/24 Rx unit/mL subcutaneous (insulin .COMPLEX #45 mL lispro) gabapentin 400 mg capsule 400 mg PO HS #90 caps 10/03/23 06/04/24 Rx simvastatin 40 mg tablet 40 mg PO QPM #90 tabs 10/03/23 06/04/24 Rx aspirin 325 mg tablet 325 mg PO DAILY 10/05/23 06/05/24 History furosemide 20 mg tablet (Lasix) 20 mg PO DAILY PRN edema #90 tabs 10/05/23 06/04/24 Rx lisinopril 30 mg tablet 30 mg PO DAILY #30 tabs 10/05/23 06/04/24 Rx metoclopramide HCl 5 mg tablet 5 mg PO DAILY #90 tabs 10/05/23 06/04/24 Rx (Reglan) magnesium oxide 400 mg (241.3 mg 400 mg PO DAILY #90 tabs 02/21/24 06/04/24 Rx magnesium) tablet pantoprazole 40 mg tablet,delayed 40 mg PO DAILY #90 tabs 03/11/24 06/05/24 Rx release insulin glargine 100 unit/mL (3 55 unit (0.55 mL) subcut QPM #15 mL 05/07/24 06/04/24 Rx mL) subcutaneous pen, sensor (Basaglar Tempo Pen (U-100) Insulin) Patient History Medical History Benign essential hypertension Diabetic foot ulcers DKA (diabetic ketoacidosis) Cataract, bilateral Depression Grief at loss of child Dyslipidemia Diabetic peripheral neuropathy associated with type 1 diabetes mellitus Degenerative joint disease Allergic rhinitis Osteoarthritis Tachycardia Pneumonia Surgical History H/O carpal tunnel repair History of total right hip arthroplasty S/P hip replacement Family History Mother Stroke Sister Arthritis Aunt Breast cancer Uncle Diabetes Social History Smoking Status: Never smoker Second Hand Exposure: No; Do You Dip or Chew Tobacco: No; Hx Alcohol Use: Yes Alcohol type: hard liquor Hx Substance Use: Yes Last Used Substance: Just Prior to Arrival Preferred Language: Peruvian Communication Ability: Effective Visual Impairment: Severely Limited Hearing Ability: Normal Interchange Agent Required: No Beliefs That Will Affect Care: None marital status: Current Living Situation: Spouse Current Living Situation Comment: lives with /2 kids; 1 story; 4 steps/railing to enter current occupational status: employed 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 Feels Safe at Home: Yes Diet: regular Assistive Devices: None Review of Systems Constitutional: no fever Eyes: no problem reported Ear, Nose, Mouth, Throat: no problem reported Respiratory: no cough and no dyspnea Cardiovascular: no chest pain Gastrointestinal: no abdominal pain, no nausea, no vomiting and no diarrhea/loose stools Genitourinary: no dysuria and no hematuria Integumentary: no rash Physical Exam Constitutional: not in distress Eyes: PERRL, conjunctivae normal, anicteric sclerae ENMT: external ear and nose normal, oropharynx normal Neck: trachea midline, no thyromegaly Respiratory: normal respiratory effort, lungs clear to auscultation Cardiovascular: RRR, no murmur, no edema Gastrointestinal (Abdomen): normal bowel sounds, soft, nontender, no hepatosplenomegaly Skin: no rashes, warm and dry normal turgor Neurologic: not confused Results & Data Vital Signs (Past 12 Hours) Vital Signs Temp Pulse Pulse Resp BP BP BP 06/07/24 15:59 36.5 C 86 18 171/89 H 06/07/24 13:35 80 06/07/24 11:12 36.4 C L 74 18 172/101 H 161/93 H 06/07/24 08:51 85 175/92 H 06/07/24 07:38 198/90 H 06/07/24 07:24 36.6 C 82 18 198/102 H 190/98 H Pulse Ox O2 Del Method 06/07/24 15:59 95 Room Air 06/07/24 13:35 06/07/24 11:12 97 Room Air 06/07/24 08:51 06/07/24 07:38 06/07/24 07:24 95 Room Air Laboratory Results Laboratory Results WBC 7.16 K/ul (4.8-10.8) 06/07/24 05:31 RBC 4.03 M/uL (4.20-5.40) L 06/07/24 05:31 Hgb 11.4 g/dl (12.0-16.0) L 06/07/24 05:31 Hct 34.1 % (37.0-47.0) L 06/07/24 05:31 MCV 84.6 fL (80.0-100.0) 06/07/24 05:31 MCH 28.3 pg (25.0-34.0) 06/07/24 05:31 MCHC 33.4 g/dL (32.0-36.0) 06/07/24 05:31 RDW Std Deviation 45.8 fL (36.4-46.3) 06/07/24 05:31 RDW Coeff of Benny 14.8 % (11.5-14.5) H 06/07/24 05:31 Plt Count 232 K/uL (130-400) 06/07/24 05:31 MPV 10.1 fL (9.4-12.4) 06/07/24 05:31 Immature Gran % (Auto) 1.3 % 06/07/24 05:31 Neut % (Auto) 83.8 % 06/07/24 05:31 Lymph % (Auto) 8.8 % 06/07/24 05:31 [place] % (Auto) 6.1 % 06/07/24 05:31 Eos % (Auto) 0.0 % 06/07/24 05:31 Baso % (Auto) 0.0 % 06/07/24 05:31 Neut # (Auto) 6.00 K/uL (1.40-6.50) 06/07/24 05:31 Lymph # (Auto) 0.63 K/uL (1.20-3.40) L 06/07/24 05:31 [place] # (Auto) 0.44 K/uL (0.11-0.59) 06/07/24 05:31 Eos # (Auto) 0.00 K/uL (0.00-0.50) 06/07/24 05:31 Baso # (Auto) 0.00 K/uL (0.00-0.20) 06/07/24 05:31 Immature Gran # (Auto) 0.09 K/uL (0.01-0.20) 06/07/24 05:31 ESR 28 mm/hr (0-30) 06/04/24 19:29 PT 10.4 Seconds (9.0-12.0) 06/04/24 19:29 INR 1.0 (0.9-1.1) 06/04/24 19:29 APTT 28 Seconds (21-31) 06/04/24 19:29 PTT Ratio 1.0 06/04/24 19:29 Sodium 135 mmol/L (136-145) L 06/07/24 05:31 Potassium 4.0 mmol/L (3.5-5.1) 06/07/24 05:31 Chloride 108 mmol/L (98-107) H 06/07/24 05:31 Carbon Dioxide 19 mmol/L (21-32) L 06/07/24 05:31 Anion Gap 8 (3-11) 06/07/24 05:31 BUN 25 mg/dl (6-23) H 06/07/24 05:31 Creatinine 0.87 mg/dl (0.6-1.2) 06/07/24 05:31 Est Cr Clr Drug Dosing 101.3 ml/min 06/07/24 05:31 eGFR 80.11 06/07/24 05:31 BUN/Creatinine Ratio 28.7 (10-20) H 06/07/24 05:31 Glucose 231 mg/dl (70-99(Fasting)) H 06/07/24 05:31 POC Glucose 280 mg/dl (70-99) H 06/07/24 16:03 Estimat Average Glucose 154 mg/dl 06/04/24 19:29 Hemoglobin A1c 7.0 % (4.5-5.6) H 06/04/24 19:29 Calcium 9.0 mg/dl (8.6-10.3) 06/07/24 05:31 Magnesium 1.9 mg/dl (1.7-2.4) 06/07/24 05:31 Total Bilirubin 0.5 mg/dl (0.2-1.0) 06/07/24 05:31 AST 8 U/L (13-39) L 06/07/24 05:31 ALT 8 U/L (7-52) 06/07/24 05:31 Alkaline Phosphatase 62 U/L (34-104) 06/07/24 05:31 Troponin I High Sens 10.4 pg/ml (0-14) 06/04/24 19:29 Total Protein 6.7 gm/dl (6.0-8.3) 06/07/24 05:31 Albumin 3.9 gm/dl (3.4-5.0) 06/07/24 05:31 Globulin 2.8 gm/dl (2.5-4.0) 06/07/24 05:31 Albumin/Globulin Ratio 1.4 (0.9-2) 06/07/24 05:31 Vitamin B12 502 pg/ml (180-914) 06/04/24 19:29 Folate > 22.30 ng/ml (>5.38) 06/04/24 19:29 Adenovirus (PCR) Not Detected (NotDetected) 06/04/24 19:29 Anaplasma Smear See Comment 06/04/24 19:29 Babesia Smear See Comment 06/04/24 19:29 B. pertussis DNA (PCR) Not Detected (NotDetected) 06/04/24 19:29 B.parapertussis DNA PCR Not Detected (NotDetected) 06/04/24 19:29 Lyme Disease Screen Negative (Negative) 06/04/24 19:29 C. pneumoniae DNA (PCR) Not Detected (NotDetected) 06/04/24 19:29 Coronavirus OC43 (PCR) Not Detected (NotDetected) 06/04/24 19:29 Coronavirus HKU1 (PCR) Not Detected (NotDetected) 06/04/24 19:29 Coronavirus 229E (PCR) Not Detected (NotDetected) 06/04/24 19:29 SARS-CoV-2 (PCR) Not Detected (NotDetected) 06/04/24 19:29 Coronavirus NL63 (PCR) Not Detected (NotDetected) 06/04/24 19:29 Human Metapneumovir PCR Not Detected (NotDetected) 06/04/24 19:29 Influenza Type A (PCR) Not Detected (NotDetected) 06/04/24 19:29 Influenza Type B (PCR) Not Detected (NotDetected) 06/04/24 19:29 M. pneumoniae (PCR) Not Detected (NotDetected) 06/04/24 19:29 Parainfluenza 1 (PCR) Not Detected (NotDetected) 06/04/24 19:29 Parainfluenza 2 (PCR) Not Detected (NotDetected) 06/04/24 19:29 Parainfluenza 3 (PCR) Not Detected (NotDetected) 06/04/24 19:29 Parainfluenza 4 (PCR) Not Detected (NotDetected) 06/04/24 19:29 RSV (PCR) Not Detected (NotDetected) 06/04/24 19:29 Entero/Rhino (PCR) Not Detected (NotDetected) 06/04/24 19:29 Impressions Chest X-Ray 06/04/24 19:22 Exam(s): XR CXR 1 VIEW EXAM: XR Chest, 1 View CLINICAL HISTORY: Reason for exam: Chest pain, nonspecific. TECHNIQUE: Frontal view of the chest. COMPARISON: Chest radiograph on 03/08/2019 FINDINGS: Hardware: None. Lungs/pleura: Normal. No focal consolidation. No pleural effusion or pneumothorax. Heart/mediastinum: Normal. No cardiomegaly. Soft tissues: Unremarkable. Bones: No acute fracture. Upper abdomen: Normal. IMPRESSION: No acute disease identified. Electronically signed by: Donna Casper M.D. 06/04/24 22:[address] 06/04/24 20:54 Exam(s): CT HEAD Without Contrast EXAM: CT Head Without Intravenous Contrast CLINICAL HISTORY: Reason for exam: SIMON vomiting. TECHNIQUE: Axial computed tomography images of the head/brain without intravenous contrast. CTDI is 35 mGy and DLP is 624 mGy-cm. Automated exposure control was utilized for the study. A dose lowering technique was utilized adhering to the principles of ALARA. COMPARISON: MRI brain on 04/21/2016 FINDINGS: Brain: No acute infarct or hemorrhage. No extra-axial fluid collection. No mass effect or midline shift. Ventricles and sulci: Normal. No ventriculomegaly or intraventricular hemorrhage. Bones: Normal. No bony lesion or acute fracture. Subcutaneous tissues: Normal. Sinuses: Mild mucosal thickening in the ethmoid air cells. Mastoid air cells: Normal. Orbits: Grossly unremarkable. IMPRESSION: No acute intracranial abnormality. Electronically signed by: Donna Casper M.D. 06/04/24 23:24 PM Brain MRI 06/05/24 00:00 EXAM: MR brain wo/w con CLINICAL HISTORY: No complaints from PT, has been having vomiting and headaches, was told by Dr. Kim that she might have bleeding behind the optic nerve or on her brain, no injury, PT very claustrophobic, was given Ativan before MRI scan, ran propellers to help with motion, sent to [facility] TECHNIQUE: MRI of the brain was performed with and without 11mL Gadavist intravenous contrast administration. Sequences obtained include pre-contrast and post-contrast T1-weighted, T2-weighted, FLAIR (Fluid-Attenuated Inversion Recovery), DWI (Diffusion-Weighted Imaging), and ADC (Apparent Diffusion Coefficient) sequences. COMPARISON: 04/21/2016 FINDINGS: Brain Parenchyma: No evidence of extra-axial or intracerebral bleeds. Few blooming artifacts are noted behind the greater wing of sphenoid bone on T2* images , likely artifacts rather than bleeds. No evidence of acute infarction or hemorrhage. Matthews-white matter differentiation is preserved. No abnormal signal intensity lesions identified. Post-Contrast Findings: No abnormal enhancement of the brain parenchyma or meninges. Ventricles and Sulci: Ventricular system is within normal limits without evidence of hydrocephalus. Sulci and cisternal spaces are age-appropriate. Brainstem and Cerebellum: Normal appearance of the brainstem and cerebellum without focal lesions or abnormal enhancement. Vessels: Intracranial vessels appear normal without evidence of vascular malformations or aneurysms. Skull and Calvarium: No evidence of skull vault lesions or abnormal marrow signal within the calvarium. IMPRESSION: 1. No evidence of acute intracranial pathology or abnormal contrast enhancement. 2. No evidence of extra-axial or intracerebral bleeds. Few blooming artifacts are noted behind the greater wing of sphenoid bones on T2* images, , likely artifacts rather than bleeds. If clinically warranted, CT would also help exclude the possiblity of hematomas. 3. No significant interval changes. Electronically signed by Raman Babb 06-05-2024 02:37 AM Renal Artery Duplex 06/07/24 00:00 EXAM: US duplex renal art/vein BI CLINICAL HISTORY: HX: NO PREV. HTN. TECH NOTES: EXAM LIMTED BY INCREASED BODY HABITUS, BMI 36.7. NO INCREASED VELOCITIES DETECTED, HOWEVER PROX LEFT RA NONVIS. RT KID: 11.6 cm. HIGHEST ARC RI: 0.67 RRV: PATENT SEEN. RRA PROX: 115.1 cm/s MID: 134.4 cm/s DIST: 118.6 cm/s LT KID: 11.3 cm. HIGHEST ARC RI: 0.66 LRV: PATENT SEEN. LRA PROX: NONVIS DUE TO OVERLYING BOWEL AND INCREASED BODY HABITUS MID: 97.8 cm/s DIST: 160.8 cm/s RT RAR: 1.1 LT RAR: 1.4. TECHNIQUE: Bilateral renal arterial duplex was performed. One or more of the following were performed- spectral analysis, resistive index, waveform analysis, and pulsed Doppler. COMPARISON: None. FINDINGS: Kidneys: Right kidney measures 11.6 cm in length. Left kidney measures 11.3 cm in length. No evidence of stones, cysts, or hydronephrosis bilaterally. Bilateral cortex and pelvis are normal in size. No other significant pathology seen. Perinephric fat, fluid and adrenal glands appears unremarkable. Aorta: Arotic PS is 117.7 cm/s Aortic ED is 23.4 cm/s Mid aorta diameter is within normal limits. No atherosclerotic changes throughout the visualized abdominal aorta. Renal Arteries: Parameter Right Renal Artery (RRA) Left Renal Artery (LRA) Proximal PSV/EDV (cm/sec) 115.1/30 - Mid PSV/EDV (cm/sec) 134.4/39.8 97.8/25.5 Distal PSV/EDV (cm/sec) 118.6/36.7 160.8/48.7 Resistive Index (RI) - Mid pole: 0.74 Renal Artery/Aorta Ratio (RAR) 1.1 1.4 Arcuate arteries PSV/EDV CM/S: Right side: Mid polar: 14.8/5.2 upper polar:16.4/5.4 Lower polar: 12.5/4.3 Left side: Mid polar: 15.2/5.2 lower polar:18.4/6.2 upper polar: 17.9/6.2 Reference data: 60% stenosis, RAR 3.1: 1, renal artery PSV 180 cm/s The renal artery/aorta ratio is within normal limits bilaterally. There is no detectable renal artery stenosis bilaterally. IMPRESSION: 1. No evidence of renal artery occlusive disease in both renal arteries. 2. Normal kidney size. Electronically signed by Raman Babb 06-07-2024 07:30 AM PG Care Time/CCT Total # of Minutes Spent Total Time Spent with Patient: Total time spent is greater than 50% in coordination of care (as documented) at patient's floor/unit and/or counseling patient: Coding Level of Care Code 85233 IN/OBS CONSULT LVL 5,80M Diagnoses Hypertension I10 Type 2 diabetes mellitus E11.9 Gastroenteritis K52.9
[2024-06-07] MEDS: FUROSEMIDE 20 MG TAB PO SCH (18:44)
[2024-06-07] MEDS: CHLORTHALIDONE 25 MG TAB PO SCH (18:51)
[2024-06-07] MEDS: MELATONIN 3 MG TAB PO PRN (21:17)
[2024-06-08 07:27] VITALS: RESP 18
[2024-06-08 07:29] LABS: Hematocrit (blood only) 34.6 % (37.0-47.0); Hemoglobin 11.6 g/dl (12.0-16.0); Mean Corpuscular Hgb Conc 33.5 g/dL (32.0-36.0); Mean Corpuscular Volume 83.6 fL (80.0-100.0); Mean Platelet Volume 9.9 fL (9.4-12.4); Platelet Count 266 K/uL (130-400); RDW Coefficient of Variation 14.8 % (11.5-14.5); RDW Standard Deviation 44.9 fL (36.4-46.3); Red Blood Count 4.14 M/uL (4.20-5.40); White Blood Count 8.32 K/ul (4.8-10.8)
[2024-06-08 08:06] LABS: BUN Creatinine Ratio 34.8 (10-20); Calcium 8.9 mg/dl (8.6-10.3); Creatinine Clr Calc Pharmacy 99.1 ml/min; Magnesium 1.9 mg/dl (1.7-2.4); Phosphorus 4.1 mg/dl (2.5-4.9); Potassium 3.6 mmol/L (3.5-5.1)
[2024-06-08 08:22] LABS: Thyroid Stimulating Hormone 0.479 uIu/ml (0.300-4.500)
--- NOTE | 2024-06-08 09:06 | Nephrology Progress Note ---
Date of Service June 08, 2024 Assessment & Plan (1) Hypertension: Plan: * Essential hypertension * Normal TSH, preserved renal function, renal artery duplex negative for stenosis * Patient tolerating JENNI inhibitor, CCB without cough or orthostasis. * Low-dose diuretic added yesterday. She is tolerating this well without orthostasis or muscle cramping. * SBP has improved to 140-160 mmHg * Continue current medical regimen. Patient may follow-up with PCP as outpa tient * May need further adjustment to medications (increase furosemide vs add spironolactone) as outpatient. Target SBP 130 mmHg or less * Will ask dietitian to provide education on 1500 mg/day sodium restricted diet (2) Gastroenteritis: Plan: * Resolved (3) Type 2 diabetes mellitus: Admission and Anticipated Discharge Date Admission Date: June 04, 2024 Subjective Mrs. Burton was evaluated in her hospital room this morning. She currently denies to headache, visual change, angina or dyspnea. She indicated that she is tolerating furosemide therapy without orthostasis or leg cramping. She voices no new medical concerns. She is hopeful to return home soon. Review of Systems Constitutional: no fever Eyes: no problem reported Ear, Nose, Mouth, Throat: no problem reported Respiratory: no cough and no dyspnea Cardiovascular: no chest pain Gastrointestinal: no abdominal pain, no nausea, no vomiting and no diarrhea/loose stools Genitourinary: no dysuria and no hematuria Integumentary: no rash Physical Exam Constitutional: not in distress Eyes: PERRL, conjunctivae normal, anicteric sclerae ENMT: external ear and nose normal, oropharynx normal Neck: trachea midline, no thyromegaly Respiratory: normal respiratory effort, lungs clear to auscultation Cardiovascular: RRR, no murmur, no edema Gastrointestinal (Abdomen): normal bowel sounds, soft, nontender, no hepatosplenomegaly Skin: no rashes, warm and dry normal turgor Neurologic: not confused Results & Data Vital Signs (Past 12 Hours) Vital Signs Temp Pulse Pulse Resp BP BP BP 06/08/24 07:21 36.5 C 86 18 168/96 H 06/08/24 06:35 78 141/79 H 06/08/24 06:35 78 141/79 H 06/08/24 06:20 78 164/91 H 06/08/24 06:00 36.6 C 78 20 164/91 H 06/07/24 22:10 37.0 C 94 H 20 151/88 H Pulse Ox O2 Del Method 06/08/24 07:21 96 Room Air 06/08/24 06:35 06/08/24 06:35 06/08/24 06:20 06/08/24 06:00 95 Room Air 06/07/24 22:10 95 Room Air Laboratory Results Laboratory Results - last 24 hr 06/07/24 06/07/24 06/07/24 11:10 16:03 21:02 WBC RBC Hgb Hct MCV MCH MCHC RDW Std Deviation RDW Coeff of Benny Plt Count MPV Sodium Potassium Chloride Carbon Dioxide Anion Gap BUN Creatinine Est Cr Clr Drug Dosing eGFR BUN/Creatinine Ratio Glucose POC Glucose 221 H 280 H 211 H Calcium Phosphorus Magnesium TSH 06/08/24 06/08/24 06:38 07:22 WBC 8.32 RBC 4.14 L Hgb 11.6 L Hct 34.6 L MCV 83.6 MCH 28.0 MCHC 33.5 RDW Std Deviation 44.9 RDW Coeff of Benny 14.8 H Plt Count 266 MPV 9.9 Sodium 136 Potassium 3.6 Chloride 106 Carbon Dioxide 23 Anion Gap 7 BUN 31 H Creatinine 0.89 Est Cr Clr Drug Dosing 99.1 eGFR 77.96 BUN/Creatinine Ratio 34.8 H Glucose 143 H POC Glucose 155 H Calcium 8.9 Phosphorus 4.1 Magnesium 1.9 TSH 0.479 PG Care Time/CCT Total # of Minutes Spent Total Time Spent with Patient: Total time spent is greater than 50% in coordination of care (as documented) at patient's floor/unit and/or counseling patient: Coding Level of Care Code 32208 SUB INP/OBS CARE 3/50MIN Diagnoses Hypertension I10 Gastroenteritis K52.9 Type 2 diabetes mellitus E11.9
[2024-06-08 11:15] VITALS: PULSE 92; TEMP 97.9; O2SAT 95
[2024-06-08] MEDS: LANTUS PER UNIT CHARGE SQ ONE (12:04)
[2024-06-08 13:33] VITALS: BP 158/80
--- NOTE | 2024-06-08 14:37 | Discharge Summary ---
Discharge Summary Date of Service June 08, 2024 Principal Dx & Hospital Course #1 = Principal Diagnosis (1) Intractable headache: (2) Nausea and vomiting: (3) Blurred vision, bilateral: (4) Uncontrolled hypertension: (5) Papilloedema, unspecified: (6) Type 2 diabetes mellitus: Plan The patient is a 53-year-old female with a past medical history including pseudohyponatremia, vitamin D deficiency, diabetic foot ulcer, diabetes mellitus type 1, Charcot joint of foot, background diabetic retinopathy, history of papilledema, peripheral neuropathy. She has a significant history of diabetic gastroparesis, and felt that her symptoms of nausea, vomiting and headache may have been associated with a most recent episode of gastroparesis. From the emergency department she received several doses of medications including hydr alazine, labetalol and lisinopril to help control elevated blood pressure. She also received morphine, Zofran, 1 L normal saline and Tylenol 1 g IV to help deal directly with headache. With no significant improvement, she was referred for evaluation for admission. Additional workup from the ED itself included a CT scan head which was negative, chest x-ray which was negative, and BioFire testing which was negative #Acute on Chronic headache syndrome - CT scan head was negative, bio fire testing was negative - MRI of brain without acute findings - Ophthalmoscopic examination with optic nerve heads was mild blurring of margins. Patient did not have any suggestion of hemorrhaging as reported by nursing - on diamox cont on discharge per neurology recs - s/p IV mag - s/p IV decadron - neurology recs appreciated valproic acid 250mg IV q8h PRN, and further evaluation of headache and pseudotumor cerebri as outpatient #Uncontrolled Hypertension - improved with lisinopril, amlodipine, and lasix - nephrology recs appreciated - Renal artery duplex is unremarkable - discussed weight loss management , further discussion to be done with PCP #Nausea / Gastroparesis - Reglan IV q6h x4 doses #Diabetes mellitus- - glargine 30 units subcu daily - Placed on Accu-Cheks with NovoLog SSI #Hyperlipidemia- - Continue simvastatin #Peripheral neuropathy- - added gabapentin 200mg qAM and cont gabapentin 400 mg at bedtime #GERD- - Continue pantoprazole Admission HPI Per Admitting Provider The patient is a 83-year-old female with a past medical history including pseudohyponatremia, vitamin D deficiency, diabetic foot ulcer, diabetes mellitus type 1, Charcot joint of foot, background diabetic retinopathy, history of papilledema, peripheral neuropathy. She has a significant history of diabetic gastroparesis, and felt that her symptoms of nausea, vomiting and headache may have been associated with a most recent episode of gastroparesis. From the emergency department she received several doses of medications including hydralazine, labetalol and lisinopril to help control elevated blood pressure. She also received morphine, Zofran, 1 L normal saline and Tylenol 1 g IV to help deal directly with headache. With no significant improvement, she was referred for evaluation for admission. Additional workup from the ED itself included a CT scan head which was negative, chest x-ray which was negative, and BioFire testing which was negative Discharge Exam Gen: NAD, sitting in chair comfortable HEENT: NC/AT, MMM Lungs: CTAB CVS: s1s2nl, RRR Abd: protuberant, soft, NT, nl bowel sounds Ext: trace b/l LE edema Discharge Plan Discharge Items Patient Disposition: Home - Self-Care Reason For Visit: HEADACHE, N/V, BLURRY VISION, MYALGIAS, ARTHRALGIA Discharge Diagnosis: Uncontrolled hypertension, Headache Activity: Resume your previous activity Non-emergency contact: Primary Care Provider Call non-emergency contact if: you have any medication questions Follow-up/Referrals: Shaina Roman PA-C [Primary Care Provider] - Jericho Medrano MD [Physician] - Siddhartha Villaseñor MD [Physician] - Diet: Carb Consistent or DM2, Heart Healthy and Low Sodium (2gm) Addtl Attending Provider Instructions: 1. monitor blood pressure at home 2. nephrology recs reducing sodium intake to less than 1500mg per day 3. advise weight loss by calorie restriction, increasing protein and fiber intake while reducing carbs and fat. 4. follow up with PCP in about 7 to 10 days 5. follow up with neurology for further workup of your headache 6. outpatient follow up with [facility], please discuss with PCP for referral. Pending Studies at Discharge: No Stand-Alone Forms: [employer], Work/School Release, Smoking Cessation Medications and DC Order Prescriptions: New amlodipine [Norvasc] 5 mg Tablet 10 mg PO QAM 30 Days Qty: 60 0RF furosemide 20 mg Tablet 20 mg PO QAM 30 Days Qty: 30 0RF gabapentin 100 mg Capsule 200 mg PO QAM 30 Days Qty: 60 0RF lisinopril [Zestril] 40 mg Tablet 40 mg PO QAM 30 Days Qty: 30 0RF acetazolamide 250 mg tablet 250 mg PO BID 30 Days Qty: 60 0RF Continued (DME) pen needle, diabetic [Comfort EZ Pen [place]] 31 gauge x 5/16" needle See Dose Instructions .ROUTE .MEDSUPPLY Qty: 400 2RF Rx Instructions: inject 4 times daily as directed gabapentin 400 mg capsule 400 mg PO HS Qty: 90 3RF insulin lispro [Humalog KwikPen Insulin] 100 unit/mL insulin pen See Rx Instructions .ROUTE .COMPLEX Qty: 45 5RF Dose Instruction: INJECT 40 UNITS SUBCUTANEOUSLY WITH MEALS-SLIDING SCALE, UP TO ADDITIONAL 20 UNITS EACH MEAL. MAX DAILY DOSE 180 UNITS Rx Instructions: INJECT 40 UNITS SUBCUTANEOUSLY WITH MEALS-SLIDING SCALE, UP TO ADDITIONAL 20 UNITS EACH MEAL. MAX DAILY DOSE 180 UNITS simvastatin 40 mg tablet 40 mg PO QPM Qty: 90 3RF magnesium oxide 400 mg (241.3 mg magnesium) tablet 400 mg PO DAILY Qty: 90 3RF pantoprazole 40 mg tablet,delayed release (DR/EC) 40 mg PO DAILY Qty: 90 3RF Basaglar Tempo Pen(U-100)Insln 100 unit/mL (3 mL) insulin pen, sensor 55 unit subcut QPM Qty: 15 5RF (DME) FreeStyle [place] 14 Day Sensor Kit See Rx Instructions miscellaneous .MEDSUPPLY Qty: 1 3RF Rx Instructions: As directed diclofenac sodium 1 % gel 4 g topical QID PRN (Reason: Pain) (DME) lancets [OneTouch Delica Lancets] 33 gauge misc See Dose Instructions .ROUTE .MEDSUPPLY Qty: 400 3RF Rx Instructions: Test blood sugar 4 times daily and prn (DME) OneTouch Verio test strips Strip See Dose Instructions .ROUTE .MEDSUPPLY Qty: 400 3RF Rx Instructions: test blood sugar four times daily and prn (DME) blood-glucose meter [OneTouch Verio Flex Start] Kit See Rx Instructions .Route Qty: 1 0RF Rx Instructions: As directed aspirin 325 mg tablet 325 mg PO DAILY metoclopramide HCl [Reglan] 5 mg tablet 5 mg PO DAILY Qty: 90 3RF Discontinued furosemide [Lasix] 20 mg tablet 20 mg PO DAILY PRN (Reason: edema) Qty: 90 3RF lisinopril 30 mg tablet 30 mg PO DAILY Qty: 30 11RF Discharge Orders: Discharge Order (Routine); Ordered 06/08/24 Ordered By: Lyndsey Gibbs/Other Patient Handouts: Managing Type 1 Diabetes Admission Data Admit Date/Time: 06/04/24 23:52 Attending Provider: Lyndsey Eng Admit Provider: Chun Kim Primary Care Provider: Shaina Roman Other Providers: Chun Kim; Siddhartha Villaseñor; Jericho Medrano; Amy Miguel; Selvin Mosher; Desiree Martins Hospital Stay Data Consultations 06/04/24 23:11 ED Decision to Admit Stat 06/05/24 00:15 Consult Neurology Routine 06/07/24 16:08 Consult Nephrology Routine Diagnostic Imagining Performed 06/04/24 20:54 CT head/brain wo con Stat 06/05/24 00:00 MR brain wo/w con Stat 06/07/24 US duplex renal art/vein BI Routine Discharge Instructions Given to Patient (Per Discharging Provider) 1. monitor blood pressure at home 2. nephrology recs reducing sodium intake to less than 1500mg per day 3. advise weight loss by calorie restriction, increasing protein and fiber intake while reducing carbs and fat. 4. follow up with PCP in about 7 to 10 days 5. follow up with neurology for further workup of your headache 6. outpatient follow up with [facility], please discuss with PCP for referral. Total Time Total Time Spent Total Time Spent (In Minutes): 50 Coding Level of Care Code 97529 INP/OBS DISCH >30 MIN Diagnoses Intractable tension-type headache, unspecified chronicity pattern G44.201 Headache type: tension-type Headache chronicity pattern: unspecified pattern Nausea and vomiting R11.2 Blurred vision, bilateral H53.8 Uncontrolled hypertension I10 Papilloedema, unspecified H47.10 Type 2 diabetes mellitus E11.9
[2024-06-08 15:53] LABS: Appearance Urine Clear (Clear); Bacteria Urine Automated None Seen (None Seen); Bilirubin Urine Negative (Negative); Blood Urine Negative (Negative); Cast Urine Automated 0-2 /lpf (0-2); Color Urine Yellow; Epithelial Cell Urine Auto 0-2 /hpf (0-2); Glucose Urine UA Negative (Negative); Ketones Urine Negative (Negative); Leukocyte Esterase Urine Negative (Negative); Nitrite Urine Negative (Negative); Protein Urine 1+ (Negative); RBC Urine Automated 0-2 /hpf (0-2); Specific Gravity Urine 1.012 (1.000-1.030); Urobilinogen Urine Negative (Negative); WBC Urine Automated 0-5 /hpf (0-5)
[2024-06-09 08:53] LABS: Anti Nuclear Antibody Screen POSITIVE (NEGATIVE); Babesia microti DNA Not Detected (Not Detected)
[2024-06-10 10:19] LABS: ANA Pattern Cytoplasmic; ANA Titer 1:40 titer
== END 2024-06-08 16:28 | disposition home or self-care (01) | DRG 103 ==
LOC: ED 19:17 → SUATTDRO 23:52 → EDINP 23:52 → 2E 06-05 00:15

== ENCOUNTER 2025-05-26 15:02 | Inpatient (IN) ==
[2025-05-26 15:43] LABS: Hematocrit (blood only) 26.1 % (37.0-47.0); Hemoglobin 8.6 g/dL (12.0-16.0); Mean Corpuscular Hemoglobin 28.2 pg (25.0-34.0); Mean Corpuscular Volume 85.6 fL (80.0-100.0); Platelet Count 175 K/uL (130-400); RDW Standard Deviation 46.2 fL (36.4-46.3); Red Blood Count 3.05 M/uL (4.20-5.40); White Blood Count 12.55 K/ul (4.8-10.8)
[2025-05-26 16:00] LABS: Alanine Aminotransferase 14.0 U/L (7-52); Albumin Globulin Ratio 0.9 (0.9-2); Albumin Level 2.9 gm/dl (3.4-5.0); Alkaline Phosphatase 60.0 U/L (34-104); Anion Gap 9.0 (3-11); Bilirubin,Total 0.9 mg/dl (0.2-1.0); Blood Urea Nitrogen 57.0 mg/dl (6-23); Calcium 8.7 mg/dl (8.6-10.3); Carbon Dioxide 23.0 mmol/L (21-32); Chloride 108.0 mmol/L (98-107); Creatinine Clr Calc Pharmacy 76.3 ml/min; Globulin 3.3 gm/dl (2.5-4.0); Glucose 215.0 mg/dl (70-99(Fasting)); Potassium 4.0 mmol/L (3.5-5.1); Sodium 140.0 mmol/L (136-145); Total Protein 6.2 gm/dl (6.0-8.3)
[2025-05-26 16:05] LABS: Immature Granulocytes # (auto) 0.08 K/uL (0.01-0.20); Immature Granulocytes % (auto) 0.6 %
[2025-05-26 16:08] LABS: Magnesium 2.0 mg/dl (1.7-2.4)
[2025-05-26 16:11] LABS: INR 1.0 (0.9-1.1); Partial Thromboplastin Time 29 Seconds (21-31); Prothrombin Time 10.6 Seconds (9.0-12.0)
[2025-05-26 16:24] LABS: Thyroid Stimulating Hormone 1.461 uIu/ml (0.300-4.500)
--- NOTE | 2025-05-26 16:39 | Emergency Department Note ---
Impression & Plan Shortness of breath, Fluid overload, LOTT (dyspnea on exertion), Weight gain, Anemia, Elevated troponin, Hypertension ED Provider Note NAME: FROYLAN HOPPER AGE: 54 SEX: F : 1970 ARRIVES VIA: Walk-In INFORMANT: [Patient][] ED PROVIDER(S): [Jerrod Leung MD] CHIEF COMPLAINT: Hypertension, short of breath HISTORY OF PRESENT ILLNESS: Patient is a 54-year-old female who states that she was recently in the hospital. She is still using IV daptomycin at home. She states that she saw nephrology 4 days ago and, they recommended inpatient diuresis however, the patient did not want to stay in the hospital. Since her nephrology appointment, her breathing has worsened and she is even more short of breath than before. She believes in the last few weeks she has gained about 50 pounds of fluid. Her legs are quite swollen. There has been no cough, no chest pain. No fever. She is currently using Lasix, 40 mg daily. PMHx/PSHx/Social Hx: See Below PHYSICAL EXAM: GENERAL: Patient is in no acute distress. Patient is short of breath with just movement in the bed. HEENT: No acute trauma, normocephalic atraumatic, mucous membranes moist, no nasal congestion. NECK: No stridor, no adenopathy, no meningismus, trachea is midline. LUNGS: Clear to auscultation bilaterally, no wheeze, no rhonchi, breath sounds equal. HEART: Without murmurs gallops or rubs, regular rate and rhythm. ABDOMEN: Soft, nontender, no peritonitis. Obese. EXTREMITIES: No cyanosis, full range of motion of all the joints without pain or difficulty. Marked bilateral pedal edema. NEUROLOGIC: Oriented x 3, no acute motor or sensory deficits, no focal weakness. SKIN: No jaundice, no diaphoresis. DIFFERENTIAL DIAGNOSIS: CHF, fluid overload, renal failure, CT, among others. EMERGENCY DEPARTMENT PROCEDURES: MEDICAL DECISION MAKING: There is a mild leukocytosis, this could be consistent with infection or the stress of her presentation. Patient is anemic with a hemoglobin of 8.6, this appears baseline. There is a normal platelet count. No bandemia. No coagulopathy. There is some very mild elevation to the creatinine, no electrolyte abnormality in need of emergent correction. No concerning liver enzyme elevation. The patient appeared to be in a euthyroid state. ECG shows a sinus rhythm, no ischemia. Cardiac enzyme testing x 1 is slightly elevated. This troponin elevation could be secondary to cardiac injury or just mismatch from her dyspnea. Chest x-ray shows potential CHF/fluid overload. On exam, the patient was short of breath with any type of exertion. She was not febrile. The patient is clearly fluid overloaded. She has gained 50 pounds in just a few weeks. I do think she requires a hospital stay and diuresis. Further workup is certainly warranted. The patient was given 80 mg of IV Lasix. A Juarez catheter was ordered. I spoke with the patient and case management, the on-call hospitalist was consulted. Prior/Outside records/notes reviewed: Nephrology note from 05/22/2025 describing her presentation, findings and outpatient plan. ECG per my interpretation: Indication was shortness of breath. The ECG shows a normal sinus rhythm with a rate of 93. There is no ST elevation, no PVCs. The QTc is 405. Continuous Cardiac Monitoring per my interpretation: An order was placed for continuous cardiac monitoring. The monitor shows a rate of 99 with normal sinus rhythm. Imaging/x-ray results per my interpretation: Chest x-ray appears to show heart failure. Chronic Medical/Social conditions affecting care: Diabetes, hypertension, vasculitis. Care/Management discussed with: Case management and the on-call hospitalist. Level of care consideration(s): After review of the information above and other included data: --I believe the patient requires escalation of care to admission DISPOSITION: Admission Past Med/Surg History Problem List Hypertension (Acute) Elevated troponin (Acute) Anemia (Acute) Weight gain (Acute) LOTT (dyspnea on exertion) (Acute) Fluid overload (Acute) Shortness of breath (Acute) Fluid overload Edema of lower extremity Abnormal ankle brachial index Diabetic foot ulcer with osteomyelitis (Acute) Diabetes Leukocytoclastic vasculitis THUY (acute kidney injury) Vasculitis Osteomyelitis of second toe of left foot (Acute) Anemia (Acute) Cellulitis of foot, left (Acute) Diabetic peripheral neuropathy Migraine Gastroparesis Hepatic steatosis Mitral regurgitation Dyslipidemia Headache Pseudotumor cerebri Hypertension Type 2 diabetes mellitus Uncontrolled hypertension Lumbar radiculopathy Pseudohyponatremia Vitamin D deficiency (Chronic) Obesity (Chronic) Diabetes type 1, uncontrolled (Chronic) Charcot's joint 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) Background diabetic retinopathy associated with type 1 diabetes mellitus (Chronic) Papilloedema, unspecified (Chronic) Anemia (Chronic) Loss of protective sensation of skin of foot (Chronic) Medical History Benign essential hypertension Diabetic foot ulcers DKA (diabetic ketoacidosis) Cataract, bilateral Depression Grief at loss of child Diabetic peripheral neuropathy associated with type 1 diabetes mellitus Degenerative joint disease Allergic rhinitis Osteoarthritis Tachycardia Pneumonia Surgical History H/O carpal tunnel repair History of total right hip arthroplasty S/P hip replacement Family History Mother Stroke Hypertension Atrial fibrillation Sister Arthritis Hypertension Aunt Breast cancer Uncle Diabetes Father No problems noted. Social History Smoking Status: Former smoker Tobacco Type: Cigarettes Age Started Using Tobacco: 16; Age Quit Using Tobacco: 31; packs per day: 0.2; Second Hand Exposure: No; Do You Dip or Chew Tobacco: No; Hx Alcohol Use: No Hx Substance Use: No Preferred Language: Palestinian Communication Ability: Effective Visual Impairment: Severely Limited Hearing Ability: Normal Hydraulic Operator Required: No Beliefs That Will Affect Care: None marital status: Current Living Situation: Spouse Current Living Situation Comment: lives with /2 kids; 1 story; 4 steps/railing to enter current occupational status: employed 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 Feels Safe at Home: Yes Diet: regular Assistive Devices: Glasses and Hospital Bed Allergies Allergies Allergy/AdvReac Type Severity Reaction Status Date / Time ciprofloxacin Allergy Severe Rash Verified 05/22/25 13:27 Home Meds Home Medications Medication Instructions Recorded Confirmed diclofenac sodium 1 % topical gel 4 g topical QID PRN Pain 06/23/22 05/26/25 aspirin 325 mg tablet 325 mg PO DAILY 10/05/23 05/26/25 topiramate 25 mg tablet 50 mg PO QPM 05/06/25 05/26/25 Previous Rx's Medication Instructions Recorded pen needle, diabetic 31 gauge x #400 ea 04/08/2016" (Comfort EZ Pen [place]) blood sugar diagnostic (OneTouch #400 ea 06/02/21 Verio test strips) blood-glucose meter (OneTouch #1 ea 06/02/21 Verio Flex Start kit) lancets 33 gauge (OneTouch Delica #400 ea 06/02/21 Lancets) blood-glucose sensor (GetYou G7 #3 Boxes 06/10/24 Sensor device) ondansetron 4 mg disintegrating 4 - 8 mg (1 - 2 x 4 mg) PO Q6H PRN 06/10/24 tablet nausea and vomiting #30 tabs rosuvastatin 40 mg tablet 40 mg PO DAILY #90 tabs 06/12/24 rizatriptan 10 mg disintegrating 10 mg PO Q2H PRN migraine headache 06/14/24 tablet #12 tabs metoclopramide HCl 5 mg tablet 5 mg PO DAILY #90 tabs 09/05/24 (Reglan) hydrocodone-homatropine 5 mg-1.5 5 ml PO Q6H PRN cough #250 mL 10/09/24 mg/5 mL oral solution (Hydromet) amlodipine 5 mg tablet (Norvasc) 10 mg (2 x 5 mg) PO QAM 90 days 01/02/25 #180 tabs lisinopril 40 mg tablet (Zestril) 40 mg PO QAM 90 days #90 tabs 01/02/25 magnesium oxide 400 mg (241.3 mg 400 mg PO DAILY #90 tabs 02/10/25 magnesium) tablet pantoprazole 40 mg tablet,delayed 40 mg PO DAILY #90 tabs 03/03/25 release Humalog KwikPen Insulin 100 See Rx Instructions .Route 05/13/25 unit/mL subcutaneous (insulin .COMPLEX #45 mL lispro) daptomycin 500 mg intravenous 800 mg IV DAILY left 2nd toe 05/13/25 solution osteomyelitis gabapentin 300 mg capsule 300 mg PO TID #120 caps 05/13/25 hydroxyzine HCl 25 mg tablet 25 mg PO HS PRN sleep #20 tabs 05/13/25 insulin NPH isoph U-100 human 100 See Rx Instructions .Route 05/13/25 unit/mL (3 mL) subcutaneous pen .COMPLEX #15 mL (Novolin N FlexPen) insulin glargine 100 unit/mL (3 45 unit (0.45 mL) subcut QPM #15 mL 05/13/25 mL) subcutaneous pen, sensor (Basaglar Tempo Pen (U-100) Insulin) prednisone 10 mg tablet 10 mg PO DIRECTED #60 tabs 05/13/25 furosemide 20 mg tablet 40 mg (2 x 20 mg) PO QAM 30 days 05/22/25 #60 tabs Results & Data (ED) Vital Signs Vital Signs - 24 hr 05/26/25 15:05 05/26/25 16:50 05/26/25 17:00 Temperature 36.5 C Temperature Source Skin Pulse Rate 99 H 95 H 89 Pulse Rate from SpO2 Sensor 98 H 89 Respiratory Rate 16 13 17 Blood Pressure 198/116 H 194/98 H 190/111 H Blood Pressure Mean 143 130 137 Blood Pressure Position Semi-fowlers Pulse Oximetry 92 93 94 Oxygen Delivery Method Room Air Room Air Room Air Sepsis Recent Fever Within 48 Hours No Sepsis New/Unexplained Change in Mental Status N/A Sepsis Action Taken by Nursing No Action Required 05/26/25 17:11 Temperature Temperature Source Pulse Rate 92 H Pulse Rate from SpO2 Sensor Respiratory Rate Blood Pressure Blood Pressure Mean Blood Pressure Position Pulse Oximetry Oxygen Delivery Method Sepsis Recent Fever Within 48 Hours Sepsis New/Unexplained Change in Mental Status Sepsis Action Taken by [facility] Medications Current Medication List: was personally reviewed by me Laboratory Data Attestation: I reviewed the patient's lab results. 05/27/25 08:49 05/27/25 05:36 Lab Results 05/26/25 05/26/25 05/26/25 Range/Units 15:22 16:50 16:55 WBC 12.55 H (4.8-10.8) K/ul RBC 3.05 L (4.20-5.40) M/uL Hgb 8.6 L (12.0-16.0) g/dL Hct 26.1 L (37.0-47.0) % MCV 85.6 (80.0-100.0) fL MCH 28.2 (25.0-34.0) pg MCHC 33.0 (32.0-36.0) g/dL RDW Std Deviation 46.2 (36.4-46.3) fL RDW Coeff of Benny 14.9 H (11.5-14.5) % Plt Count 175 (130-400) K/uL MPV 10.0 (9.4-12.4) fL Immature Gran % (Auto) 0.6 % Neut % (Auto) 93.1 % Lymph % (Auto) 3.5 % [place] % (Auto) 1.8 % Eos % (Auto) 0.9 % Baso % (Auto) 0.1 % Neut # (Auto) 11.69 H (1.40-6.50) K/uL Lymph # (Auto) 0.44 L (1.20-3.40) K/uL [place] # (Auto) 0.22 (0.11-0.59) K/uL Eos # (Auto) 0.11 (0.00-0.50) K/uL Baso # (Auto) 0.01 (0.00-0.20) K/uL Immature Gran # (Auto) 0.08 (0.01-0.20) K/uL PT 10.6 (9.0-12.0) Seconds INR 1.0 (0.9-1.1) APTT 29 (21-31) Seconds PTT Ratio 1.1 Sodium 140 (136-145) mmol/L Potassium 4.0 (3.5-5.1) mmol/L Chloride 108 H (98-107) mmol/L Carbon Dioxide 23 (21-32) mmol/L Anion Gap 9 (3-11) BUN 57 H (6-23) mg/dl Creatinine 1.23 H (0.6-1.2) mg/dl Est Cr Clr Drug Dosing 76.3 ml/min eGFR 52.55 BUN/Creatinine Ratio 46.3 H (10-20) Glucose 215 H (70-99(Fasting)) mg/dl Calcium 8.7 (8.6-10.3) mg/dl Magnesium 2.0 (1.7-2.4) mg/dl Total Bilirubin 0.9 (0.2-1.0) mg/dl AST 11 L (13-39) U/L ALT 14 (7-52) U/L Alkaline Phosphatase 60 (34-104) U/L Troponin I High Sens 17.5 H (0-14) pg/ml B-Natriuretic Peptide 65 (0-100) pg/ml Total Protein 6.2 (6.0-8.3) gm/dl Albumin 2.9 L (3.4-5.0) gm/dl Globulin 3.3 (2.5-4.0) gm/dl Albumin/Globulin Ratio 0.9 (0.9-2) TSH 1.461 (0.300-4.500) uIu/ml Urine Color Yellow Urine Appearance Cloudy A (Clear) Urine pH 5.0 (4.5-7.5) Ur Specific [place] 1.020 (1.000-1.030) Urine Protein 4+ H (Negative) Urine Glucose (UA) Negative (Negative) Urine Ketones Negative (Negative) Urine Blood 3+ H (Negative) Urine Nitrite Negative (Negative) Urine Bilirubin Negative (Negative) Urine Urobilinogen Negative (Negative) Ur Leukocyte Esterase Negative (Negative) Urine WBC (Auto) 0-5 (0-5) /hpf Urine RBC (Auto) 6-10 H (0-2) /hpf U Hyaline Cast (Auto) >20 H (0-2) /lpf U Epithel Cells (Auto) 11-20 H (0-2) /hpf Urine Bacteria (Auto) 3+ H (None Seen) Hyaline Casts Present A (None Presnt) /lpf Urine Comment SARS-CoV-2 (PCR) NEGATIVE (Negative) Influenza Type A (PCR) Negative (Neg) Influenza Type B (PCR) Negative (Neg) RSV (RT-PCR) Negative (Neg) Administered Medications Acetaminophen (Acetaminophen 325 Mg Tab) 650 mg PO Q4H PRN PRN Reason: pain/fever Stop: 06/25/25 17:17 Last Admin: 05/26/25 21:12 Dose: 650 mg Documented By: JOANN Amlodipine Besylate (Amlodipine Besylate 5 Mg Tab) 10 mg PO QAM [facility] Stop: 06/26/25 08:59 Last Admin: 05/27/25 09:36 Dose: 10 mg Documented By: prateek Furosemide (Furosemide 40 Mg/4 Ml Vial) 40 mg IV BID [facility] Stop: 06/26/25 08:59 Last Admin: 05/27/25 09:36 Dose: 40 mg Documented By: prateek Gabapentin (Gabapentin 300 Mg Cap) 300 mg PO TID [facility] Stop: 06/25/25 20:59 Last Admin: 05/27/25 09:36 Dose: 300 mg Documented By: prateek Admin: 05/26/25 21:12 Dose: 300 mg Documented By: JOANN Heparin Sodium (Porcine) (Heparin Sod 5,000 Unit/0.5 Ml Vial) 5,000 units SQ Q8 [facility] Stop: 06/25/25 21:59 Last Admin: 05/27/25 05:40 Dose: 5,000 units Documented By: Admin: 05/26/25 22:24 Dose: 5,000 units Documented By: CARLO Hydroxyzine HCl (Hydroxyzine Hcl 25 Mg Tab) 25 mg PO HS PRN PRN Reason: sleep Stop: 06/25/25 17:08 Last Admin: 05/26/25 22:45 Dose: 25 mg Documented By: CARLO Daptomycin 700 mg/ Syringe 14 mls @ 7 mls/min IV Q24H [facility]; Protocol Stop: 07/07/25 19:59 Last Admin: 05/26/25 19:54 Dose: Not Given Documented By: JOANN Insulin Aspart (Insulin Aspart Per Unit Charge) 0 units SC ACHS [facility] Stop: 06/25/25 20:59 Last Admin: 05/26/25 22:24 Dose: 2 units Documented By: CARLO Co-signed By: BAILEY Insulin Human NPH (Insulin Human Nph) 10 units SC DAILY@0800 [facility] Stop: 06/26/25 09:14 Last Admin: 05/27/25 09:36 Dose: 10 units Documented By: prateek Co-signed By: anita Lisinopril (Lisinopril 40 Mg Tab) 40 mg PO QAM [facility] Stop: 06/26/25 08:59 Last Admin: 05/27/25 09:36 Dose: 40 mg Documented By: prateek Melatonin (Melatonin 3 Mg Tab) 6 mg PO HS PRN PRN Reason: Sleep Stop: 06/25/25 22:31 Last Admin: 05/26/25 22:45 Dose: 6 mg Documented By: CARLO Pantoprazole Sodium (Pantoprazole 40 Mg Tab) 40 mg PO DAILY [facility] Stop: 06/26/25 08:59 Last Admin: 05/27/25 09:36 Dose: 40 mg Documented By: prateek Prednisone (Prednisone 10 Mg Tablet) 10 mg PO DAILY [facility] Stop: 05/29/25 08:59 Last Admin: 05/27/25 09:36 Dose: 10 mg Documented By: prateek Rosuvastatin Calcium (Rosuvastatin Calcium 20 Mg Tab) 40 mg PO DAILY [facility] Stop: 06/26/25 08:59 Last Admin: 05/27/25 09:51 Dose: Not Given Documented By: prateek Topiramate (Topiramate 50 Mg Tab) 50 mg PO QPM [facility] Stop: 06/25/25 20:59 Last Admin: 05/26/25 21:14 Dose: Not Given Documented By: JOANN Discontinued Medications Furosemide (Furosemide 40 Mg/4 Ml Vial) 80 mg IV ONE ONE Stop: 05/26/25 16:32 Last Admin: 05/26/25 16:52 Dose: 80 mg Documented By: HENRY Insulin Aspart (Insulin Aspart Per Unit Charge) 0 units SC TODAY@0000,0400 [facility] Stop: 05/27/25 04:01 Last Admin: 05/27/25 03:18 Dose: Not Given Documented By: Admin: 05/27/25 01:16 Dose: Not Given Documented By: CARLO Insulin Human NPH (Insulin Human Nph) 10 units SC DAILY@0800 [facility] Stop: 06/26/25 09:14 Last Admin: 05/27/25 09:48 Dose: Not Given Documented By: prateek Imaging Data Radiologist's Impression: Chest X-Ray 05/26/25 15:45 Clinical History: Dyspnea Technique: 2 frontal views of the chest were obtained Comparison is made to the prior examination dated 05/13/2025 Findings: There are new diffuse interstitial and alveolar opacities throughout both lungs, likely due to pneumonia. The heart size is within normal limits. No pleural effusion or pneumothorax is seen. There is no definite pulmonary nodule. No fracture is noted. There is a left arm PICC line with its tip in the SVC Impression: Apparent diffuse pneumonia ACT 112: Positive. There are findings on this exam that require communication between the performing entity and the patient following Patient Test Result Information Act ([place] ACT 112) guidelines. Electronically signed by Jonathon Armas 05-26-2025 4:35 PM Discharge Plan Visit Data Chief Complaint: Hypertension Stated Complaint: HIGH BLOOD, FLUID RETENSION ED Provider: Jerrod Leung Discharge Problem: Shortness of breath, Fluid overload, LOTT (dyspnea on exertion), Weight gain, Anemia, Elevated troponin, Hypertension Patient Disposition: Admitted As Inpatient Condition: Fair Discharge Instructions Interventions: ED Discharge Assessment Last Done: 05/26/25 19:36 Discharge Problem: Fluid overload Qualifiers: Hypervolemia type: unspecified Qualified Code(s): E87.70 - Fluid overload, unspecified Anemia Qualifiers: Anemia type: unspecified type Qualified Code(s): D64.9 - Anemia, unspecified Hypertension Qualifiers: Hypertension type: unspecified Qualified Code(s): I10 - Essential (primary) hypertension
[2025-05-26] MEDS: FUROSEMIDE 40 MG/4 ML VIAL IV ONE (16:52)
[2025-05-26] MEDS ORDERED: ONDANSETRON INJ 2 MG/ML 2 ML VIAL IV PRN (17:18)
[2025-05-26] MEDS ORDERED: PHARMACY GLYCEMIC MGMT CONSULT PRN (17:18)
--- NOTE | 2025-05-26 17:25 | History & Physical Report ---
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 -50lb weight gain over past few weeks -was on lasix 40mg po daily - increased to lasix 40mg IV BID - nephrology consulted -echo (2) Diabetic foot ulcers: Plan: -osteomyelitis of 2nd left toe -con't daptomycin (3) Type 2 diabetes mellitus: Plan: -Pharm consult for glycemic management -lantus (4) Hypertension: Plan: -lisinopril -amlodipine Plan Heparin SQ for DVT px History of Present Illness Chief Complaint: SOB, edema Primary Care Provider: Priscilla Lewis MD Pt is a 54 y/o female with PMH of diabetes, diabetic peripheral neuropathy, recent left second toe diabetic wound with underlying osteomyelitis on daptomycin, 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 Pt states she has gain 50lbs over the past few weeks. Prior to admission patient was told by her piece hand to ER for inpatient diuresis. In the ER he labs show a cr 1.23 and CXR shows pulmonary vascular congestion. Pt was given 80mg IV lasix and will be admitted for further diuresis and evaluation by nephrology. Allergies Allergy/AdvReac Type Severity Reaction Status Date / Time ciprofloxacin Allergy Severe Rash Verified 05/22/25 13:27 Home Medications Medication Instructions Recorded Confirmed Type pen needle, diabetic 31 gauge x #400 ea 04/08/20 05/22/25 Rx 5/16" (Comfort EZ Pen [place]) blood sugar diagnostic (OneTouch #400 ea 06/02/21 05/22/25 Rx Verio test strips) blood-glucose meter (OneTouch #1 ea 06/02/21 05/22/25 Rx Verio Flex Start kit) lancets 33 gauge (OneTouch Delica #400 ea 06/02/21 05/22/25 Rx Lancets) diclofenac sodium 1 % topical gel 4 g topical QID PRN Pain 06/23/22 05/26/25 History aspirin 325 mg tablet 325 mg PO DAILY 10/05/23 05/26/25 History blood-glucose sensor (Dexcom G7 #3 Boxes 06/10/24 05/22/25 Rx Sensor device) ondansetron 4 mg disintegrating 4 - 8 mg (1 - 2 x 4 mg) PO Q6H PRN 06/10/24 05/26/25 Rx tablet nausea and vomiting #30 tabs rosuvastatin 40 mg tablet 40 mg PO DAILY #90 tabs 06/12/24 05/26/25 Rx rizatriptan 10 mg disintegrating 10 mg PO Q2H PRN migraine headache 06/14/24 05/26/25 Rx tablet #12 tabs metoclopramide HCl 5 mg tablet 5 mg PO DAILY #90 tabs 09/05/24 05/26/25 Rx (Reglan) hydrocodone-homatropine 5 mg-1.5 5 ml PO Q6H PRN cough #250 mL 10/09/24 05/26/25 Rx mg/5 mL oral solution (Hydromet) amlodipine 5 mg tablet (Norvasc) 10 mg (2 x 5 mg) PO QAM 90 days 01/02/25 05/26/25 Rx #180 tabs lisinopril 40 mg tablet (Zestril) 40 mg PO QAM 90 days #90 tabs 01/02/25 05/26/25 Rx magnesium oxide 400 mg (241.3 mg 400 mg PO DAILY #90 tabs 02/10/25 05/26/25 Rx magnesium) tablet pantoprazole 40 mg tablet,delayed 40 mg PO DAILY #90 tabs 03/03/25 05/26/25 Rx release topiramate 25 mg tablet 50 mg PO QPM 05/06/25 05/26/25 History Humalog KwikPen Insulin 100 See Rx Instructions .Route 05/13/25 05/26/25 Rx unit/mL subcutaneous (insulin .COMPLEX #45 mL lispro) daptomycin 500 mg intravenous 800 mg IV DAILY left 2nd toe 05/13/25 05/26/25 Rx solution osteomyelitis gabapentin 300 mg capsule 300 mg PO TID #120 caps 05/13/25 05/26/25 Rx hydroxyzine HCl 25 mg tablet 25 mg PO HS PRN sleep #20 tabs 05/13/25 05/26/25 Rx insulin NPH isoph U-100 human 100 See Rx Instructions .Route 05/13/25 05/26/25 Rx unit/mL (3 mL) subcutaneous pen .COMPLEX #15 mL (Novolin N FlexPen) insulin glargine 100 unit/mL (3 45 unit (0.45 mL) subcut QPM #15 mL 05/13/25 05/26/25 Rx mL) subcutaneous pen, sensor (Basaglar Tempo Pen (U-100) Insulin) prednisone 10 mg tablet 10 mg PO DIRECTED #60 tabs 05/13/25 05/26/25 Rx furosemide 20 mg tablet 40 mg (2 x 20 mg) PO QAM 30 days 05/22/25 05/26/25 Rx #60 tabs Past Med/Surg History Problem List (Updated 05/26/25 @ 17:34 by Magdiel Ty MD) Fluid overload Edema of lower extremity Abnormal ankle brachial index Diabetic foot ulcer with osteomyelitis (Acute) Diabetes Leukocytoclastic vasculitis THUY (acute kidney injury) Vasculitis Osteomyelitis of second toe of left foot (Acute) Anemia (Acute) Cellulitis of foot, left (Acute) Diabetic peripheral neuropathy Migraine Gastroparesis Hepatic steatosis Mitral regurgitation Dyslipidemia Headache Pseudotumor cerebri Hypertension Type 2 diabetes mellitus Uncontrolled hypertension Lumbar radiculopathy Pseudohyponatremia Vitamin D deficiency (Chronic) Obesity (Chronic) Diabetes type 1, uncontrolled (Chronic) Charcot's joint 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) Background diabetic retinopathy associated with type 1 diabetes mellitus (Chronic) Papilloedema, unspecified (Chronic) Anemia (Chronic) Loss of protective sensation of skin of foot (Chronic) Medical History Benign essential hypertension Diabetic foot ulcers DKA (diabetic ketoacidosis) Cataract, bilateral Depression Grief at loss of child Diabetic peripheral neuropathy associated with type 1 diabetes mellitus Degenerative joint disease Allergic rhinitis Osteoarthritis Tachycardia Pneumonia Surgical History H/O carpal tunnel repair History of total right hip arthroplasty S/P hip replacement Family History Mother Stroke Hypertension Atrial fibrillation Sister Arthritis Hypertension Aunt Breast cancer Uncle Diabetes Father No problems noted. Social History Smoking Status: Never smoker Tobacco Type: Cigarettes Age Started Using Tobacco: 16; Age Quit Using Tobacco: 31; packs per day: 0.2; Second Hand Exposure: No; Do You Dip or Chew Tobacco: No; Hx Alcohol Use: No Hx Substance Use: No Preferred Language: Maltese Communication Ability: Effective Visual Impairment: Severely Limited Hearing Ability: Normal Telegrapher Agent Required: No Beliefs That Will Affect Care: None marital status: Current Living Situation: Spouse Current Living Situation Comment: lives with /2 kids; 1 story; 4 steps/railing to enter current occupational status: employed 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 HENT: Negative for neck pain/stiffness, headache, congestion, sore throat, swelling. EYES: Negative for discharge/pain or vision changes. RESP: Negative for cough/hemoptysis and +shortness of breath. CV: Negative chest pain, difficulty breathing, palpitations. ABD: Negative pain, nausea, vomiting. : Negative increase frequency, dysuria, blood in urine or stool. MUSC: Negative for muscle aches, +edema. SKIN: Negative rash, lesions/sores. NEURO: Negative headache, dizziness, weakness. Physical Exam Physical Exam: GENERAL APPEARANCE NAD, activity normal for age, well developed/ well nourished, no cyanosis, pallor, or diaphoresis. EYES lids/conjunctiva normal. EARS/NOSE/THROAT Mucous membranes moist, nares normal, lips/teeth normal uvula midline without oral pharyngeal erythema, exudate or swelling TMs normal bilaterally. No lymphangitis/lymphedema. HEAD/NECK normocephalic atraumatic, no facial trauma, neck is supple. RESPIRATORY respiratory effort normal, speaks in full sentences, no tripod position, no accessory muscle use. Lungs clear to auscultation without rhonchi, wheezes, rales CARDIAC Regular rate and rhythm, no edema. ABDOMINAL Soft, ND/NT. No evidence of fluid wave. No pulsatile masses on exam, rebound tenderness, Rosas sign or pain over Mcburney's point. MUSCLES/EXTREMITIES No abnormal range of motion, no swelling. SKIN Warm, pink and dry. No rashes, dermatoses, petechiae or lesions. NEUROLOGICAL Speech is clear and appropriate. Normal level of consciousness. Gait and coordination are normal. 5/5 strength in all extremities. PSYCH Normal mood and affect. Judgement/competence is appropriate Results & Data Results & Data Vital Signs (Past 12 Hours) Vital Signs Temp Pulse Resp BP Pulse Ox O2 Del Method 05/26/25 17:11 92 H 05/26/25 15:05 36.5 C 99 H 16 198/116 H 92 Room Air PG Care Time/CCT Total # of Minutes Spent Total Time Spent with Patient: Total time spent is greater than 50% in coordination of care (as documented) at patient's floor/unit and/or counseling patient: Coding Level of Care Code 14202 INT INP/OBS CARE 2/55MIN Diagnoses Fluid overload E87.70 Diabetic foot ulcers E11.621; L97.509 Type 2 diabetes mellitus E11.9 Primary hypertension I10 Hypertension type: primary hypertension (4) Hypertension Hypertension type: primary hypertension Qualified Code(s): I10 - Essential (primary) hypertension
[2025-05-26 17:39] LABS: Appearance Urine Cloudy (Clear); Cast Urine Automated >20 /lpf (0-2); Glucose Urine UA Negative (Negative); WBC Urine Automated 0-5 /hpf (0-5)
[2025-05-26 17:52] LABS: Bacteria Urine Automated 3+ (None Seen)
--- NOTE | 2025-05-26 17:56 | Electrocardiogram Report ---
Test Reason : Blood Pressure : */* mmHG Vent. Rate : 93 BPM Atrial Rate : 93 BPM P-R Int : 126 ms QRS Dur : 74 ms QT Int : 326 ms P-R-T Axes : * 10 10 degrees QTcB Int : 405 ms Normal sinus rhythm Normal ECG When compared with ECG of 06-May-2025 14:54, No significant change was found Confirmed by Scotty Gallegos ([id number]) on 05/26/2025 5:56:13 PM Referred By: Confirmed By: Scotty Gallegos
[2025-05-26 18:24] LABS: Influenza A virus by PCR Negative (Neg); Influenza B virus by PCR Negative (Neg); SARS CoV2 RNA(COVID-19) Ceph NEGATIVE (Negative)
[2025-05-26] MEDS: DAPTOmycin 700 MG in SYRINGE 0 ML IV SCH (19:54)
[2025-05-26] MEDS ORDERED: GLUCOSE 40% GEL 15 GM TUBE PO PRN (20:00)
[2025-05-26] MEDS ORDERED: DEXTROSE 50% 50 ML SYRINGE IV PRN (20:00)
[2025-05-26] MEDS ORDERED: CARBOHYDRATES FOR HYPOGLYCEMIA PO PRN (20:00)
[2025-05-26] MEDS ORDERED: GLUCOSE 10 TAB/TUBE PO PRN (20:00)
[2025-05-26] MEDS ORDERED: GLUCAGON FOR INJ 1 MG VIAL SQ PRN (20:00)
[2025-05-26] MEDS ORDERED: LANTUS PER UNIT CHARGE SC SCH (21:00)
[2025-05-26] MEDS: GABAPENTIN 300 MG CAP PO SCH (21:12)
[2025-05-26] MEDS: ACETAMINOPHEN 325 MG TAB PO PRN (21:12)
[2025-05-26] MEDS: TOPIRAMATE 50 MG TAB PO SCH (21:14)
[2025-05-26] MEDS: INSULIN ASPART PER UNIT CHARGE SC SCH (22:15)
[2025-05-26] MEDS: HEPARIN SOD 5,000 UNIT/0.5 ML VIAL SQ SCH (22:24)
[2025-05-26] MEDS: MELATONIN 3 MG TAB PO PRN (22:45)
[2025-05-27] MEDS: INSULIN ASPART PER UNIT CHARGE SC SCH (01:16)
[2025-05-27 06:41] LABS: Hematocrit (blood only) 21.4 % (37.0-47.0); Hemoglobin 7.1 g/dL (12.0-16.0); Mean Corpuscular Hemoglobin 28.7 pg (25.0-34.0); Mean Corpuscular Volume 86.6 fL (80.0-100.0); Platelet Count 159 K/uL (130-400); RDW Standard Deviation 46.9 fL (36.4-46.3); Red Blood Count 2.47 M/uL (4.20-5.40); White Blood Count 7.83 K/ul (4.8-10.8)
[2025-05-27 07:09] LABS: Anion Gap 7.0 (3-11); Blood Urea Nitrogen 52.0 mg/dl (6-23); Calcium 8.0 mg/dl (8.6-10.3); Carbon Dioxide 25.0 mmol/L (21-32); Chloride 109.0 mmol/L (98-107); Creatinine Clr Calc Pharmacy 77.5 ml/min; Glucose 100.0 mg/dl (70-99(Fasting)); Potassium 3.7 mmol/L (3.5-5.1); Sodium 141.0 mmol/L (136-145)
--- NOTE | 2025-05-27 08:49 | Nephrology Consultation ---
Date of Consultation May 27, 2025 Assessment & Plan (1) THUY (acute kidney injury): * Resolved. THUY prior hospitalization due to inflammation in the setting of ACEi. Serologic evaluation was unrevealing including anti-GBM antibodies * Hematuria is due to Juarez catheter, proteinuria is likely due to underlying DKD * Monitor BMP * Will order follow up urinalysis w/ MACR (2) Vasculitis: * Likely acute drug reaction to Cipro. Skin rash has markedly improved off this antibiotic and following steroid therapy (3) Pulmonary infiltrates: * Continue steroid taper * Agree w/ IV furosemide. Target 1-2 L/day net diuresis * Monitor closely for fever, signs of infection due to immunocompromised status * Will repeat CXR in am (4) Hypertension: * Expect BP will improve as patient diureses * Once BP has improved, recommend tapering amlodipine to off due to LE swelling (5) Anemia: * Possibly related to steroid therapy * Agree w/ PPI therapy * Will order iron studies, FOBT History of Present Illness Reason for Consultation: THUY, CHF Attending Physician: Magdiel Ty MD History of Present Illness Mrs. Burton is a 54 year old white female who is seen at the request of the [facility] hospitalist service for evaluation of THUY, CHF. Information for the HPI was obtained from direct patient interview and review of the EMR. HPI is summarized as follows: Mrs. Burton was last hospitalized 05/06/25-05/13/25 due to diabetic ulcer involving the L second toe, osteomyelitis and LLE cellulitis. She was initially treated w/ Cipro therapy but developed a leukocytoclastic vasculitis and was transitioned to daptomycin. She has no prior h/o renal insufficiency but during her hospitalization developed THUY. Serum Cr chanda from baseline 1.0 to peak 3.94. Renal US was negative for obstruction. Urinalysis w/ microscopy revealed 1.2g proteinuria, microscopic hematuria and granular casts. MARILOU was + at 1:40 w/ cytoplasmic pattern and normal complement. ANCA, anti-GBM Ab were negative. Patient was non-oliguric. THUY was attributed to inflammation and dehydration in the setting of ACEi. Mrs. Burton was discharged to home 05/13/25 on IV Daptomycin via PICC and prednisone taper as directed by the hospitalist service. Despite tapering prednisone to 30 mg daily and holding lisinopril, she has developed a progressive 30 lb weight gain and tense LE swelling. Mrs. Burton was evaluated as outpatient in the nephrology office 05/22/25. She declined readmission to the hospital for IV diuretic therapy. Instead furosemide 20 mg po BID was prescribed, continued weaning of prednisone was advised and return visit in 2 weeks was arranged. Unfortunately, Mrs. Burton developed progressive dyspnea and presented to the [facility] 05/26/25 for evaluation. Her CXR revealed diffuse pulmonary edema. She was admitted to the hospitalist service and given 80 mg IV furosemide. Overnight she has diuresed 1.5L. She remains on O2 via NC. Cr has returned to baseline 1.1 PMH: HTN, IDDM, diabetic foot ulcer and depression. Allergies Allergy/AdvReac Type Severity Reaction Status Date / Time ciprofloxacin Allergy Severe Rash Verified 05/22/25 13:27 Home Medications Medication Instructions Recorded Confirmed Type pen needle, diabetic 31 gauge x #400 ea 04/08/20 05/22/25 Rx 5/16" (Comfort EZ Pen [place]) blood sugar diagnostic (LastRoomTouch #400 ea 06/02/21 05/22/25 Rx Verio test strips) blood-glucose meter (LastRoomTouch #1 ea 06/02/21 05/22/25 Rx Verio Flex Start kit) lancets 33 gauge (OneTouch Delica #400 ea 06/02/21 05/22/25 Rx Lancets) diclofenac sodium 1 % topical gel 4 g topical QID PRN Pain 06/23/22 05/26/25 History aspirin 325 mg tablet 325 mg PO DAILY 10/05/23 05/26/25 History blood-glucose sensor (Dexcom G7 #3 Boxes 06/10/24 05/22/25 Rx Sensor device) ondansetron 4 mg disintegrating 4 - 8 mg (1 - 2 x 4 mg) PO Q6H PRN 06/10/24 05/26/25 Rx tablet nausea and vomiting #30 tabs rosuvastatin 40 mg tablet 40 mg PO DAILY #90 tabs 06/12/24 05/26/25 Rx rizatriptan 10 mg disintegrating 10 mg PO Q2H PRN migraine headache 06/14/24 05/26/25 Rx tablet #12 tabs metoclopramide HCl 5 mg tablet 5 mg PO DAILY #90 tabs 09/05/24 05/26/25 Rx (Reglan) hydrocodone-homatropine 5 mg-1.5 5 ml PO Q6H PRN cough #250 mL 10/09/24 05/26/25 Rx mg/5 mL oral solution (Hydromet) amlodipine 5 mg tablet (Norvasc) 10 mg (2 x 5 mg) PO QAM 90 days 01/02/25 05/26/25 Rx #180 tabs lisinopril 40 mg tablet (Zestril) 40 mg PO QAM 90 days #90 tabs 01/02/25 05/26/25 Rx magnesium oxide 400 mg (241.3 mg 400 mg PO DAILY #90 tabs 02/10/25 05/26/25 Rx magnesium) tablet pantoprazole 40 mg tablet,delayed 40 mg PO DAILY #90 tabs 03/03/25 05/26/25 Rx release topiramate 25 mg tablet 50 mg PO QPM 05/06/25 05/26/25 History Humalog KwikPen Insulin 100 See Rx Instructions .Route 05/13/25 05/26/25 Rx unit/mL subcutaneous (insulin .COMPLEX #45 mL lispro) daptomycin 500 mg intravenous 800 mg IV DAILY left 2nd toe 05/13/25 05/26/25 Rx solution osteomyelitis gabapentin 300 mg capsule 300 mg PO TID #120 caps 05/13/25 05/26/25 Rx hydroxyzine HCl 25 mg tablet 25 mg PO HS PRN sleep #20 tabs 05/13/25 05/26/25 Rx insulin NPH isoph U-100 human 100 See Rx Instructions .Route 05/13/25 05/26/25 Rx unit/mL (3 mL) subcutaneous pen .COMPLEX #15 mL (Novolin N FlexPen) insulin glargine 100 unit/mL (3 45 unit (0.45 mL) subcut QPM #15 mL 05/13/25 05/26/25 Rx mL) subcutaneous pen, sensor (Basaglar Tempo Pen (U-100) Insulin) prednisone 10 mg tablet 10 mg PO DIRECTED #60 tabs 05/13/25 05/26/25 Rx furosemide 20 mg tablet 40 mg (2 x 20 mg) PO QAM 30 days 05/22/25 05/26/25 Rx #60 tabs Patient History Medical History Benign essential hypertension Diabetic foot ulcers DKA (diabetic ketoacidosis) Cataract, bilateral Depression Grief at loss of child Diabetic peripheral neuropathy associated with type 1 diabetes mellitus Degenerative joint disease Allergic rhinitis Osteoarthritis Tachycardia Pneumonia Surgical History H/O carpal tunnel repair History of total right hip arthroplasty S/P hip replacement Family History Mother Stroke Hypertension Atrial fibrillation Sister Arthritis Hypertension Aunt Breast cancer Uncle Diabetes Father No problems noted. Social History Smoking Status: Former smoker Tobacco Type: Cigarettes Age Started Using Tobacco: 16; Age Quit Using Tobacco: 31; packs per day: 0.2; Second Hand Exposure: No; Do You Dip or Chew Tobacco: No; Hx Alcohol Use: No Hx Substance Use: No Preferred Language: Swedish Communication Ability: Effective Visual Impairment: Severely Limited Hearing Ability: Normal Spiritual Advisor Required: No Beliefs That Will Affect Care: None marital status: Current Living Situation: Spouse Current Living Situation Comment: lives with /2 kids; 1 story; 4 steps/railing to enter current occupational status: employed 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 Feels Safe at Home: Yes Diet: regular Assistive Devices: Glasses and Hospital Bed Review of Systems Constitutional: no fever Eyes: no problem reported Ear, Nose, Mouth, Throat: no problem reported Respiratory: + dyspnea on exertion Cardiovascular: no chest pain Gastrointestinal: no abdominal pain, no nausea, no vomiting and no diarrhea/loose stools Genitourinary: no dysuria Integumentary: + rash markedly improved Neurologic: no localized weakness Physical Exam Constitutional: not in distress Eyes: PERRL, conjunctivae normal, anicteric sclerae ENMT: external ear and nose normal, oropharynx normal Neck: trachea midline, no thyromegaly Respiratory: Auscultation: + crackles Cardiovascular: Rate/Rhythm: regular rate and regular rhythm Extremities: + edema (tense bilateral LE swelling) Gastrointestinal (Abdomen): normal bowel sounds, soft, nontender, no hepatosplenomegaly Skin: LE skin rash resolving Neurologic: Speech / Cognition: normal speech and normal cognition Results & Data Vital Signs (Past 12 Hours) Vital Signs Temp Pulse Pulse Pulse Resp BP BP 05/27/25 08:42 36.6 C 98 H 18 199/80 H 05/27/25 05:35 91 H 05/27/25 02:47 36.9 C 83 18 164/81 H 05/26/25 22:14 90 05/26/25 21:45 05/26/25 21:45 36.8 C 86 18 193/77 H 05/26/25 21:00 93 H 16 Pulse Ox O2 Del Method 05/27/25 08:42 94 Room Air 05/27/25 05:35 05/27/25 02:47 91 Room Air 05/26/25 22:14 05/26/25 21:45 Room Air 05/26/25 21:45 91 Room Air 05/26/25 21:00 98 Laboratory Results Laboratory Results WBC 7.83 K/ul (4.8-10.8) 05/27/25 05:36 RBC 2.47 M/uL (4.20-5.40) L 05/27/25 05:36 Hgb 7.1 g/dL (12.0-16.0) L 05/27/25 05:36 Hct 21.4 % (37.0-47.0) L 05/27/25 05:36 MCV 86.6 fL (80.0-100.0) 05/27/25 05:36 MCH 28.7 pg (25.0-34.0) 05/27/25 05:36 MCHC 33.2 g/dL (32.0-36.0) 05/27/25 05:36 RDW Std Deviation 46.9 fL (36.4-46.3) H 05/27/25 05:36 RDW Coeff of Benny 14.7 % (11.5-14.5) H 05/27/25 05:36 Plt Count 159 K/uL (130-400) 05/27/25 05:36 MPV 10.1 fL (9.4-12.4) 05/27/25 05:36 Immature Gran % (Auto) 0.6 % 05/26/25 15:22 Neut % (Auto) 93.1 % 05/26/25 15:22 Lymph % (Auto) 3.5 % 05/26/25 15:22 [place] % (Auto) 1.8 % 05/26/25 15:22 Eos % (Auto) 0.9 % 05/26/25 15:22 Baso % (Auto) 0.1 % 05/26/25 15:22 Neut # (Auto) 11.69 K/uL (1.40-6.50) H 05/26/25 15:22 Lymph # (Auto) 0.44 K/uL (1.20-3.40) L 05/26/25 15:22 [place] # (Auto) 0.22 K/uL (0.11-0.59) 05/26/25 15:22 Eos # (Auto) 0.11 K/uL (0.00-0.50) 05/26/25 15:22 Baso # (Auto) 0.01 K/uL (0.00-0.20) 05/26/25 15:22 Immature Gran # (Auto) 0.08 K/uL (0.01-0.20) 05/26/25 15:22 PT 10.6 Seconds (9.0-12.0) 05/26/25 15:22 INR 1.0 (0.9-1.1) 05/26/25 15:22 APTT 29 Seconds (21-31) 05/26/25 15:22 PTT Ratio 1.1 05/26/25 15:22 Sodium 141 mmol/L (136-145) 05/27/25 05:36 Potassium 3.7 mmol/L (3.5-5.1) 05/27/25 05:36 Chloride 109 mmol/L (98-107) H 05/27/25 05:36 Carbon Dioxide 25 mmol/L (21-32) 05/27/25 05:36 Anion Gap 7 (3-11) 05/27/25 05:36 BUN 52 mg/dl (6-23) H 05/27/25 05:36 Creatinine 1.19 mg/dl (0.6-1.2) 05/27/25 05:36 Est Cr Clr Drug Dosing 77.5 ml/min 05/27/25 05:36 eGFR 54.67 05/27/25 05:36 BUN/Creatinine Ratio 43.7 (10-20) H 05/27/25 05:36 Glucose 100 mg/dl (70-99(Fasting)) H 05/27/25 05:36 POC Glucose 131 mg/dl (70-99) H 05/27/25 08:12 Calcium 8.0 mg/dl (8.6-10.3) L 05/27/25 05:36 Magnesium 2.0 mg/dl (1.7-2.4) 05/26/25 15:22 Total Bilirubin 0.9 mg/dl (0.2-1.0) 05/26/25 15:22 AST 11 U/L (13-39) L 05/26/25 15:22 ALT 14 U/L (7-52) 05/26/25 15:22 Alkaline Phosphatase 60 U/L (34-104) 05/26/25 15:22 Troponin I High Sens 17.5 pg/ml (0-14) H 05/26/25 15: B-Natriuretic Peptide 65 pg/ml (0-100) 05/26/25 15:22 Total Protein 6.2 gm/dl (6.0-8.3) 05/26/25 15: Albumin 2.9 gm/dl (3.4-5.0) L 05/26/25 15:22 Globulin 3.3 gm/dl (2.5-4.0) 05/26/25 15:22 Albumin/Globulin Ratio 0.9 (0.9-2) 05/26/25 15:22 TSH 1.461 uIu/ml (0.300-4.500) 05/26/25 15:22 Urine Color Yellow 05/26/25 16:50 Urine Appearance Cloudy (Clear) A 05/26/25 16:50 Urine pH 5.0 (4.5-7.5) 05/26/25 16:50 Ur Specific [place] 1.020 (1.000-1.030) 05/26/25 16:50 Urine Protein 4+ (Negative) H 05/26/25 16:50 Urine Glucose (UA) Negative (Negative) 05/26/25 16:50 Urine Ketones Negative (Negative) 05/26/25 16:50 Urine Blood 3+ (Negative) H 05/26/25 16:50 Urine Nitrite Negative (Negative) 05/26/25 16:50 Urine Bilirubin Negative (Negative) 05/26/25 16:50 Urine Urobilinogen Negative (Negative) 05/26/25 16:50 Ur Leukocyte Esterase Negative (Negative) 05/26/25 16:50 Urine WBC (Auto) 0-5 /hpf (0-5) 05/26/25 16:50 Urine RBC (Auto) 6-10 /hpf (0-2) H 05/26/25 16:50 U Hyaline Cast (Auto) >20 /lpf (0-2) H 05/26/25 16:50 U Epithel Cells (Auto) 11-20 /hpf (0-2) H 05/26/25 16:50 Urine Bacteria (Auto) 3+ (None Seen) H 05/26/25 16:50 Hyaline Casts Present /lpf (None Presnt) A 05/26/25 16:50 Urine Comment 05/26/25 16:50 SARS-CoV-2 (PCR) NEGATIVE (Negative) 05/26/25 16:55 Influenza Type A (PCR) Negative (Neg) 05/26/25 16:55 Influenza Type B (PCR) Negative (Neg) 05/26/25 16:55 RSV (RT-PCR) Negative (Neg) 05/26/25 16:55 Impressions Chest X-Ray 05/26/25 15:45 Clinical History: Dyspnea Technique: 2 frontal views of the chest were obtained Comparison is made to the prior examination dated 05/13/2025 Findings: There are new diffuse interstitial and alveolar opacities throughout both lungs, likely due to pneumonia. The heart size is within normal limits. No pleural effusion or pneumothorax is seen. There is no definite pulmonary nodule. No fracture is noted. There is a left arm PICC line with its tip in the SVC Impression: Apparent diffuse pneumonia ACT 112: Positive. There are findings on this exam that require communication between the performing entity and the patient following Patient Test Result Information Act ([place] ACT 112) guidelines. Electronically signed by Jonathon Armas 05-26-2025 4:35 PM PG Care Time/CCT Total # of Minutes Spent Total Time Spent with Patient: 80 min provided to review EMD records, progress notes, review CXR film and report, interview and examine patient, order laboratory testing, update medical record Coding Level of Care Code 61078 IN/OBS CONSULT LVL 5,80M Diagnoses THUY (acute kidney injury) N17.9 Vasculitis I77.6 Pulmonary infiltrates R91.8 Hypertension I10 Hypertension type: unspecified Anemia D64.9 (4) Hypertension Hypertension type: unspecified Qualified Code(s): I10 - Essential (primary) hypertension
[2025-05-27] MEDS ORDERED: ASPIRIN 325 MG ECTAB PO SCH (09:00)
[2025-05-27] MEDS ORDERED: FUROSEMIDE 40 MG TAB PO SCH (09:00)
--- NOTE | 2025-05-27 09:14 | Pharmacy Report ---
Pharmacy Glycemic Short Note 2 - Date of Service May 27, 2025 - Glycemic Short BSG Results (Last 24 hours): 05/26/25 05/26/25 05/26/25 15:22 20:12 22:15 Glucose 215 H POC Glucose 132 H 169 H 05/27/25 05/27/25 05/27/25 01:13 03:08 04:21 Glucose POC Glucose 98 106 H 101 H 05/27/25 05/27/25 05/27/25 05:36 05:44 08:12 Glucose 100 H POC Glucose 108 H 131 H OUTPATIENT ANTIDIABETIC REGIMEN: * Basaglar 45 units SQ qPM * Humalog 20 units SQ TIDM + SS * NPH (taper) SQ daily with prednisone HbA1c: 8% () ASSESSMENT: * Pt is a 54 YOF with a history of DM1 on insulin therapy at home admitted with fluid overload in setting of leukocytoclastic vasculitis. Pharmacy consulted to assist with inpatient glycemic management. * BSGs [phone]/dL since admission. Reportedly took her Basaglar last evening prior to arrival. Received an additional 2 units of bolus insulin yesterday. * Receiving IV antibiotics, prednisone 10mg PO daily started today, diet ordered. * Will continue daily NPH with prednisone (10 units qAM). Lantus HS scale depending on BSG based upon home basal requirements. PLAN FOR INPATIENT GLYCEMIC CONTROL: * Hold outpatient oral diabetes medications * Basal insulin * NPH 10 units SQ qAM with prednisone * Lantus 25/35 units SQ HS * Bolus insulin * NovoLog per scale ACHS or Q6hrs while NPO * Goal Range: Low 110 mg/dL - High 140 mg/dL * Correction Factor: 15 mg/dL/unit * Nutritional / Prandial insulin per carb ratio of 1 unit per 6 grams CHO consumed
[2025-05-27 09:30] LABS: Hematocrit (blood only) 21.9 % (37.0-47.0); Hemoglobin 7.5 g/dL (12.0-16.0); Mean Corpuscular Hemoglobin 28.4 pg (25.0-34.0); Mean Corpuscular Volume 83.0 fL (80.0-100.0); Platelet Count 165 K/uL (130-400); RDW Standard Deviation 45.0 fL (36.4-46.3); Red Blood Count 2.64 M/uL (4.20-5.40); White Blood Count 9.80 K/ul (4.8-10.8)
[2025-05-27] MEDS: INSULIN HUMAN NPH SC SCH ×2 (09:36→09:48)
[2025-05-27] MEDS: FUROSEMIDE 40 MG/4 ML VIAL IV SCH ×2 (09:36→13:52)
[2025-05-27] MEDS: ROSUVASTATIN CALCIUM 20 MG TAB PO SCH (09:51)
--- NOTE | 2025-05-27 10:12 | Hospitalist Progress Note ---
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 Pt with good urine output. Review of Systems Review of Systems: CONST: Negative for fever, body aches and chills. HENT: Negative for neck pain/stiffness, headache, congestion, sore throat, swelling. EYES: Negative for discharge/pain or vision changes. RESP: Negative for cough/hemoptysis and +shortness of breath. CV: Negative chest pain, difficulty breathing, palpitations. ABD: Negative pain, nausea, vomiting. : Negative increase frequency, dysuria, blood in urine or stool. MUSC: Negative for muscle aches, +edema. SKIN: Negative rash, lesions/sores. NEURO: Negative headache, dizziness, weakness. Physical Exam Physical Exam: GENERAL APPEARANCE NAD, activity normal for age, well developed/ well nourished, no cyanosis, pallor, or diaphoresis. EYES lids/conjunctiva normal. EARS/NOSE/THROAT Mucous membranes moist, nares normal, lips/teeth normal uvula midline without oral pharyngeal erythema, exudate or swelling TMs normal bilaterally. No lymphangitis/lymphedema. HEAD/NECK normocephalic atraumatic, no facial trauma, neck is supple. RESPIRATORY respiratory effort normal, speaks in full sentences, no tripod position, no accessory muscle use. Lungs clear to auscultation without rhonchi, wheezes, rales CARDIAC Regular rate and rhythm, no edema. ABDOMINAL Soft, ND/NT. No evidence of fluid wave. No pulsatile masses on exam, rebound tenderness, Rosas sign or pain over Mcburney's point. MUSCLES/EXTREMITIES No abnormal range of motion, no swelling. SKIN Warm, pink and dry. No rashes, dermatoses, petechiae or lesions. NEUROLOGICAL Speech is clear and appropriate. Normal level of consciousness. Gait and coordination are normal. 5/5 strength in all extremities. PSYCH Normal mood and affect. Judgement/competence is appropriate Results & Data Results & Data Vital Signs (Past 12 Hours) Vital Signs Temp Pulse Pulse Resp BP BP Pulse Ox 05/27/25 09:55 05/27/25 08:42 36.6 C 98 H 18 199/80 H 94 05/27/25 05:35 91 H 05/27/25 02:47 36.9 C 83 18 164/81 H 91 05/26/25 22:14 90 O2 Del Method 05/27/25 09:55 Room Air 05/27/25 08:42 Room Air 05/27/25 05:35 05/27/25 02:47 Room Air 05/26/25 22:14 PG Care Time/CCT Total # of Minutes Spent Total Time Spent with Patient: Total time spent is greater than 50% in coordination of care (as documented) at patient's floor/unit and/or counseling patient: Coding Level of Care Code 47738 SUB INP/OBS CARE 2/35MIN Diagnoses Fluid overload E87.70 Diabetic foot ulcers E11.621; L97.509 Type 2 diabetes mellitus E11.9 Primary hypertension I10 Hypertension type: primary hypertension (4) Hypertension Hypertension type: primary hypertension Qualified Code(s): I10 - Essential (primary) hypertension
[2025-05-27] MEDS ORDERED: LANTUS PER UNIT CHARGE SQ SCH (10:15)
[2025-05-27] MEDS: SIMETHICONE 40 MG/0.6 ML 30ML PO PRN (14:03)
[2025-05-27] MEDS: LANTUS PER UNIT CHARGE SC SCH (18:33)
[2025-05-28 05:59] LABS: Hematocrit (blood only) 22.0 % (37.0-47.0); Hemoglobin 7.1 g/dL (12.0-16.0); Mean Corpuscular Hemoglobin 27.6 pg (25.0-34.0); Mean Corpuscular Volume 85.6 fL (80.0-100.0); Platelet Count 140 K/uL (130-400); RDW Standard Deviation 46.5 fL (36.4-46.3); Red Blood Count 2.57 M/uL (4.20-5.40); White Blood Count 7.15 K/ul (4.8-10.8)
[2025-05-28 06:28] LABS: Anion Gap 9.0 (3-11); Blood Urea Nitrogen 50.0 mg/dl (6-23); Calcium 7.9 mg/dl (8.6-10.3); Carbon Dioxide 24.0 mmol/L (21-32); Chloride 107.0 mmol/L (98-107); Creatinine Clr Calc Pharmacy 69.3 ml/min; Glucose 170.0 mg/dl (70-99(Fasting)); Iron 43.0 mcg/dl (35-150); Potassium 3.2 mmol/L (3.5-5.1); Sodium 140.0 mmol/L (136-145); Total Iron Binding Cap Calc 146.0 mcg/dl (250-450); Transferrin 104.0 mg/dl (200-360); Transferrin (FE) Percent Satur 29.0 % (15-50)
[2025-05-28 06:40] LABS: Appearance Urine Clear (Clear); Bacteria Urine Automated None Seen (None Seen); Cast Urine Automated >20 /lpf (0-2); Glucose Urine UA Negative (Negative); RBC Urine Automated >20 /hpf (0-2)
[2025-05-28 06:48] LABS: Ferritin 98.5 ng/ml (8-388)
--- NOTE | 2025-05-28 08:11 | XRay Report ---
EXAM: XR chest 1V portable CLINICAL HISTORY: CHF TECHNIQUE: An X-ray image of the chest is obtained in AP projection. COMPARISON: 05/26/2025 CXR . FINDINGS: Pulmonary Parenchyma: Technically rotated. Inhomogeneous opacification in bilateral perihilar distribution with mild interval improvement. No evidence of pleural effusion or pleural thickening. Heart and Mediastinum: Heart size and shape are normal. No mediastinal widening or masses. No hilar or mediastinal lymphadenopathy. Bony Thorax: Bony thorax appears intact without fractures or deformities. Soft Tissues: Soft tissues overlying the chest wall are unremarkable. IMPRESSION: 1. Inhomogeneous opacification in bilateral perihilar distribution may suggest infective etiology with mild interval improvement. 2. Needs follow-up and clinical correlation. Electronically signed by Guanako Lyles 05-28-2025 08:11 AM
[2025-05-28] MEDS ORDERED: INSULIN HUMAN NPH SC SCH (09:00)
[2025-05-28] MEDS: POTASSIUM CHLORIDE / WTR 10 MEQ/100 ML PLCT IV SCH (09:24)
--- NOTE | 2025-05-28 09:25 | Nephrology Progress Note ---
Date of Service May 28, 2025 Assessment & Plan (1) THUY (acute kidney injury): Plan: * MARILOU was 1:40 w/ cytoplasmic pattern, ANCA and anti-GBM Ab negative * Cr has risen from 1.0 to 1.3 in response to diuresis * Hematuria is due to Juarez catheter, proteinuria is likely due to underlying DKD * CXR film this am shows marked improvement in pulmonary edema * Will reduce furosemide to 40 mg IV daily * Monitor BMP, UO (2) Vasculitis: Plan: * Likely acute drug reaction to Cipro. Skin rash has markedly improved off this antibiotic and following steroid therapy (3) Pulmonary infiltrates: Plan: * Patient reports that steroid taper was completed yesterday * Furosemide has been reduced to 40 mg IV daily. Target 1-2 L/day net diuresis * Monitor closely for fever, signs of infection due to immunocompromised status * 05/28/25 CXR shows marked improvement in pulmonary edema (4) Hypertension: Plan: * Expect BP will improve as patient diureses * Patient held lisinopril this morning. Agree. Will monitor and consider restarting in am * Once BP has improved, recommend tapering amlodipine to off due to LE swelling (5) Anemia: Plan: * Possibly related to steroid therapy * Agree w/ PPI therapy * 05/28/25 iron sat 29%, ferritin 98.5. Awaiting FOBT * Consider transfusion for Hgb < 7.0 Admission and Anticipated Discharge Date Admission Date: May 26, 2025 Subjective Mrs. Burton diuresed 4 L yesterday in response to IV furosemide. She was breathing comfortably on RA this morning. She notes that her leg edema persists. Review of Systems Constitutional: no fever Eyes: no problem reported Ear, Nose, Mouth, Throat: no problem reported Respiratory: + dyspnea on exertion Cardiovascular: no chest pain Gastrointestinal: no abdominal pain, no nausea, no vomiting and no diarrhea/loose stools Genitourinary: no dysuria Integumentary: + rash markedly improved Neurologic: no localized weakness Physical Exam Constitutional: not in distress Eyes: PERRL, conjunctivae normal, anicteric sclerae ENMT: external ear and nose normal, oropharynx normal Neck: trachea midline, no thyromegaly Respiratory: Auscultation: + crackles Cardiovascular: Rate/Rhythm: regular rate and regular rhythm Extremities: + edema (tense bilateral LE swelling) Gastrointestinal (Abdomen): normal bowel sounds, soft, nontender, no hepatosplenomegaly Neurologic: Speech / Cognition: normal speech and normal cognition Results & Data Vital Signs (Past 12 Hours) Vital Signs Temp Pulse Pulse Resp BP Pulse Ox O2 Del Method 05/28/25 08:22 36.6 C 97 H 16 165/80 H 91 Room Air 05/28/25 03:03 36.5 C 84 18 155/78 H 93 Room Air 05/27/25 22:48 36.8 C 96 H 16 153/86 H 92 Room Air 05/27/25 22:19 98 H Laboratory Results Laboratory Results - last 24 hr 05/27/25 05/27/25 05/27/25 08:49 11:40 17:02 WBC 9.80 RBC 2.64 L Hgb 7.5 L Hct 21.9 L MCV 83.0 MCH 28.4 MCHC 34.2 RDW Std Deviation 45.0 RDW Coeff of Benny 14.8 H Plt Count 165 MPV 9.4 Sodium Potassium Chloride Carbon Dioxide Anion Gap BUN Creatinine Est Cr Clr Drug Dosing eGFR BUN/Creatinine Ratio Glucose POC Glucose 147 H 256 H Calcium Iron TIBC Transferrin Transferrin % Sat Ferritin Urine Color Urine Appearance Urine pH Ur Specific [place] Urine Protein Urine Glucose (UA) Urine Ketones Urine Blood Urine Nitrite Urine Bilirubin Urine Urobilinogen Ur Leukocyte Esterase Urine WBC (Auto) Urine RBC (Auto) U Hyaline Cast (Auto) U Epithel Cells (Auto) Urine Bacteria (Auto) Granular Casts Ur Random Creatinine Ur Random Microalbumin Microalb/Creat Ratio 05/27/25 05/28/25 05/28/25 20:19 04:27 05:36 WBC 7.15 RBC 2.57 L Hgb 7.1 L Hct 22.0 L MCV 85.6 MCH 27.6 MCHC 32.3 RDW Std Deviation 46.5 H RDW Coeff of Benny 15.0 H Plt Count 140 MPV 9.4 Sodium 140 Potassium 3.2 L Chloride 107 Carbon Dioxide 24 Anion Gap 9 BUN 50 H Creatinine 1.38 H Est Cr Clr Drug Dosing 69.3 eGFR 45.77 BUN/Creatinine Ratio 36.2 H Glucose 170 H POC Glucose 248 H 86 Calcium 7.9 L Iron 43 TIBC 146 L Transferrin 104 L Transferrin % Sat 29 Ferritin 98.5 Urine Color Urine Appearance Urine pH Ur Specific [place] Urine Protein Urine Glucose (UA) Urine Ketones Urine Blood Urine Nitrite Urine Bilirubin Urine Urobilinogen Ur Leukocyte Esterase Urine WBC (Auto) Urine RBC (Auto) U Hyaline Cast (Auto) U Epithel Cells (Auto) Urine Bacteria (Auto) Granular Casts Ur Random Creatinine Ur Random Microalbumin Microalb/Creat Ratio 05/28/25 05/28/25 05:50 08:09 WBC RBC Hgb Hct MCV MCH MCHC RDW Std Deviation RDW Coeff of Benny Plt Count MPV Sodium Potassium Chloride Carbon Dioxide Anion Gap BUN Creatinine Est Cr Clr Drug Dosing eGFR BUN/Creatinine Ratio Glucose POC Glucose 201 H Calcium Iron TIBC Transferrin Transferrin % Sat Ferritin Urine Color Yellow Urine Appearance Clear Urine pH 5.5 Ur Specific [place] 1.021 Urine Protein 4+ H Urine Glucose (UA) Negative Urine Ketones Negative Urine Blood 3+ H Urine Nitrite Negative Urine Bilirubin Negative Urine Urobilinogen Negative Ur Leukocyte Esterase Negative Urine WBC (Auto) 6-10 H Urine RBC (Auto) >20 H U Hyaline Cast (Auto) >20 H U Epithel Cells (Auto) 3-5 H Urine Bacteria (Auto) None Seen Granular Casts Present A Ur Random Creatinine 112.4 Ur Random Microalbumin > 4500.0 Microalb/Creat Ratio > 4003.5 H PG Care Time/CCT Total # of Minutes Spent Total Time Spent with Patient: 50 min provided to review progress notes, laboratory data, CXR films, interview and examine patient, enter orders to adjust diuretic dosing, update medical record Coding Level of Care Code 06794 SUB INP/OBS CARE 3/50MIN Diagnoses THUY (acute kidney injury) N17.9 Vasculitis I77.6 Pulmonary infiltrates R91.8 Hypertension I10 Hypertension type: unspecified Anemia D64.9 (4) Hypertension Hypertension type: unspecified Qualified Code(s): I10 - Essential (primary) h ypertension
--- NOTE | 2025-05-28 09:40 | Hospitalist Progress Note ---
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 Pt with good urine output. Review of Systems Review of Systems: CONST: Negative for fever, body aches and chills. HENT: Negative for neck pain/stiffness, headache, congestion, sore throat, swelling. EYES: Negative for discharge/pain or vision changes. RESP: Negative for cough/hemoptysis and +shortness of breath. CV: Negative chest pain, difficulty breathing, palpitations. ABD: Negative pain, nausea, vomiting. : Negative increase frequency, dysuria, blood in urine or stool. MUSC: Negative for muscle aches, +edema. SKIN: Negative rash, lesions/sores. NEURO: Negative headache, dizziness, weakness. Physical Exam Physical Exam: GENERAL APPEARANCE NAD, activity normal for age, well developed/ well nourished, no cyanosis, pallor, or diaphoresis. EYES lids/conjunctiva normal. EARS/NOSE/THROAT Mucous membranes moist, nares normal, lips/teeth normal uvula midline without oral pharyngeal erythema, exudate or swelling TMs normal bilaterally. No lymphangitis/lymphedema. HEAD/NECK normocephalic atraumatic, no facial trauma, neck is supple. RESPIRATORY respiratory effort normal, speaks in full sentences, no tripod position, no accessory muscle use. Lungs clear to auscultation without rhonchi, wheezes, rales CARDIAC Regular rate and rhythm, no edema. ABDOMINAL Soft, ND/NT. No evidence of fluid wave. No pulsatile masses on exam, rebound tenderness, Rosas sign or pain over Mcburney's point. MUSCLES/EXTREMITIES No abnormal range of motion, no swelling. SKIN Warm, pink and dry. No rashes, dermatoses, petechiae or lesions. NEUROLOGICAL Speech is clear and appropriate. Normal level of consciousness. Gait and coordination are normal. 5/5 strength in all extremities. PSYCH Normal mood and affect. Judgement/competence is appropriate Results & Data Results & Data Vital Signs (Past 12 Hours) Vital Signs Temp Pulse Pulse Resp BP Pulse Ox O2 Del Method 05/28/25 08:22 36.6 C 97 H 16 165/80 H 91 Room Air 05/28/25 03:03 36.5 C 84 18 155/78 H 93 Room Air 05/27/25 22:48 36.8 C 96 H 16 153/86 H 92 Room Air 05/27/25 22:19 98 H PG Care Time/CCT Total # of Minutes Spent Total Time Spent with Patient: Total time spent is greater than 50% in coordination of care (as documented) at patient's floor/unit and/or counseling patient: Coding Level of Care Code 19341 SUB INP/OBS CARE 2/35MIN Diagnoses Fluid overload E87.70 Diabetic foot ulcers E11.621; L97.509 Type 2 diabetes mellitus E11.9 Primary hypertension I10 Hypertension type: primary hypertension (4) Hypertension Hypertension type: primary hypertension Qualified Code(s): I10 - Essential (primary) hypertension
--- NOTE | 2025-05-28 11:09 | Pharmacy Report ---
Pharmacy Glycemic Short Note 2 - Date of Service May 28, 2025 - Glycemic Short BSG Results (Last 24 hours): 05/27/25 05/27/25 05/27/25 11:40 17:02 20:19 Glucose POC Glucose 147 H 256 H 248 H 05/28/25 05/28/25 05/28/25 04:27 05:36 08:09 Glucose 170 H POC Glucose 86 201 H OUTPATIENT ANTIDIABETIC REGIMEN: * Basaglar 45 units SQ qPM * Humalog 20 units SQ TIDM + SS * NPH (taper) SQ daily with prednisone HbA1c: 8% () ASSESSMENT: 05/28 * Stressors stable. Prednisone 10 mg qAM continues. * AM fasting BSG above goal, but this was after an overnight BSG that was below goal. Possible snacking overnight in response to BSG of 86 mg/dL. Will therefore not base changes on the 210 mg/dL and will reduce Lantus to prevent possible overnight hypoglycemia * Two post-prandial BSG's >200 mg/dL yesterday, but patient refused insulin x2 times yesterday AM. Will keep Novolog as-is. 05/27 * Pt is a 54 YOF with a history of DM1 on insulin therapy at home admitted with fluid overload in setting of leukocytoclastic vasculitis. Pharmacy consulted to assist with inpatient glycemic management. * BSGs [phone]/dL since admission. Reportedly took her Basaglar last evening prior to arrival. Received an additional 2 units of bolus insulin yesterday. * Receiving IV antibiotics, prednisone 10mg PO daily started today, diet ordered. * Will continue daily NPH with prednisone (10 units qAM). Lantus HS scale depending on BSG based upon home basal requirements. PLAN FOR INPATIENT GLYCEMIC CONTROL: * Basal insulin * NPH 10 units SQ qAM with prednisone * Lantus 10 or 20 units SQ HS, depending on BSG * Bolus insulin * NovoLog per scale ACHS or Q6hrs while NPO * Goal Range: Low 110 mg/dL - High 140 mg/dL * Correction Factor: 15 mg/dL/unit * Nutritional / Prandial insulin per carb ratio of 1 unit per 6 grams CHO consumed
[2025-05-29 06:41] LABS: Hematocrit (blood only) 20.4 % (37.0-47.0); Hemoglobin 6.7 g/dL (12.0-16.0); Mean Corpuscular Hemoglobin 28.5 pg (25.0-34.0); Mean Corpuscular Volume 86.8 fL (80.0-100.0); Platelet Count 132 K/uL (130-400); RDW Standard Deviation 48.1 fL (36.4-46.3); Red Blood Count 2.35 M/uL (4.20-5.40); White Blood Count 5.27 K/ul (4.8-10.8)
[2025-05-29] MEDS ORDERED: SODIUM CHLORIDE 0.9% 100 ML IV PRN ×2 (06:45→09:24)
[2025-05-29 07:07] LABS: Anion Gap 7.0 (3-11); Blood Urea Nitrogen 47.0 mg/dl (6-23); Calcium 7.8 mg/dl (8.6-10.3); Carbon Dioxide 27.0 mmol/L (21-32); Chloride 106.0 mmol/L (98-107); Creatinine Clr Calc Pharmacy 62.6 ml/min; Glucose 282.0 mg/dl (70-99(Fasting)); Potassium 3.5 mmol/L (3.5-5.1); Sodium 140.0 mmol/L (136-145)
[2025-05-29] MEDS: FUROSEMIDE 40 MG/4 ML VIAL IV SCH (07:37)
--- NOTE | 2025-05-29 09:29 | Hospitalist Progress Note ---
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 -50lb weight gain over past few weeks -was on lasix 40mg po daily - increased to lasix 40mg IV BID - nephrology consulted -echo -con't diuresis (2) Anemia: Plan: -pt with h/h continuing to drop -heme 6.7 this am -will transfuse 2 units PRBC -start venofer for iron deficiency anemia (3) Diabetic foot ulcers: Plan: -osteomyelitis of 2nd left toe -con't daptomycin (4) Type 2 diabetes mellitus: Plan: -Pharm consult for glycemic management -lantus (5) Hypertension: Plan: -lisinopril -amlodipine Plan Heparin SQ for DVT px Admission and Anticipated Discharge Date Admission Date: May 26, 2025 Subjective No events pt feeling better this am. Review of Systems Review of Systems: CONST: Negative for fever, body aches and chills. HENT: Negative for neck pain/stiffness, headache, congestion, sore throat, swelling. EYES: Negative for discharge/pain or vision changes. RESP: Negative for cough/hemoptysis and +shortness of breath. CV: Negative chest pain, difficulty breathing, palpitations. ABD: Negative pain, nausea, vomiting. : Negative increase frequency, dysuria, blood in urine or stool. MUSC: Negative for muscle aches, +edema. SKIN: Negative rash, lesions/sores. NEURO: Negative headache, dizziness, weakness. Physical Exam Physical Exam: GENERAL APPEARANCE NAD, activity normal for age, well developed/ well nourished, no cyanosis, pallor, or diaphoresis. EYES lids/conjunctiva normal. EARS/NOSE/THROAT Mucous membranes moist, nares normal, lips/teeth normal uvula midline without oral pharyngeal erythema, exudate or swelling TMs normal bilaterally. No lymphangitis/lymphedema. HEAD/NECK normocephalic atraumatic, no facial trauma, neck is supple. RESPIRATORY respiratory effort normal, speaks in full sentences, no tripod position, no accessory muscle use. Lungs clear to auscultation without rhonchi, wheezes, rales CARDIAC Regular rate and rhythm, no edema. ABDOMINAL Soft, ND/NT. No evidence of fluid wave. No pulsatile masses on exam, rebound tenderness, Rosas sign or pain over Mcburney's point. MUSCLES/EXTREMITIES No abnormal range of motion, no swelling. SKIN Warm, pink and dry. No rashes, dermatoses, petechiae or lesions. NEUROLOGICAL Speech is clear and appropriate. Normal level of consciousness. Gait and coordination are normal. 5/5 strength in all extremities. PSYCH Normal mood and affect. Judgement/competence is appropriate Results & Data Results & Data Vital Signs (Past 12 Hours) Vital Signs Temp Pulse Pulse Resp BP Pulse Ox O2 Del Method 05/29/25 08:05 36.6 C 89 18 182/96 H 95 Room Air 05/29/25 03:10 36.3 C L 52 L 18 148/83 H 97 Room Air 05/28/25 23:27 36.4 C L 55 L 18 149/81 H 97 Room Air 05/28/25 21:42 88 PG Care Time/CCT Total # of Minutes Spent Total Time Spent with Patient: Total time spent is greater than 50% in coordination of care (as documented) at patient's floor/unit and/or counseling patient: Coding Level of Care Code 84627 SUB INP/OBS CARE 2/35MIN Diagnoses Fluid overload E87.70 Anemia D64.9 Anemia type: unspecified type Diabetic foot ulcers E11.621; L97.509 Type 2 diabetes mellitus E11.9 Primary hypertension I10 Hypertension type: primary hypertension (2) Anemia Anemia type: unspecified type Qualified Code(s): D64.9 - Anemia, unspecified (5) Hypertension Hypertension type: primary hypertension Qualified Code(s): I10 - Essential (primary) hypertension
[2025-05-29] MEDS: METOPROLOL SUCC 25MG EXT REL TAB PO SCH (09:42)
[2025-05-29] MEDS: IRON SUCROSE 300 MG in SODIUM CHLORIDE 0.9% 250 ML IV ONE (10:05)
--- NOTE | 2025-05-29 10:36 | Nephrology Progress Note ---
Date of Service May 29, 2025 Assessment & Plan (1) THUY (acute kidney injury): Plan: * MARILOU was 1:40 w/ cytoplasmic pattern, ANCA and anti-GBM Ab negative * Cr has risen from 1.0 to 1.4 in response to diuresis * Hematuria is due to Juarez catheter, proteinuria is likely due to underlying DKD * Monitor BMP, UO (2) Vasculitis: Plan: * Likely acute drug reaction to Cipro. Skin rash has markedly improved off this antibiotic and following steroid therapy (3) Pulmonary infiltrates: Plan: * Patient reports that steroid taper was completed 05/27/25 * Monitor closely for fever, signs of infection due to immunocompromised status * 05/28/25 CXR shows marked improvement in pulmonary edema (4) Hypertension: Plan: * Expect BP will improve as patient diureses * Patient has received all of her BP medications this morning (amlodipine, furosemide, lisinopril) * Will change medical regimen to metoprolol XL 25 mg qAM and hydralazine 25 mg TID starting tomorrow am * Hold furosemide and monitor for resolution of LE swelling off amlodipine therapy (5) Anemia: Plan: * Possibly related to steroid therapy * Continue PPI therapy * 05/28/25 iron sat 29%, ferritin 98.5. Awaiting FOBT * Patient to receive one unit PRBC today Admission and Anticipated Discharge Date Admission Date: May 26, 2025 Subjective Mrs. Burton was evaluated in her hospital room this morning. She reports brisk UO. Dyspnea has resolved. She still has LE swelling Review of Systems Constitutional: no fever Eyes: no problem reported Ear, Nose, Mouth, Throat: no problem reported Respiratory: + dyspnea on exertion Cardiovascular: no chest pain Gastrointestinal: no abdominal pain, no nausea, no vomiting and no diarrhea/loose stools Genitourinary: no dysuria Integumentary: + rash markedly improved Neurologic: no localized weakness Physical Exam Constitutional: not in distress Eyes: PERRL, conjunctivae normal, anicteric sclerae ENMT: external ear and nose normal, oropharynx normal Neck: trachea midline, no thyromegaly Respiratory: Auscultation: lungs clear to auscultation bilaterally Cardiovascular: Rate/Rhythm: regular rate and regular rhythm Extremities: + edema (tense bilateral LE swelling) Gastrointestinal (Abdomen): normal bowel sounds, soft, nontender, no hepatosplenomegaly Neurologic: Speech / Cognition: normal speech and normal cognition Results & Data Vital Signs (Past 12 Hours) Vital Signs Temp Pulse Pulse Resp BP BP Pulse Ox 05/29/25 10:04 36.5 C 86 20 155/84 H 93 05/29/25 08:05 36.6 C 89 18 182/96 H 95 05/29/25 08:00 80 05/29/25 03:10 36.3 C L 52 L 18 148/83 H 97 05/28/25 23:27 36.4 C L 55 L 18 149/81 H 97 O2 Del Method 05/29/25 10:04 Room Air 05/29/25 08:05 Room Air 05/29/25 08:00 05/29/25 03:10 Room Air 05/28/25 23:27 Room Air Laboratory Results Laboratory Results - last 24 hr 05/28/25 05/28/25 05/28/25 05:36 11:59 17:19 WBC RBC Hgb Hct MCV MCH MCHC RDW Std Deviation RDW Coeff of Benny Plt Count MPV Sodium Potassium Chloride Carbon Dioxide Anion Gap BUN Creatinine Est Cr Clr Drug Dosing eGFR BUN/Creatinine Ratio Glucose POC Glucose 158 H 133 H Calcium Blood Type Blood Type Recheck O Positive Antibody Screen Crossmatch 05/28/25 05/29/25 05/29/25 20:17 05:43 07:01 WBC 5.27 RBC 2.35 L Hgb 6.7 L* Hct 20.4 L* MCV 86.8 MCH 28.5 MCHC 32.8 RDW Std Deviation 48.1 H RDW Coeff of Benny 15.2 H Plt Count 132 MPV 9.8 Sodium 140 Potassium 3.5 Chloride 106 Carbon Dioxide 27 Anion Gap 7 BUN 47 H Creatinine 1.46 H Est Cr Clr Drug Dosing 62.6 eGFR 42.78 BUN/Creatinine Ratio 32.2 H Glucose 282 H POC Glucose 230 H Calcium 7.8 L Blood Type O Positive Blood Type Recheck Antibody Screen NEGATIVE Crossmatch See Detail 05/29/25 07:47 WBC RBC Hgb Hct MCV MCH MCHC RDW Std Deviation RDW Coeff of Benny Plt Count MPV Sodium Potassium Chloride Carbon Dioxide Anion Gap BUN Creatinine Est Cr Clr Drug Dosing eGFR BUN/Creatinine Ratio Glucose POC Glucose 271 H Calcium Blood Type Blood Type Recheck Antibody Screen Crossmatch PG Care Time/CCT Total # of Minutes Spent Total Time Spent with Patient: 50 min provided to review progress notes, laboratory data, interview and examine patient, enter orders to adjust antihypertensive regimen, update medical record Coding Level of Care Code 70669 SUB INP/OBS CARE MIN Diagnoses THUY (acute kidney injury) N17.9 Vasculitis I77.6 Pulmonary infiltrates R91.8 Hypertension I10 Hypertension type: unspecified Anemia D64.9 (4) Hypertension Hypertension type: unspecified Qualified Code(s): I10 - Essential (primary) hypertension
--- NOTE | 2025-05-30 08:49 | Nephrology Progress Note ---
Date of Service May 30, 2025 Assessment & Plan (1) THUY (acute kidney injury): Plan: * MARILOU was 1:40 w/ cytoplasmic pattern, ANCA and anti-GBM Ab negative * Cr has risen from 1.0 to 1.4 in response to diuresis * Hematuria is due to Juarez catheter, proteinuria is likely due to underlying DKD * OK to d/c Juarez catheter if patient will allow collection/measurement of all urinary void * Monitor BMP, UO (2) Vasculitis: Plan: * Likely acute drug reaction to Cipro. Skin rash has markedly improved off this antibiotic and following steroid therapy (3) Pulmonary infiltrates: Plan: * Patient reports that steroid taper was completed 05/27/25 * Monitor closely for fever, signs of infection due to immunocompromised status * 05/28/25 CXR shows marked improvement in pulmonary edema (4) Hypertension: Plan: * Expect BP will improve as patient diureses * Amlodipine has been stopped due to LE swelling * BP regimen has been changed to metoprolol and hydralazine * Will resume low dose oral furosemide (20mg) daily to promote natriuresis (5) Anemia: Plan: * Possibly related to steroid therapy * Continue PPI therapy * 05/28/25 iron sat 29%, ferritin 98.5. Awaiting FOBT * Patient was transfused one unit PRBC 05/29/25 Admission and Anticipated Discharge Date Admission Date: May 26, 2025 Subjective Mrs. Burton was evaluated in her hospital room this morning. Juarez catheter is in place. Patient reports brisk UO. Dyspnea and LE rash have resolved. She still has LE swelling Review of Systems Constitutional: no fever Eyes: no problem reported Ear, Nose, Mouth, Throat: no problem reported Respiratory: no dyspnea Cardiovascular: no chest pain Gastrointestinal: no abdominal pain, no nausea, no vomiting and no diarrhea/loose stools Genitourinary: no dysuria Integumentary: no rash Neurologic: no localized weakness Physical Exam Constitutional: not in distress Eyes: PERRL, conjunctivae normal, anicteric sclerae ENMT: external ear and nose normal, oropharynx normal Neck: trachea midline, no thyromegaly Respiratory: Auscultation: lungs clear to auscultation bilaterally Cardiovascular: Rate/Rhythm: regular rate and regular rhythm Extremities: + edema (tense bilateral LE swelling) Gastrointestinal (Abdomen): normal bowel sounds, soft, nontender, no hepatosplenomegaly Neurologic: Speech / Cognition: normal speech and normal cognition Results & Data Vital Signs (Past 12 Hours) Vital Signs Temp Pulse Pulse Resp BP Pulse Ox O2 Del Method 05/30/25 08:08 36.8 C 87 18 147/81 H 95 Room Air 05/30/25 04:15 36.9 C 95 H 18 122/76 92 Room Air 05/29/25 23:28 36.8 C 83 20 148/77 H 97 Room Air 05/29/25 21:47 86 Laboratory Results Laboratory Results - last 24 hr 05/29/25 05/29/25 05/29/25 07:01 12:05 17:03 WBC RBC Hgb Hct MCV MCH MCHC RDW Std Deviation RDW Coeff of Benny Plt Count MPV Sodium Potassium Chloride Carbon Dioxide Anion Gap BUN Creatinine Est Cr Clr Drug Dosing eGFR BUN/Creatinine Ratio Glucose POC Glucose 234 H 157 H Calcium Total Creatine Kinase Stool Occult Bld Scrn Blood Type O Positive Antibody Screen NEGATIVE Crossmatch See Detail 05/29/25 05/29/25 05/30/25 18:16 20:13 07:50 WBC RBC Hgb Hct MCV MCH MCHC RDW Std Deviation RDW Coeff of Benny Plt Count MPV Sodium Potassium Chloride Carbon Dioxide Anion Gap BUN Creatinine Est Cr Clr Drug Dosing eGFR BUN/Creatinine Ratio Glucose POC Glucose 116 H 183 H Calcium Total Creatine Kinase Stool Occult Bld Scrn Negative Blood Type Antibody Screen Crossmatch 05/30/25 08:36 WBC 6.11 RBC 3.05 L Hgb 8.6 L Hct 25.8 L MCV 84.6 MCH 28.2 MCHC 33.3 RDW Std Deviation 46.4 H RDW Coeff of Benny 15.3 H Plt Count 129 L MPV 10.2 Sodium 141 Potassium 3.8 Chloride 107 Carbon Dioxide 27 Anion Gap 7 BUN 45 H Creatinine 1.49 H Est Cr Clr Drug Dosing 62.0 eGFR 41.75 BUN/Creatinine Ratio 30.2 H Glucose 151 H POC Glucose Calcium 8.1 L Total Creatine Kinase 45 Stool Occult Bld Scrn Blood Type Antibody Screen Crossmatch PG Care Time/CCT Total # of Minutes Spent Total Time Spent with Patient: 50 min provided to review progress notes, laboratory data, interview and examine patient, enter orders to adjust antihypertensive regimen, update medical record Coding Level of Care Code 60972 SUB INP/OBS CARE 3/50MIN Diagnoses THUY (acute kidney injury) N17.9 Vasculitis I77.6 Pulmonary infiltrates R91.8 Hypertension I10 Hypertension type: unspecified Anemia D64.9 (4) Hypertension Hypertension type: unspecified Qualified Code(s): I10 - Essential (primary) hypertension
[2025-05-30 08:59] LABS: Hematocrit (blood only) 25.8 % (37.0-47.0); Hemoglobin 8.6 g/dL (12.0-16.0); Mean Corpuscular Hemoglobin 28.2 pg (25.0-34.0); Mean Corpuscular Volume 84.6 fL (80.0-100.0); Platelet Count 129 K/uL (130-400); RDW Standard Deviation 46.4 fL (36.4-46.3); Red Blood Count 3.05 M/uL (4.20-5.40); White Blood Count 6.11 K/ul (4.8-10.8)
[2025-05-30 09:16] LABS: Anion Gap 7.0 (3-11); Blood Urea Nitrogen 45.0 mg/dl (6-23); Calcium 8.1 mg/dl (8.6-10.3); Carbon Dioxide 27.0 mmol/L (21-32); Chloride 107.0 mmol/L (98-107); Creatinine Clr Calc Pharmacy 62.0 ml/min; Glucose 151.0 mg/dl (70-99(Fasting)); Potassium 3.8 mmol/L (3.5-5.1); Sodium 141.0 mmol/L (136-145)
--- NOTE | 2025-05-30 09:43 | Hospitalist Progress Note ---
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 -50lb weight gain over past few weeks -was on lasix 40mg po daily - increased to lasix 40mg IV BID - nephrology consulted -echo -lasix held by nephrology 2nd to rising cr -will D/C Juarez -plan to discharge home in next 24hrs (2) Anemia: Plan: -pt with h/h continuing to drop -heme 6.7 this am -will transfuse 2 units PRBC -start venofer for iron deficiency anemia -heme 8.6 today (3) Diabetic foot ulcers: Plan: -osteomyelitis of 2nd left toe -con't daptomycin (4) Type 2 diabetes mellitus: Plan: -Pharm consult for glycemic management -lanvasiliy (5) Hypertension: Plan: -lisinopril -amlodipine Plan Heparin SQ for DVT px Admission and Anticipated Discharge Date Admission Date: May 26, 2025 Subjective No events overnight. Pt feeling better this am. Review of Systems Review of Systems: CONST: Negative for fever, body aches and chills. HENT: Negative for neck pain/stiffness, headache, congestion, sore throat, swelling. EYES: Negative for discharge/pain or vision changes. RESP: Negative for cough/hemoptysis and +shortness of breath. CV: Negative chest pain, difficulty breathing, palpitations. ABD: Negative pain, nausea, vomiting. : Negative increase frequency, dysuria, blood in urine or stool. MUSC: Negative for muscle aches, +edema. SKIN: Negative rash, lesions/sores. NEURO: Negative headache, dizziness, weakness. Physical Exam Physical Exam: GENERAL APPEARANCE NAD, activity normal for age, well developed/ well nourished, no cyanosis, pallor, or diaphoresis. EYES lids/conjunctiva normal. EARS/NOSE/THROAT Mucous membranes moist, nares normal, lips/teeth normal uvula midline without oral pharyngeal erythema, exudate or swelling TMs normal bilaterally. No lymphangitis/lymphedema. HEAD/NECK normocephalic atraumatic, no facial trauma, neck is supple. RESPIRATORY respiratory effort normal, speaks in full sentences, no tripod position, no accessory muscle use. Lungs clear to auscultation without rhonchi, wheezes, rales CARDIAC Regular rate and rhythm, no edema. ABDOMINAL Soft, ND/NT. No evidence of fluid wave. No pulsatile masses on exam, rebound tenderness, Rosas sign or pain over Mcburney's point. MUSCLES/EXTREMITIES No abnormal range of motion, no swelling. SKIN Warm, pink and dry. No rashes, dermatoses, petechiae or lesions. NEUROLOGICAL Speech is clear and appropriate. Normal level of consciousness. Gait and coordination are normal. 5/5 strength in all extremities. PSYCH Normal mood and affect. Judgement/competence is appropriate Results & Data Results & Data Vital Signs (Past 12 Hours) Vital Signs Temp Pulse Pulse Resp BP Pulse Ox O2 Del Method 05/30/25 08:08 36.8 C 87 18 147/81 H 95 Room Air 05/30/25 04:15 36.9 C 95 H 18 122/76 92 Room Air 05/29/25 23:28 36.8 C 83 20 148/77 H 97 Room Air 05/29/25 21:47 86 PG Care Time/CCT Total # of Minutes Spent Total Time Spent with Patient: Total time spent is greater than 50% in coordination of care (as documented) at patient's floor/unit and/or counseling patient: Coding Level of Care Code 54962 SUB INP/OBS CARE 2/35MIN Diagnoses Fluid overload E87.70 Anemia D64.9 Anemia type: unspecified type Diabetic foot ulcers E11.621; L97.509 Type 2 diabetes mellitus E11.9 Primary hypertension I10 Hypertension type: primary hypertension (2) Anemia Anemia type: unspecified type Qualified Code(s): D64.9 - Anemia, unspecified (5) Hypertension Hypertension type: primary hypertension Qualified Code(s): I10 - Essential (primary) hypertension
--- NOTE | 2025-05-30 12:11 | XCELERA ---
[id number]
[2025-05-30] MEDS: FUROSEMIDE 20 MG TAB PO SCH (12:31)
--- NOTE | 2025-05-30 13:00 | Pharmacy Report ---
Pharmacy Glycemic Short Note 2 - Date of Service May 30, 2025 - Glycemic Short BSG Results (Last 24 hours): 05/29/25 05/29/25 05/30/25 17:03 20:13 07:50 Glucose POC Glucose 157 H 116 H 183 H 05/30/25 05/30/25 08:36 12:00 Glucose 151 H POC Glucose 129 H OUTPATIENT ANTIDIABETIC REGIMEN: * Basaglar 45 units SQ qPM * Humalog 20 units SQ TIDM + SS * NPH (taper) SQ daily with prednisone HbA1c: 8% () ASSESSMENT: 05/30/25: * Blood sugars elevated yesterday morning, but improved throughout the day * Prednisone discontinued yesterday - NPH discontinued along with it * Fasting blood sugar of 183 mg/dL w/ lunchtime blood sugar of 129 mg/dL * Will loosen Novolog now that steroids have been discontinued 05/28 * Stressors stable. Prednisone 10 mg qAM continues. * AM fasting BSG above goal, but this was after an overnight BSG that was below goal. Possible snacking overnight in response to BSG of 86 mg/dL. Will therefore not base changes on the 210 mg/dL and will reduce Lantus to prevent possible overnight hypoglycemia * Two post-prandial BSG's >200 mg/dL yesterday, but patient refused insulin x2 times yesterday AM. Will keep Novolog as-is. 05/27 * Pt is a 54 YOF with a history of DM1 on insulin therapy at home admitted with fluid overload in setting of leukocytoclastic vasculitis. Pharmacy consulted to assist with inpatient glycemic management. * BSGs [phone]/dL since admission. Reportedly took her Basaglar last evening prior to arrival. Received an additional 2 units of bolus insulin yesterday. * Receiving IV antibiotics, prednisone 10mg PO daily started today, diet ordered. * Will continue daily NPH with prednisone (10 units qAM). Lantus HS scale depending on BSG based upon home basal requirements. PLAN FOR INPATIENT GLYCEMIC CONTROL: * Basal insulin * Lantus 15-20 units SC HS (see EHR for details) * Bolus insulin * NovoLog per scale ACHS or Q6hrs while NPO * Goal Range: Low 110 mg/dL - High 140 mg/dL * Correction Factor: 20 mg/dL/unit * Nutritional / Prandial insulin per carb ratio of 1 unit per 6 grams CHO consumed
[2025-05-30] MEDS: DAPTOmycin 800 MG in SYRINGE 0 ML IV SCH (20:28)
[2025-05-31 07:37] LABS: Hematocrit (blood only) 25.7 % (37.0-47.0); Hemoglobin 8.5 g/dL (12.0-16.0); Mean Corpuscular Hemoglobin 28.6 pg (25.0-34.0); Mean Corpuscular Volume 86.5 fL (80.0-100.0); Platelet Count 153 K/uL (130-400); RDW Standard Deviation 48.4 fL (36.4-46.3); Red Blood Count 2.97 M/uL (4.20-5.40); White Blood Count 5.33 K/ul (4.8-10.8)
[2025-05-31 07:53] LABS: Anion Gap 6.0 (3-11); Blood Urea Nitrogen 46.0 mg/dl (6-23); Calcium 8.2 mg/dl (8.6-10.3); Carbon Dioxide 27.0 mmol/L (21-32); Chloride 106.0 mmol/L (98-107); Creatinine Clr Calc Pharmacy 56.9 ml/min; Glucose 220.0 mg/dl (70-99(Fasting)); Potassium 4.0 mmol/L (3.5-5.1); Sodium 139.0 mmol/L (136-145)
--- NOTE | 2025-05-31 10:46 | Discharge Summary ---
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 -50lb weight gain over past few weeks -was on lasix 40mg po daily - increased to lasix 40mg IV BID - nephrology consulted -echo -lasix held by nephrology 2nd to rising cr -will D/C Juarez -d/c home on lasix 20mg daily (2) Anemia: -pt with h/h continuing to drop -heme 6.7 this am -will transfuse 2 units PRBC -start venofer for iron deficiency anemia -heme 8.6 today (3) Diabetic foot ulcers: -osteomyelitis of 2nd left toe -con't daptomycin (4) Type 2 diabetes mellitus: -Pharm consult for glycemic management -jonh (5) Hypertension: -lisinopril -amlodipine stopped -metoprolol and hydralazine added by nephrology Plan Heparin SQ for DVT px Admission HPI Per Admitting Provider Pt is a 54 y/o female with PMH of diabetes, diabetic peripheral neuropathy, recent left second toe diabetic wound with underlying osteomyelitis on daptomycin, 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 Pt states she has gain 50lbs over the past few weeks. Prior to admission patient was told by her manager consumer to ER for inpatient diuresis. In the ER he labs show a cr 1.23 and CXR shows pulmonary vascular congestion. Pt was given 80mg IV lasix and will be admitted for further diuresis and evaluation by nephrology. Discharge Exam GENERAL APPEARANCE NAD, activity normal for age, well developed/ well nourished, no cyanosis, pallor, or diaphoresis. EYES lids/conjunctiva normal. EARS/NOSE/THROAT Mucous membranes moist, nares normal, lips/teeth normal uvula midline without oral pharyngeal erythema, exudate or swelling TMs normal bilaterally. No lymphangitis/lymphedema. HEAD/NECK normocephalic atraumatic, no facial trauma, neck is supple. RESPIRATORY respiratory effort normal, speaks in full sentences, no tripod position, no accessory muscle use. Lungs clear to auscultation without rhonchi, wheezes, rales CARDIAC Regular rate and rhythm, no edema. ABDOMINAL Soft, ND/NT. No evidence of fluid wave. No pulsatile masses on exam, rebound tenderness, Rosas sign or pain over Mcburney's point. MUSCLES/EXTREMITIES No abnormal range of motion, no swelling. SKIN Warm, pink and dry. No rashes, dermatoses, petechiae or lesions. NEUROLOGICAL Speech is clear and appropriate. Normal level of consciousness. Gait and coordination are normal. 5/5 strength in all extremities. PSYCH Normal mood and affect. Judgement/competence is appropriate Discharge Plan Discharge Items Patient Disposition: Home - Self-Care Reason For Visit: FLUID OVERLOAD Discharge Diagnosis: fluid overload Condition on Discharge: Fair Activity: Resume your previous activity Non-emergency contact: Primary Care Provider Call non-emergency contact if: you have any medication questions Follow-up/Referrals: Priscilla Lewis MD [Primary Care Provider] - Diet: Regular Addtl Attending Provider Instructions: Follow up with PMD and nephrology in 2 weeks Pending Studies at Discharge: No Stand-Alone Forms: My [facility] - Addiction Treatment Reviews & Information, Work/School Release, Smoking Cessation Medications and DC Order Prescriptions: New hydralazine 25 mg Tablet 25 mg PO TID Qty: 90 0RF furosemide 20 mg Tablet 20 mg PO QAM Qty: 30 0RF metoprolol succinate 25 mg Tablet Extended Release 24 Hr 25 mg PO QAM Qty: 30 0RF Continued (DME) pen needle, diabetic [Comfort EZ Pen [place]] 31 gauge x 5/16" needle See Dose Instructions .ROUTE .MEDSUPPLY Qty: 400 2RF Rx Instructions: inject 4 times daily as directed ondansetron 4 mg tablet,disintegrating 4 - 8 mg PO Q6H PRN (Reason: nausea and vomiting) Qty: 30 0RF (DME) Dexcom G7 Sensor Device See Rx Instructions .Route Qty: 3 11RF Rx Instructions: Change sensor every 10 days. metoclopramide HCl [Reglan] 5 mg tablet 5 mg PO DAILY Qty: 90 3RF Hold Instructions: please hold at this time lisinopril [Zestril] 40 mg tablet 40 mg PO QAM 90 Days Qty: 90 3RF Hold Instructions: HOLD due to recent acute kidney injury; only resume if instructed to do so by nephrology magnesium oxide 400 mg (241.3 mg magnesium) tablet 400 mg PO DAILY Qty: 90 3RF Hold Instructions: hold due to acute kidney injury pantoprazole 40 mg tablet,delayed release (DR/EC) 40 mg PO DAILY Qty: 90 3RF diclofenac sodium 1 % gel 4 g topical QID PRN (Reason: Pain) Hold Instructions: due to acute kidney injury please hold (DME) lancets [OneTouch Delica Lancets] 33 gauge misc See Dose Instructions .ROUTE .MEDSUPPLY Qty: 400 3RF Rx Instructions: Test blood sugar 4 times daily and prn (DME) OneTouch Verio test strips Strip See Dose Instructions .ROUTE .MEDSUPPLY Qty: 400 3RF Rx Instructions: test blood sugar four times daily and prn (DME) blood-glucose meter [OneTouch Verio Flex Start] Kit See Rx Instructions .Route Qty: 1 0RF Rx Instructions: As directed rosuvastatin 40 mg tablet 40 mg PO DAILY Qty: 90 3RF Hold Instructions: this must be held for the entire duration of your 6 week course of IV daptomycin hydrocodone-homatropine [Hydromet] 5-1.5 mg/5 mL solution 5 ml PO Q6H PRN (Reason: cough) Qty: 250 0RF aspirin 325 mg tablet 325 mg PO DAILY rizatriptan 10 mg tablet,disintegrating 10 mg PO Q2H PRN (Reason: migraine headache) Qty: 12 2RF Rx Instructions: do not exceed 3 doses per 24 hrs topiramate 25 mg tablet 50 mg PO QPM Hold Instructions: has not been taking Rx Instructions: 50 mg orally QPM; hydroxyzine HCl 25 mg Tablet 25 mg PO HS PRN (Reason: sleep) Qty: 20 0RF prednisone 10 mg tablet 10 mg PO DIRECTED Qty: 60 0RF Rx Instructions: start 05/14/25, take with food. 5 tabs PO QD x 4 days, then 4 tabs PO QD x 4 days, then 3 tabs PO QD x 4 days, then 2 tabs PO QD x 4 days, 1 tab PO QD x 4 days. Novolin N FlexPen 100 unit/mL (3 mL) insulin pen See Rx Instructions .ROUTE .COMPLEX Qty: 15 0RF Rx Instructions: Novolin-N -- take at same time each morning with your prednisone. See taper schedule given at [facility] gabapentin 300 mg capsule 300 mg PO TID Qty: 120 5RF insulin lispro [Humalog KwikPen Insulin] 100 unit/mL insulin pen See Rx Instructions .ROUTE .COMPLEX Qty: 45 5RF Dose Instruction: INJECT 40 UNITS SUBCUTANEOUSLY WITH MEALS-SLIDING SCALE, UP TO ADDITIONAL 20 UNITS EACH MEAL. MAX DAILY DOSE 180 UNITS Rx Instructions: INJECT 20 UNITS SUBCUTANEOUSLY WITH MEALS along with SLIDING SCALE Basaglar Tempo Pen(U-100)Insln 100 unit/mL (3 mL) insulin pen, sensor 45 unit subcut QPM Qty: 15 5RF daptomycin 500 mg recon soln 800 mg IV DAILY Rx Instructions: x 6 weeks. Discontinued amlodipine [Norvasc] 5 mg tablet 10 mg PO QAM 90 Days Qty: 180 3RF furosemide 20 mg tablet 40 mg PO QAM 30 Days Qty: 60 3RF Discharge Orders: Discharge Order (Routine); Ordered 05/31/25 Ordered By: Magdiel Ty Admission Data Admit Date/Time: 05/26/25 17:18 Attending Provider: Magdiel Ty Admit Provider: Magdiel Ty Primary Care Provider: Priscilla Lewis Other Providers: Tobias Ga; Magdiel Ty; Jericho Medrano; [employer]; Alejo Lyman Hospital Stay Data Consultations 05/26/25 16:48 ED Decision to Admit Stat 05/26/25 17:09 ED Decision to Admit Stat 05/26/25 17:12 Consult Nephrology Routine Pending Results Patient Have Any Pending Studies at Discharge: No Discharge Instructions Given to Patient (Per Discharging Provider) Follow up with PMD and nephrology in 2 weeks Total Time Total Time Spent Total Time Spent (In Minutes): 50 Coding Level of Care Code 12257 INP/OBS DISCH >30 MIN Diagnoses Fluid overload E87.70 Anemia D64.9 Anemia type: unspecified type Diabetic foot ulcers E11.621; L97.509 Type 2 diabetes mellitus E11.9 Primary hypertension I10 Hypertension type: primary hypertension
[2025-05-31] MEDS: BUMETANIDE 1 MG TAB PO SCH (11:57)
--- NOTE | 2025-05-31 12:44 | Nephrology Progress Note ---
Date of Service May 31, 2025 Assessment & Plan (1) THUY (acute kidney injury): (2) Bilateral leg edema: (3) Diabetes: (4) Anemia: (5) Hypertension: Plan 54 yo F with PMH of HTN, baseline normal kidney function, baseline creatinine 0.8-1.0 mg/dl, admitted to the hospital with worsening bilateral lower extremity edema in the setting of recent repeated episodes of acute kidney injury, failed outpatient diuretic. She had multiple hospitalization over last 1 month initially she was admitted on 05/06/25 with a lE rash and concern for leukocytoclastic vasculitis 2/2 ciprofloxacin. She has been having worsening L 2nd toe infection over several weeks, has been following with podiatry and started on Bactrim on 03/18. Had debridement with podiatry 03/25 and was prescribed clindamycin 300 mg BID and ciprofloxacin 500 mg BID. She took the clindamycin but not the ciprofloxacin because she was concerned about the two together. Clindamycin cleared the infection and had another debridement on 04/16. Had wound debridement on 05/08. Also noted to have rash on bilateral lower extremities concerning for leukocytoclastic vasculitis 2/ ciprofloxacin. Had THUY during last hospitalization and creatinine peaked to 3.8 thought to be secondary to acute interstitial nephritis with antibiotic and was on steroid which was rapidly tapered off. Kidney function improved and creatinine was down to 1.2-1.3. As an outpatient she was getting higher dose of diuretics without any improvement in lower extremity edema and presented to ER for further management. Has high grade proteinuria but previously serological workup and paraproteinemia workup was unremarkable. No hematuria, pyuria. Renal ultrasound was otherwise unremarkable. She was on amlodipine which thought to be contributing to the lower extremity edema it was stopped and yesterday she was started on hydralazine. Initially she was on IV Lasix which was decreased down to 20 mg over last few days but lower extremity edema continues to worsen. On admission creatinine was 1.3 which slightly worsened over last few days, now up to 1.6 this morning. --Start on Bumex 1 mg daily, monitor intake and output. If no significant urine output or lower extremity edema does not improve, may need to go on higher dose of Bumex. --Check kidney function and electrolyte in the morning as she does have high risk for progressive worsening of kidney function with higher dose of diuretic with recent repeated acute kidney injury. --Monitor intake and output, encourage to maintain increase p.o. intake --low-salt diet, advised to keep leg elevated and use compression stockings. Admission and Anticipated Discharge Date Admission Date: May 26, 2025 Anne Marie Guzmán was seen and evaluated this morning. She reports overall feeling about the same. Continues to have significant bilateral lower extremity edema without any improvement on just Lasix 20 mg daily. Intake and output unmeasured but she feels like she has been voiding normally. Kidney function staying relatively stable although slight increase in creatinine up to 1.6 mg/dl, noted this morning. Blood pressure reasonable. Review of Systems Review of Systems: All systems reviewed & are unremarkable except as noted in Subjective Physical Exam Constitutional: WD/WN, vitals as above no acute distress Eyes: + anicteric sclerae Neck: normal visual inspection Respiratory: Auscultation: lungs clear to auscultation bilaterally Cardiovascular: Rate/Rhythm: regular rate and regular rhythm Heart Sounds: normal S1 and normal S2 Extremities: + edema (3 + b/l LE edema) Skin: + rash Neurologic: no focal motor deficits Psychiatric: Orientation: alert and oriented x 3 Results & Data Vital Signs (Past 12 Hours) Vital Signs Temp Pulse Pulse Resp BP BP Pulse Ox 05/31/25 12:04 36.7 C 90 18 145/76 H 94 05/31/25 10:48 36.6 C 84 18 182/96 H 153/80 H 96 05/31/25 08:40 36.6 C 84 18 153/80 H 96 05/31/25 08:18 95 H 05/31/25 03:01 36.8 C 87 16 121/75 94 O2 Del Method 05/31/25 12:04 Room Air 05/31/25 10:48 05/31/25 08:40 Room Air 05/31/25 08:18 05/31/25 03:01 Room Air PG Care Time/CCT Total # of Minutes Spent Total Time Spent with Patient: Total time spent is greater than 50% in coordination of care (as documented) at patient's floor/unit and/or counseling patient: Coding Level of Care Code 66058 SUB INP/OBS CARE 3/50MIN Diagnoses THUY (acute kidney injury) N17.9 Bilateral leg edema R60.0 Diabetes E11.9 Anemia D64.9 Primary hypertension I10 Hypertension type: primary hypertension (5) Hypertension Hypertension type: primary hypertension Qualified Code(s): I10 - Essential (primary) hypertension
[2025-06-01 03:56] VITALS: RESP 18
[2025-06-01 07:35] LABS: Hematocrit (blood only) 22.1 % (37.0-47.0); Hemoglobin 7.4 g/dL (12.0-16.0); Mean Corpuscular Hemoglobin 29.1 pg (25.0-34.0); Mean Corpuscular Volume 87.0 fL (80.0-100.0); Platelet Count 133 K/uL (130-400); RDW Standard Deviation 47.3 fL (36.4-46.3); Red Blood Count 2.54 M/uL (4.20-5.40); White Blood Count 4.24 K/ul (4.8-10.8)
[2025-06-01 07:57] LABS: Anion Gap 5.0 (3-11); Blood Urea Nitrogen 43.0 mg/dl (6-23); Calcium 8.3 mg/dl (8.6-10.3); Carbon Dioxide 28.0 mmol/L (21-32); Chloride 107.0 mmol/L (98-107); Creatinine Clr Calc Pharmacy 63.7 ml/min; Glucose 209.0 mg/dl (70-99(Fasting)); Potassium 3.8 mmol/L (3.5-5.1); Sodium 140.0 mmol/L (136-145)
[2025-06-01] MEDS: METOPROLOL SUCC 50MG EXT REL TAB PO SCH (09:24)
--- NOTE | 2025-06-01 09:47 | Hospitalist Progress Note ---
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 Review of Systems Review of Systems: CONST: Negative for fever, body aches and chills. HENT: Negative for neck pain/stiffness, headache, congestion, sore throat, swelling. EYES: Negative for discharge/pain or vision changes. RESP: Negative for cough/hemoptysis and +shortness of breath. CV: Negative chest pain, difficulty breathing, palpitations. ABD: Negative pain, nausea, vomiting. : Negative increase frequency, dysuria, blood in urine or stool. MUSC: Negative for muscle aches, +edema. SKIN: Negative rash, lesions/sores. NEURO: Negative headache, dizziness, weakness. Physical Exam Physical Exam: GENERAL APPEARANCE NAD, activity normal for age, well developed/ well nourished, no cyanosis, pallor, or diaphoresis. EYES lids/conjunctiva normal. EARS/NOSE/THROAT Mucous membranes moist, nares normal, lips/teeth normal uvula midline without oral pharyngeal erythema, exudate or swelling TMs normal bilaterally. No lymphangitis/lymphedema. HEAD/NECK normocephalic atraumatic, no facial trauma, neck is supple. RESPIRATORY respiratory effort normal, speaks in full sentences, no tripod position, no accessory muscle use. Lungs clear to auscultation without rhonchi, wheezes, rales CARDIAC Regular rate and rhythm, no edema. ABDOMINAL Soft, ND/NT. No evidence of fluid wave. No pulsatile masses on exam, rebound tenderness, Rosas sign or pain over Mcburney's point. MUSCLES/EXTREMITIES No abnormal range of motion, no swelling. SKIN Warm, pink and dry. No rashes, dermatoses, petechiae or lesions. NEUROLOGICAL Speech is clear and appropriate. Normal level of consciousness. Gait and coordination are normal. 5/5 strength in all extremities. PSYCH Normal mood and affect. Judgement/competence is appropriate Results & Data Results & Data Vital Signs (Past 12 Hours) Vital Signs Temp Pulse Pulse Resp BP Pulse Ox O2 Del Method 06/01/25 08:24 36.9 C 91 H 18 172/82 H 93 Room Air 06/01/25 05:33 77 06/01/25 03:56 36.6 C 88 18 126/87 94 Room Air 06/01/25 03:33 91 H 05/31/25 23:48 36.7 C 81 16 127/74 97 Room Air PG Care Time/CCT Total # of Minutes Spent Total Time Spent with Patient: Total time spent is greater than 50% in coordination of care (as documented) at patient's floor/unit and/or counseling patient: Coding Level of Care Code 02987 SUB INP/OBS CARE 2/35MIN Diagnoses Fluid overload E87.70 Anemia D64.9 Anemia type: unspecified type Diabetic foot ulcers E11.621; L97.509 Type 2 diabetes mellitus E11.9 Primary hypertension I10 Hypertension type: primary hypertension (2) Anemia Anemia type: unspecified type Qualified Code(s): D64.9 - Anemia, unspecified (5) Hypertension Hypertension type: primary hypertension Qualified Code(s): I10 - Essential (primary) hypertension
[2025-06-01 11:46] VITALS: BP 170/80; PULSE 86; TEMP 98.2; O2SAT 94
--- NOTE | 2025-06-01 11:48 | Nephrology Progress Note ---
Date of Service June 01, 2025 Assessment & Plan (1) THUY (acute kidney injury): (2) Bilateral leg edema: (3) Diabetes: (4) Anemia: (5) Hypertension: Plan 54 yo F with PMH of HTN, baseline normal kidney function, baseline creatinine 0.8-1.0 mg/dl, admitted to the hospital with worsening bilateral lower extremity edema in the setting of recent repeated episodes of acute kidney injury, failed outpatient diuretic. She had multiple hospitalization over last 1 month initially she was admitted on 05/06/25 with a lE rash and concern for leukocytoclastic vasculitis 2/2 ciprofloxacin. She has been having worsening L 2nd toe infection over several weeks, has been following with podiatry and started on Bactrim on 03/18. Had debridement with podiatry 03/25 and was prescribed clindamycin 300 mg BID and ciprofloxacin 500 mg BID. She took the clindamycin but not the ciprofloxacin because she was concerned about the two together. Clindamycin cleared the infection and had another debridement on 04/16. Had wound debridement on 05/08. Also noted to have rash on bilateral lower extremities concerning for leukocytoclastic vasculitis 2/2 ciprofloxacin. Had THUY during last hospitalization and creatinine peaked to 3.8 thought to be secondary to acute interstitial nephritis with antibiotic and was on steroid which was rapidly tapered off. Kidney function improved and creatinine was down to 1.2-1.3. As an outpatient she was getting higher dose of diuretics without any improvement in lower extremity edema and presented to ER for further management. Has high grade proteinuria but previously serological workup and paraproteinemia workup was unremarkable. No hematuria, pyuria. Renal ultrasound was otherwise unremarkable. She was on amlodipine which thought to be contributing to the lower extremity edema it was stopped and started on hydralazine. Significant increase in urine output noted on Bumex 1 mg although lower extremity edema continues to be quite significant which may take time to improve. Kidney function staying relatively stable, creatinine 1.5 mg/d electrolyte acceptable. Hemoglobin staying low with adequate iron stores. --Increase Bumex to 2 mg daily, will give extra 1 mg now as she already received 1 mg this morning. Continue to monitor intake and output and aim for slightly net negative. Okay to be discharged. --May have to accept mild increase in creatinine in order to improve the significant lower extremity edema, will need close monitoring of kidney function and electrolyte on higher dose of diuretic. Advised to have labs done in next 2 to 3 days and she has outpatient follow-up at CKD clinic on 06/06/2024. Diuretic dose can be adjusted further based on the response. --encourage to maintain increase p.o. intake --low-salt diet, advised to keep leg elevated and use compression stockings. Admission and Anticipated Discharge Date Admission Date: May 26, 2025 Anne Marie Guzmán was seen and evaluated this morning. She reports overall feeling about the same. Continues to have significant bilateral lower extremity edema however, she reports improvement in urine output and was net negative more than 2 L fluid Bumex 1 mg yesterday. Kidney function staying relatively stable, creatinine was 1.5 mg/dl. Hemoglobin has been below, no evidence of iron deficiency. Blood pressure was elevated this morning. Review of Systems Review of Systems: All systems reviewed & are unremarkable except as noted in Subjective Physical Exam Constitutional: WD/WN, vitals as above no acute distress Eyes: + anicteric sclerae Respiratory: Auscultation: lungs clear to auscultation bilaterally Cardiovascular: Rate/Rhythm: regular rate and regular rhythm Heart Sounds: normal S1 and normal S2 Extremities: + edema (3 + b/l LE edema) Neurologic: no focal motor deficits Psychiatric: Orientation: alert and oriented x 3 Results & Data Vital Signs (Past 12 Hours) Vital Signs Temp Pulse Pulse Resp BP Pulse Ox O2 Del Method 06/01/25 11:45 36.8 C 86 18 170/80 H 94 Room Air 06/01/25 08:24 36.9 C 91 H 18 172/82 H 93 Room Air 06/01/25 05:33 77 06/01/25 03:56 36.6 C 88 18 126/87 94 Room Air 06/01/25 03:33 91 H 05/31/25 23:48 36.7 C 81 16 127/74 97 Room Air PG Care Time/CCT Total # of Minutes Spent Total Time Spent with Patient: Total time spent is greater than 50% in coordination of care (as documented) at patient's floor/unit and/or counseling patient: Coding Level of Care Code 29185 SUB INP/OBS CARE 3/50MIN Diagnoses THUY (acute kidney injury) N17.9 Bilateral leg edema R60.0 Diabetes E11.9 Anemia D64.9 Primary hypertension I10 Hypertension type: primary hypertension (5) Hypertension Hypertension type: primary hypertension Qualified Code(s): I10 - Essential (primary) hypertension
[2025-06-01] MEDS: BUMETANIDE 1 MG TAB PO ONE ×2 (13:05)
[2025-06-02] MEDS ORDERED: BUMETANIDE 1 MG TAB PO SCH (09:00)
--- NOTE | 2025-06-03 15:31 | Coding Query ---
CODING QUERY To promote full compliance with coding requirements relating to patient care, provider participation is requested in all cases of stitcher operator uncertainty. Please assist us with the question(s) below: Coding Question(s): Pt admitted with fluid overload. Recent admission for vasculitis / THUY due to CIPRO. Pt admitted with 50 lb weight gain. Please document, if known or suspected, the etiology of the fluid overload. Thank you . Jake Crowder [facility] Physician's Response(s): THUY Principal Diagnosis: "that condition established after study, to be chiefly responsible for occasioning the admission of the patient to the hospital for care." Co-Existing Principal Diagnosis: "when two or more diagnoses equally meet the criteria for principal diagnosis as determined by the circumstances of admission, diagnostic work up, and/or therapy provided, and the Alphabetic Index, Tabular List, or another coding guideline does not provide sequencing direction, any one of the diagnoses may be sequenced first." "When the physician has documented what appears to be a current diagnosis in the body of the record, but has not included the diagnosis in the final diagnostic statement, the physician should be asked whether the diagnosis should be added." (Source Coding Clinic 2 QTR90. p3-4) TAY
== END 2025-06-01 14:31 | disposition home health service (06) | DRG 683 ==
LOC: ED 15:02 → EDINP 17:18 → 2N 19:36 → 2W 05-27 20:07